=== PATIENT | female | born 1980 | race Caucasian/White ===

== ENCOUNTER 2018-12-10 11:33 | Day surgery (SDC) | payer OTHER, SELFPAY ==
--- NOTE | 2018-12-10 06:52 | HP.PCM_ITS ---
History and Physical Date of Admission: 12/10/18 HISTORY AND PHYSICAL ? Dorothy Joshua 1980 ? REFERRING PHYSICIAN: ??Waqar Rueda, JDE DEVELOPER ? CHIEF COMPLAINT: ??Consult (colonoscopy) ? HPI: The patient is a 38 year old female referred for endoscopy. ?Dorothy notes a family history of colon cancer-father was diagnosed and from colon cancer in his 50s. ?Patient had a prior colonoscopy by Dr. Angel in 2010 for evaluation of rectal bleeding. ?He had recommended a repeat colonoscopy in 5 years due to her family history. ?Patient denies any changes in bowel habits, blood in stools, dark stools or other concerns currently. ?The patient ?notes no history of upper GI complaints. ? Patient's past medical history is significant for hypercholesterolemia, coronary artery disease, myocardial infarction, s/p drug-eluting LAD stent placement, type I diabetes mellitus with insulin pump. ?Patient follows with ERIC Pitts in primary care and with Dr. Quintana in cardiology. ?Her most recent cardiology note from 05/20/[address] Quintana is reviewed, as well as her stress test from July 2018. ?She denies any chest pain, shortness of breath or recent hospitalizations. ? ? PAST MEDICAL HISTORY PAST MEDICAL HISTORY Diagnosis Date ? Hypercholesteremia ? ? PA (myocardial infarction) (HCC) 02/2016 ? Type I (juvenile type) diabetes mellitus without mention of complication, uncontrolled ? ? since age 11 ? ? PAST SURGICAL HISTORY PAST SURGICAL HISTORY Procedure Laterality Date ? DELIVERY ONLY ? 2004, 2006 ? , low cervical ? COLONOSCOP W/ OR W/O [facility] SPEC ? 06/04/08 ? COLONOSCOP W/ OR W/O [facility] SPEC ? 10/31/2011 ? Colonoscopy ? HEART CATHETERIZATION ? 03/16/2016 ? with stent placement ? MANIPULATION-SHOULDER DISLOCATION W/[facility] ? ? ? PAST SURGICAL HISTORY OF ? 1999 ? [place] ? PAST SURGICAL HISTORY OF ? ? ? Adnoids Removed ? RECONSTRUCT PROX HUMERAL IMPLANT Right 10/2016 ? Arthroplasty, shoulder ? ? CURRENT MEDICATIONS ? Current Outpatient Prescriptions: BRILINTA 90 mg tablet Take 1 tablet by mouth twice daily. aspirin 81 mg chewable tablet Take 1 tablet by mouth once daily. metoprolol succinate ER (TOPROL XL) 25 mg 24 hr tablet Take 1 tablet by mouth once daily. rosuvastatin (CRESTOR) 20 mg tablet Take 1 tablet by mouth daily at bedtime. nitroglycerin sublingual (NITROQUICK) 0.4 mg SL tablet Dissolve 1 tablet under the tongue as needed. FOR CHEST PAIN. IF NO RELIEF CALL 911 spironolactone (ALDACTONE) 25 mg tablet Take 0.5 tablets by mouth once daily. triamcinolone acetonide (KENALOG) 0.1 % cream Apply 1 application to affected area three times daily. Apply sparingly to area for rash/itching. coenzyme Q10 (COENZYME Q-10) 100 mg cap capsule Take 100 mg by mouth twice daily. ctfirsru-ndnaoejtsys-tlho cb25 116-100 mg cap Take by mouth once daily. Multivitamin capsule Take 1 capsule by mouth once daily. ferrous sulfate 325 mg (65 mg iron) tablet Take 325 mg by mouth daily with breakfast. enalapril (VASOTEC) 2.5 mg tablet Take half tablet daily (Patient taking differently: Take 1/4 of a tablet daily) insulin lispro (HUMALOG) 100 unit/mL injection as directed in insulin pump up to 100 units daily blood sugar diagnostic (Stylecrook ULTRA TEST) test strip check blood sugars 6 times daily glucagon, human recombinant, (GLUCAGON EMERGENCY KIT, HUMAN,) 1 mg injection INJECT ?SUBCUTANEOUSLY. USE DIRECTED insulin glargine (LANTUS) 100 unit/mL injection Use as directed if pump fails up to 50 units/day BIOTIN ORAL Take ?by mouth. ? Insulin Syringe-Needle U-100 (BD INSULIN SYRINGE UF II) 1/2 mL 31 x 5/16 Syrg use as directed when pump fails peg 3350-Electrolytes (GOLYTELY) 236-22.74-6.74 -5.86 gram suspension Take 4,000 mL by mouth one time only for 1 dose. ? No current facility-administered medications for this visit. ? ALLERGIES: Lipitor [Atorvastatin Calcium] ? PERSONAL HISTORY: SOCIAL HISTORY Social History ??Marital status: ?Spouse name: Santos ?Years of education: 18 ?Number of children: 2 ? 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 Social History Main Topics ??Smoking status: Never Smoker ?Smokeless tobacco: Never Used ?Alcohol use: No ?Sexual activity: Yes ?Partners with: Male ? control/protection: Tubal Ligation ? ? FAMILY HISTORY: FAMILY HISTORY FAMILY HISTORY Problem Relation Age of Onset ? Ischemic Heart Disease Mother ? ? Diabetes Mother ? ? Heart Maternal Grandfather ? ? Colon Cancer Father ? ? REVIEW OF SYMPTOMS: ??The review of systems data was entered by the nurse and reviewed by me ? Nursing Notes: Lalitha Holman RN ?10/30/2018 ?4:24 PM ?Signed REVIEW OF SYSTEMS: ?General:???The patient notes fatigue, denies weight loss, denies weight gain, denies feeling hot, and notes feelings of cold. ?Eyes: ?The patient denies glaucoma, denies eye injury/surgery, wears glasses or contacts. ?Ear/Nose/Throat: ?The patient denies allergies, denies hayfever, denies ear infections, and denies bloody noses. ?Cardiovascular: ?The patient denies chest pain, notes heart disease, denies high blood pressure,notes cardiac stent, notes prior heart attack, denies irregular heart beat, notes high cholesterol, ?denies poor circulation, denies heart failure, other cardiac issues, denies claudication, denies cold feet, denies peripheral arterial stent. ?Respiratory: ?The patient denies tuberculosis, denies pneumonia, denies frequent cough, denies pulmonary embolism, denies shortness of breath, and denies coughing up blood. ?Gastrointestinal: ?The patient denies difficulty swallowing, denies acid reflux, denies ulcers, denies vomiting, denies jaundice/hepatitis, denies gallbladder problems, denies black or tarry stools, denies hemorrhoids, denies bleeding from rectum, denies diverticulitis, denies constipation, denies diarrhea, denies loss of stool control, and denies hernias. ?Kidney/Bladder: ?The patient denies kidney stones, denies urine infections, and denies bloody urine. ?Skin: ?The patient denies a history of skin cancer, denies bleeding/changing moles, and denies a history of skin rash. ?Neurologic: ?The patient denies a history of epilepsy/convulsions, denies headaches, denies head/spinal injuries, and denies stroke/TIA. ?Psychiatric: ?The patient denies psychiatric medications, denies depression, and denies voices, denies substance abuse. ?Endocrine: ?The patient denies thyroid disorders, notes diabetes, and denies hormonal problems. ?Hematologic: ?The patient denies a history of bruising, denies bleeding, and denies anemia, denies blood clots. ?Infections: ?The patient denies a history of measles and mumps, denies rheumatic fever, and denies sexually transmitted diseases. ?Musculoskeletal: ?The patient denies back pain/injury, denies back problems, denies sciatica, denies knee/foot trouble, denies arthritis, or denies gout. ? ? When was patient's last Mammogram screening? 08/2018 ? ?Last Colonoscopy: ?10/2011 ? Lalitha Holman RN? I have confirmed and edited as necessary, the PFSH and ROS obtained by others. ? ? PHYSICAL EXAMINATION: ? General: ?The patient is 38 year old female, well nourished, well hydrated in no acute distress. ?The patient is oriented to time, place, and person. ? VITALS: Blood pressure 96/60, pulse 66, weight 59.4 kg (131 lb).?Body mass index is 22.14 kg/m?.? ? HEENT: ?Normal cephalic, ataumatic, pupils are equally round, sclera are anicteric, mucous membranes are moist, oropharynx is clear. ?Neck has no masses, asymmetry or lymphadenopathy. ? ? Respiratory: ?Clear to auscultation and percussion. ?Normal respiratory excursion and pattern. ? Cardiac: ?Examination is regular rate and rhythm. ?Normal S1/S2 ? Abdominal exam: ?Soft, nontender, ?with no palpable masses. ?No hepatosplenomegaly. ?No palpable hernias. ? Rectal exam: exam deferred ? Extremities: ?no clubbing, cyanosis or edema. ?No adenopathy. ? Other: ? LABORATORY VALUES: As Noted ? RADIOLOGIC STUDIES: ?As Noted ? ? Assessment ? IMPRESSION: encounter for high-risk screening colonoscopy due to family history of colon cancer in a first-degree relative ? PLAN: ?I have reviewed my findings with Dr. Mcgregor. ?Dr. Mcgregor has also reviewed patient's recent cardiac testing. We will plan for screening colonoscopy with Monitored Anesthetic Care. ?We discussed the risks and benefits of the planned endoscopy. ?I have informed the patient that complications can occur including failure to complete the endoscopy and perforation. ?The patient had the opportunity to ask questions concerning the planned endoscopy. ?My staff has also explained the procedure to the patient in understandable terms and has given the patient printed material concerning the procedure. ?The patient freely consents to surgery. ? I plan to use golytely bowel preparation for endoscopy ? Patient to remain on?her Brilinta and aspirin for the procedure ? Patient has insulin pump, states she is comfortable managing adjustments which will be required when she is on clear liquids prior to procedure ? I plan for monitored anesthetic care.??Patient will need PAT ? Diagnoses: (Z12.11) Encounter for screening for malignant neoplasm of colon ?(primary encounter diagnosis) (Z80.0) Family history of colon cancer ? My findings have been communicated to Dr. Rueda?via shared medical record. ?This note will be forwarded to ?ERIC Abel. ?? Return to Clinic: The patient is instructed to follow-up with me 1 week post operatively. ? ? Leslie Hendrickson PA-C
[2018-12-10 11:48] VITALS: BP 128/67; PULSE 84; RESP 16; TEMP 37.3; O2SAT 100; BMI 21.9
[2018-12-10 12:06] LABS: Bedside Glucose 113 mg/dL (70-110)
[2018-12-10 13:32] VITALS: BP 104/64; BP 128/67; PULSE 87; RESP 16; TEMP 36.5; O2SAT 95
[2018-12-10 13:37] VITALS: BP 109/70; BP 128/67; PULSE 85; RESP 16; O2SAT 100
[2018-12-10 13:42] VITALS: BP 107/71; BP 128/67; PULSE 78; RESP 16; O2SAT 100
[2018-12-10 13:47] VITALS: BP 116/77; BP 128/67; PULSE 80; RESP 16; TEMP 37.1; O2SAT 100
[2018-12-10 14:07] VITALS: BP 128/67
--- NOTE | 2018-12-15 11:10 | OP.ENDO_ITS ---
Patient Name: Dorothy Joshua Procedure Date: 12/10/2018 12:33 PM Date of : 1980 Age: 38 Procedure: Colonoscopy Indications: Screening in patient at increased risk: Family history of 1st-degree relative with colorectal cancer Providers: Waqar Mcgregor MD Referring MD: Waqar Rueda Medicines: Monitored Anesthesia Care Patient Profile: This is a 38 year old female. Refer to note in patient chart for documentation of history and physical. Last Colonoscopy: 5 years ago. Complications: No immediate complications. Procedure: Pre-Anesthesia Assessment: - Prior to the procedure, a History and Physical was performed, and patient medications and allergies were reviewed. The patient is competent. The risks and benefits of the procedure and the sedation options and risks were discussed with the patient. All questions were answered and informed consent was obtained. Patient identification and proposed procedure were verified by the physician, the nurse and the childbirth and infant care teacher in the procedure room. Mental Status Examination: alert and oriented. Airway Examination: normal oropharyngeal airway and neck mobility. Respiratory Examination: clear to auscultation. CV Examination: normal. Prophylactic Antibiotics: The patient does not require prophylactic antibiotics. Prior Anticoagulants: The patient has taken anticoagulant medication, last dose was 1 day prior to procedure. ASA Grade Assessment: III - A patient with severe systemic disease. After reviewing the risks and benefits, the patient was deemed in satisfactory condition to undergo the procedure. The anesthesia plan was to use moderate sedation / analgesia (conscious sedation). Immediately prior to administration of medications, the patient was re-assessed for adequacy to receive sedatives. The heart rate, respiratory rate, oxygen saturations, blood pressure, adequacy of pulmonary ventilation, and response to care were monitored throughout the procedure. The physical status of the patient was re-assessed after the procedure. After I obtained informed consent, the scope was passed under direct vision. Throughout the procedure, the patient's blood pressure, pulse, and oxygen saturations were monitored continuously. The pediatric colonoscope was introduced through the anus and advanced to the cecum, identified by the appendiceal orifice, ileocecal valve and palpation. The colonoscopy was performed without difficulty. The patient tolerated the procedure well. The quality of the bowel preparation was good. Scope In: 1:11:05 PM Scope Withdrawal Time 0 hours 3 minutes 52 seconds Scope Out: 1:26:21 PM Total Procedure Duration Time 0 hours 15 minutes 16 seconds Findings: The perianal and digital rectal examinations were normal. The entire examined colon appeared normal on direct and retroflexion views. Impression: - The entire examined colon is normal on direct and retroflexion views. - No specimens collected. Recommendation: - Discharge patient to home. - Resume previous diet. - Continue present medications. - Repeat colonoscopy in 5 years for screening purposes. Procedure Code(s): --- Professional --- 75345, Colonoscopy, flexible; diagnostic, including collection of specimen(s) by brushing or washing, when performed (separate procedure) CPT copyright 2017 [employer]. All rights reserved. The codes documented in this report are preliminary and upon pocket grinder operator review may be revised to meet current compliance requirements. Waqar Mcgregor MD 12/10/2018 1:36:23 PM This report has been signed electronically. Number of Addenda: 0 Note Initiated On: 12/10/2018 12:33 PM
--- OUTSIDE RECORDS SUMMARY | 2019-02-14 07:40 | XMS RPT_ITS | Clinical Summary ---
:1980 Author Organization [facility]ly [facility] Address [address] [place] [address] Phone Care Team Providers Name Role Phone Cheryl CONTENT CURATOR, Ivone Bach Unavailable Conditions or Problems Problem Name Problem Code Onset Status Entry Provider Comment Standard Annotate Date Date Description Insulin pump 615360178 Active Ivone Bach Equipment status (SNOMED CT) 05/01 05/02 Cheryl CONTENT CURATOR finding Hx of urinary 143316550781 Active Ivone Bach History of tract 7 (SNOMED 01/08 01/08 Shook CONTENT CURATOR urinary tract infection CT) infection Breast lump 98922074 Active Ivone Bach Breast lump (SNOMED CT) 01/08 01/08 Shook CONTENT CURATOR Cataract 900451150 Active Ivone Bach Cataract (SNOMED CT) 01/08 01/08 Shotim CONTENT CURATOR Hyperlipidemi 15215906 Active Ivone Bach Hyperlipidemia a (SNOMED CT) 01/08 01/08 Rhiannaok CONTENT CURATOR Hx of cardiac 452544611 Active Ivone Bach History of stents (SNOMED CT) 01/08 01/08 Cheryl CONTENT CURATOR placement of stent for coronary artery disease Diabetes 833181821920 Active Ivone Bach Diabetes mellitus, 02 (SNOMED 01/08 01/08 Shook CONTENT CURATOR mellitus type [address] without without retinopathy retinopathy Medications Medication Instructions Start Stop Generic Name NDC Provider Date Date HUMALOG 100 Up to 65 units INSULIN LISPRO 79722443117 Ivone Bach UNIT/ML SOCT daily in Cheryl HOYOS insulin pump ENALAPRIL MALEATE Take one daily ENALAPRIL 83205193074 Ivone Bach 2.5 MG TABS MALEATE Cheryl CONTENT CURATOR ONE TOUCH ULTRA Check BG 6 TOUCH ULTRA Ivone J TEST STRIPS times daily 29 TEST STRIPS Shook CONTENT CURATOR GLUCAGON Use as directed GLUCAGON (RDNA) 32691230833 Ivone Mikala EMERGENCY 1 MG Shotim CONTENT CURATOR KIT HUMALOG 100 Up to 65 units INSULIN LISPRO 45306855699 Ivone Bach UNIT/ML SOCT daily in pump. Shook CONTENT CURATOR HUMALOG 100 Inject up to 65 INSULIN LISPRO 34193120255 Ivone Bach UNIT/ML SOLN units daily in Shook CONTENT CURATOR insulin pump PRAVACHOL 40 MG One tablet by / PRAVASTATIN 00591538824 Ivone J TABS mouth daily 07 SODIUM Shotim CONTENT CURATOR HUMALOG SOLN INSULIN LISPRO 80228106361 Dionte Deepa SOLN Kelvin LIPITOR 40 MG One tablet by ATORVASTATIN 45940078226 Dionte L TABS mouth daily CALCIUM Kelvin LIPITOR 40 MG One tablet by ATORVASTATIN 63232805360 Ivone J TABS mouth daily /07 CALCIUM Shook CONTENT CURATOR ENALAPRIL MALEATE ENALAPRIL 87228492293 Dionte Deepa TABS MALEATE TABS Kelvin SPIRONOLACTONE 25 One tablet by SPIRONOLACTONE 04444278396 Dionte L MG TABS mouth daily Kelvin BRILINTA 90 MG One tablet by TICAGRELOR 97568813360 Dionte L TABS mouth twice Kelvin daily ASPIR-LOW 81 MG One tablet by ASPIRIN 70751060848 Dionte Deepa TBEC mouth daily Kelvin BIOTIN 1000 MCG One tablet by BIOTIN 39978053166 Dionte L TABS mouth daily Kelvin Medications Administered No information available. Allergies, Adverse Reactions, Alerts Observed no known allergies at Results Date Name Value Unit Range Flag Description Office Visit: Transition of care PHQ-9 SCORE 2 Adult depression screening assessment PHQ2 SCORE 0 Adolescent depression screening assessment Office Visit: Follow up: Diabetes MEDS REVIEW Done Documentation of current medications (procedure) SMOK STATUS Never smoker Tobacco use [facility] Plan of Care Type Date Detail Pending order *HgA1C Pending order *CMP Complete Metabolic Panel Pending order *Lipid Profile Pending order *Microalbumin, Creatine Ratio, rand urine Procedures No information available. Vital Signs Date Name Value Unit Description BMI (Body Mass Index) 22.96 kg/m2 Body Mass Index [Ratio] Body Temperature 97.9 [degF] temperature E&M BP Diastolic 68 mm[Hg] blood pressure, diastolic - 8462-4 BP Systolic 106 mm[Hg] blood pressure, systolic - 8480-6 Heart Rate 71 /min pulse rate E&M - 8867-4 Height 64 [in_us] height E&M - 8302-2 O2 % BldC Oximetry 97 % oxygen saturation, oximetry Respiratory Rate 18 /min respiratory rate E&M - 9279-1 Weight Measured 133.8 [lb_av] weight E&M - 3141-9 BSA (Body Surface Area) 1.66 body surface area Height 162.56 cm height in centimeters E&M Weight Measured 61.64 kg weight in kilograms E&M
--- OUTSIDE RECORDS SUMMARY | 2019-02-14 07:40 | XMS RPT_ITS | Clinical Summary ---
:1980 Author Organization [facility], [facility] Address [address] [place] [address] Phone Care Team Providers Name Role Phone Freda Marshall LPN Unavailable Unavailable Conditions or Problems Problem Name Problem Code Onset Status Entry Provider Comment Standard Annotate Date Date Description Parathyroid 52994804 Active Ivone Bach Disorder of disorder (SNOMED CT) 12/03 12/03 Shook SCALE CLERK parathyroid gland Insulin pump 876905673 Active Ivone Bach Equipment status (SNOMED CT) 05/01 05/02 Shook SCALE CLERK finding Hx of urinary 684468596126 Active Ivone Bach History of tract 7 (SNOMED 01/08 01/08 Shook SCALE CLERK urinary tract infection CT) infection Breast lump 41878800 Active Ivone Bach Breast lump (SNOMED CT) 01/08 01/08 Shook SCALE CLERK Cataract 743924827 Active Ivone Bach Cataract (SNOMED CT) 01/08 01/08 Shook SCALE CLERK Hyperlipidemi 30601055 Active Ivone Bach Hyperlipidemia a (SNOMED CT) 01/08 01/08 Shook SCALE CLERK Hx of cardiac 067657695 Active Ivone Bach History of stents (SNOMED CT) 01/08 01/08 Shook SCALE CLERK placement of stent for coronary artery disease Diabetes 473167542550 Active Ivone Bach Diabetes mellitus, 02 (SNOMED 01/08 01/08 Shook SCALE CLERK mellitus type [address]) without without retinopathy retinopathy Medications Medication Instructions Start Stop Generic Name NDC Provider Date Date REBECCA CONTOUR test BG level / GLUCOSE BLOOD 36973631396 Ivone Bach NEXT TEST STRP up to 5 times 29 Shook SCALE CLERK daily TEGADERM FILM apply over / TRANSPARENT 62203095035 Ivone Bach 2-38X2-3/4 insulin pump 28 DRESSINGS [facility] SCALE CLERK transmitter q 3 days HUMALOG 100 Up to 65 units INSULIN LISPRO 29772152068 Ivone Bach UNIT/ML SOCT daily in Shook SCALE CLERK insulin pump ENALAPRIL MALEATE Take one daily ENALAPRIL 51087080527 Ivone J 2.5 MG TABS MALEATE [facility] SCALE CLERK GLUCAGON Use as directed GLUCAGON (RDNA) 04757938113 Ivone Bach EMERGENCY 1 MG [facility] SCALE CLERK KIT ONE TOUCH ULTRA Check BG 6 TOUCH ULTRA Ivone Bach TEST STRIPS times daily 29 TEST STRIPS Shoms SCALE CLERK HUMALOG 100 Up to 65 units INSULIN LISPRO 31186877179 Ivone Bach UNIT/ML SOCT daily in pump. [facility] SCALE CLERK HUMALOG SOLN INSULIN LISPRO 46975054221 Dionte Arenas SOLN Kelvin LIPITOR 40 MG One tablet by ATORVASTATIN 25588658684 Dionte L TABS mouth daily CALCIUM Kelvin LIPITOR 40 MG One tablet by ATORVASTATIN 70335027908 Ivone Bach TABS mouth daily / CALCIUM [facility] SCALE CLERK ENALAPRIL MALEATE ENALAPRIL 04917056530 Dionte Deepa TABS MALEATE TABS Kelvin SPIRONOLACTONE 25 One tablet by SPIRONOLACTONE 26302901122 Dionte L MG TABS mouth daily Kelvin BRILINTA 90 MG One tablet by TICAGRELOR 34823260893 Dionte L TABS mouth twice Kelvin daily ASPIR-LOW 81 MG One tablet by ASPIRIN 81990877331 Dionte L TBEC mouth daily Kelvin BIOTIN 1000 MCG One tablet by BIOTIN 40307792481 Dionte Deepa TABS mouth daily Kelvin HUMALOG 100 Inject up to 65 INSULIN LISPRO 68020696515 Ivone Bach UNIT/ML SOLN units daily in Shook SCALE CLERK insulin pump PRAVACHOL 40 MG One tablet by / PRAVASTATIN 74457588556 Ivone Bach TABS mouth daily 07 SODIUM Shook SCALE CLERK COQ10 CAPS COENZYME Q10 96070678864 Ivone Bach CAPS Shook SCALE CLERK GLUCOSAMINE CAPS GLUCOSAMINE 34254360392 Ivone Bach SULFATE CAPS Shook SCALE CLERK Medications Administered No information available. Allergies, Adverse Reactions, Alerts Observed no known allergies at Results Date Name Value Unit Range Flag Description Office Visit: Transition of care PHQ-9 SCORE 2 Adult depression screening assessment PHQ2 SCORE 0 Adult depression screening assessment Office Visit: Follow up: Diabetes SMOK STATUS Never smoker Tobacco use [facility] Lab Report: Comprehensive Metabolic Profil ANION GAP 7 5-15 anion gap, serum CO2 26.0 mmol/L 21.0-32.0 carbon dioxide, venous blood CHLORIDE 105 mmol/L 98-107 chloride, serum POTASSIUM 4.4 mmol/L 3.5-5.1 potassium, serum SODIUM 138 mmol/L 136-145 sodium, serum BILI TOTAL 0.30 mg/dL 0.20-1.00 bilirubin, serum, total SGPT (ALT) 31 U/L 12-78 alanine aminotransferase (SGPT), serum ALK PHOS 62 U/L 45-117 alkaline phosphatase, serum SGOT (AST) 45 U/L 15-37 H aspartate aminotransferase (SGOT), serum CALCIUM 8.3 mg/dL 8.5-10.1 L calcium, serum A/G RATIO 0.9 RATIO 0.9-2.4 albumin/globulin ratio, serum GLOBULIN TOT 3.7 g/dL 2.2-4.2 globulins, serum, total ALBUMIN 3.4 g/dL 3.4-5.0 albumin, serum PROTEIN, TOT 7.1 g/dL 6.4-8.2 protein, total, serum BUN/CREAT 20.8 RATIO 10-20 H urea nitrogen/creatinine ratio, serum GFRAA 107 mL/min >60 Glomerular Filtration rate GFR EST 89 mL/min >60 estimated glomerular filtration rate CREATININE 0.77 mg/dL 0.55-1.02 creatinine, serum BUN 16 mg/dL 7-18 urea nitrogen, blood GLUCOSE SER 223 mg/dL 70-110 H blood glucose Lab Report: Hemoglobin A1c HGBA1C 7.6 % 4.2-6.3 H Hemoglobin A1c/Hemoglobin.total in Blood Office Visit: Diabetes and parathyroid disorder. MEDS REVIEW Done Documentation of current medications (procedure) Plan of Care Type Date Detail Pending order *PTH (Parathyroid Hormone) Pending order *[id number] Vitamin D, 1, 25- DiHydroxy Pending order Calcium Pending order *HgA1C Pending order *CMP Complete Metabolic Panel Pending order *HgA1C Pending order *CMP Complete Metabolic Panel Pending order *Lipid Profile Pending order *Microalbumin, Creatine Ratio, rand urine Procedures Code Procedure Name Date Entry Date 785-11 *CMP Complete Metabolic Panel 4548-4 *HgA1C Vital Signs Date Name Value Unit Description BMI (Body Mass Index) 23.24 kg/m2 Body Mass Index [Ratio] Body Temperature 97.7 [degF] temperature E&M BP Diastolic 75 mm[Hg] blood pressure, diastolic - 8462-4 BP Systolic 111 mm[Hg] blood pressure, systolic - 8480-6 Heart Rate 64 /min pulse rate E&M - 8867-4 Height 64 [in_us] height E&M - 8302-2 Respiratory Rate 18 /min respiratory rate E&M - 9279-1 Weight Measured 135.4 [lb_av] weight E&M - 3141-9 BSA (Body Surface Area) 1.66 body surface area Height 162.56 cm height in centimeters E&M Weight Measured 61.64 kg weight in kilograms E&M
--- OUTSIDE RECORDS SUMMARY | 2019-02-14 07:40 | XMS RPT_ITS | Clinical Summary ---
:1980 Author Organization [facility], [facility] Address [address] [place] [address] Phone Care Team Providers Name Role Phone Cheryl HOYOS, Ivone Bach Unavailable Conditions or Problems Problem Name Problem Code Onset Status Entry Provider Comment Standard Annotate Date Date Description Insulin pump 619206408 Active Ivone Bach Equipment status (SNOMED CT) 05/01 05/02 Cheryl COSMETOLOGY INSTRUCTOR finding Hx of urinary 664912533042 Active Ivone Bach History of tract 7 (SNOMED 01/08 01/08 Shook COSMETOLOGY INSTRUCTOR urinary tract infection CT) infection Breast lump 85889268 Active Ivone Bach Breast lump (SNOMED CT) 01/08 01/08 Shook COSMETOLOGY INSTRUCTOR Cataract 420523408 Active Ivone Bach Cataract (SNOMED CT) 01/08 01/08 Shook COSMETOLOGY INSTRUCTOR Hyperlipidemi 92562501 Active Ivone Bach Hyperlipidemia a (SNOMED CT) 01/08 01/08 Rhiannaok COSMETOLOGY INSTRUCTOR Hx of cardiac 180172642 Active Ivone Bach History of stents (SNOMED CT) 01/08 01/08 Cheryl COSMETOLOGY INSTRUCTOR placement of stent for coronary artery disease Diabetes 730078404529 Active Ivone Bach Diabetes mellitus, 02 (SNOMED 01/08 01/08 Shook COSMETOLOGY INSTRUCTOR mellitus type [address]) without without retinopathy retinopathy Medications Medication Instructions Start Stop Generic Name NDC Provider Date Date REBECCA CONTOUR test BG level / GLUCOSE BLOOD 97343539445 Ivone Bach NEXT TEST STRP up to 5 times 29 Shotim COSMETOLOGY INSTRUCTOR daily TEGADERM FILM apply over / [id number] Ivone Bach 2-3/8X2-3/4 insulin pump 28 DRESSINGS Cheryl HOYOS MISC transmitter q 3 days HUMALOG 100 Up to 65 units INSULIN LISPRO 02023054547 Ivone Bach UNIT/ML SOCT daily in [facility] COSMETOLOGY INSTRUCTOR insulin pump ENALAPRIL MALEATE Take one daily ENALAPRIL 41709733744 Ivone J 2.5 MG TABS MALEATE [facility] COSMETOLOGY INSTRUCTOR GLUCAGON Use as directed GLUCAGON (RDNA) 78044509995 Ivone Bach EMERGENCY 1 MG [facility] COSMETOLOGY INSTRUCTOR KIT ONE TOUCH ULTRA Check BG 6 TOUCH ULTRA Ivone J TEST STRIPS times daily 29 TEST STRIPS [facility] COSMETOLOGY INSTRUCTOR HUMALOG 100 Up to 65 units INSULIN LISPRO 34773842997 Ivone Bach UNIT/ML SOCT daily in pump. [facility] COSMETOLOGY INSTRUCTOR HUMALOG SOLN INSULIN LISPRO 60000291836 Dionte Deepa SOLN Kelvin LIPITOR 40 MG One tablet by ATORVASTATIN 08009704888 Dionte L TABS mouth daily CALCIUM Kelvin LIPITOR 40 MG One tablet by ATORVASTATIN 14326982395 Ivone J TABS mouth daily / CALCIUM [facility] COSMETOLOGY INSTRUCTOR ENALAPRIL MALEATE ENALAPRIL 95833869606 Dionte L TABS MALEATE TABS Kelvin SPIRONOLACTONE 25 One tablet by SPIRONOLACTONE 38321758413 Dionte L MG TABS mouth daily Kelvin BRILINTA 90 MG One tablet by TICAGRELOR 09818835052 Dionte L TABS mouth twice Kelvin daily ASPIR-LOW 81 MG One tablet by ASPIRIN 03560023553 Dionte L TBEC mouth daily Kelvin BIOTIN 1000 MCG One tablet by BIOTIN 82752945606 Dionte L TABS mouth daily Kelvin HUMALOG 100 Inject up to 65 INSULIN LISPRO 47902905773 Ivone Bach UNIT/ML SOLN units daily in [facility] COSMETOLOGY INSTRUCTOR insulin pump PRAVACHOL 40 MG One tablet by / PRAVASTATIN 84740679024 Ivone J TABS mouth daily SODIUM [facility] COSMETOLOGY INSTRUCTOR Medications Administered No information available. Allergies, Adverse Reactions, Alerts Observed no known allergies at Results Date Name Value Unit Range Flag Description Office Visit: Transition of care PHQ-9 SCORE 2 Adult depression screening assessment PHQ2 SCORE 0 Adult depression screening assessment Office Visit: Follow up: Diabetes MEDS REVIEW Done Documentation of current medications (procedure) SMOK STATUS Never smoker Tobacco use [facility] Plan of Care Type Date Detail Pending [...]
--- OUTSIDE RECORDS SUMMARY | 2019-02-14 07:40 | XMS RPT_ITS | Clinical Summary ---
:1980 Author Organization [facility], [facility] Address [address] [place] [address] Phone Care Team Providers Name Role Phone Cheryl HOYOS, Ivone Bach Unavailable Conditions or Problems Problem Name Problem Code Onset Status Entry Provider Comment Standard Annotate Date Date Description Insulin pump 796670209 Active Ivone Bach Equipment status (SNOMED CT) 05/01 05/02 Shotim DASHBOARD DEVELOPER finding Hx of urinary 729582731396 Active Ivone Bach History of tract 7 (SNOMED 01/08 01/08 Shook DASHBOARD DEVELOPER urinary tract infection CT) infection Breast lump 07921971 Active Ivone Bach Breast lump (SNOMED CT) 01/08 01/08 Shook DASHBOARD DEVELOPER Cataract 490081822 Active Ivone Bach Cataract (SNOMED CT) 01/08 01/08 Shook DASHBOARD DEVELOPER Hyperlipidemi 26738525 Active Ivone Bach Hyperlipidemia a (SNOMED CT) 01/08 01/08 Shook DASHBOARD DEVELOPER Hx of cardiac 243906877 Active Ivone Bach History of stents (SNOMED CT) 01/08 01/08 Cheryl DASHBOARD DEVELOPER placement of stent for coronary artery disease Diabetes 569493576589 Active Ivone Bach Diabetes mellitus, 02 (SNOMED 01/08 01/08 Shook DASHBOARD DEVELOPER mellitus type [address]) without without retinopathy retinopathy Medications Medication Instructions Start Stop Generic Name NDC Provider Date Date REBECCA CONTOUR test BG level / GLUCOSE BLOOD 60061329045 Ivone Bach NEXT TEST STRP up to 5 times 29 Shotim DASHBOARD DEVELOPER daily TEGADERM FILM apply over 04734780981 Ivone Bach 2-3/8X2-3/4 insulin pump 28 DRESSINGS Cheryl DASHBOARD DEVELOPER transmitter q 3 days HUMALOG 100 Up to 65 units INSULIN LISPRO 40170798406 Ivone Bach UNIT/ML SOCT daily in [facility] DASHBOARD DEVELOPER insulin pump ENALAPRIL MALEATE Take one daily ENALAPRIL 98374598333 Ivone J 2.5 MG TABS MALEATE [facility] DASHBOARD DEVELOPER GLUCAGON Use as directed GLUCAGON (RDNA) 93052499391 Ivone Bach EMERGENCY 1 MG [facility] DASHBOARD DEVELOPER KIT ONE TOUCH ULTRA Check BG 6 TOUCH ULTRA Ivone J TEST STRIPS times daily 29 TEST STRIPS [facility] DASHBOARD DEVELOPER HUMALOG 100 Up to 65 units INSULIN LISPRO 51886277945 Ivone Bach UNIT/ML SOCT daily in pump. [facility] DASHBOARD DEVELOPER HUMALOG SOLN INSULIN LISPRO 39896443454 Dionte L SOLN Kelvin LIPITOR 40 MG One tablet by ATORVASTATIN 93715089863 Dionte L TABS mouth daily CALCIUM Kelvin LIPITOR 40 MG One tablet by ATORVASTATIN 79740816346 Ivone J TABS mouth daily / CALCIUM [facility] DASHBOARD DEVELOPER ENALAPRIL MALEATE ENALAPRIL 15053872709 Dionte Deepa TABS MALEATE TABS Kelvin SPIRONOLACTONE 25 One tablet by SPIRONOLACTONE 68608320962 Dionte L MG TABS mouth daily Kelvin BRILINTA 90 MG One tablet by TICAGRELOR 27129744968 Dionte L TABS mouth twice Kelvin daily ASPIR-LOW 81 MG One tablet by ASPIRIN 10300320954 Dionte L TBEC mouth daily Kelvin BIOTIN 1000 MCG One tablet by BIOTIN 46488584526 Dionte Deepa TABS mouth daily Kelvin HUMALOG 100 Inject up to 65 INSULIN LISPRO 16871645982 Ivone Bach UNIT/ML SOLN units daily in [facility] DASHBOARD DEVELOPER insulin pump PRAVACHOL 40 MG One tablet by / PRAVASTATIN 35852013665 Ivone J TABS mouth daily SODIUM [facility] DASHBOARD DEVELOPER Medications Administered No information available. Allergies, Adverse Reactions, Alerts Observed no known allergies at Results Date Name Value Unit Range Flag Description Office Visit: Transition of care PHQ-9 SCORE 2 Adult depression screening assessment PHQ2 SCORE 0 Adult depression screening assessment Office Visit: Follow up: Diabetes MEDS REVIEW Done Documentation of current medications (procedure) SMOK STATUS Never smoker Tobacco use [facility] Lab Report: Comprehensive Metabolic Profil ANION [...] SER 223 mg/dL 70-110 H blood glucose Plan of Care Type Date Detail Appointment 04:30 PM Ivone Luna NP, [address] [facility], [address], [place], [address], Pending order *HgA1C Pending order *CMP Complete Metabolic Panel Pending order *HgA1C Pending order *CMP Complete Metabolic Panel Pending order *Lipid Profile Pending order *Microalbumin, Creatine Ratio, rand urine Procedures Code Procedure Name Date Entry Date 785-11 *CMP Complete Metabolic Panel Vital Signs Date Name Value Unit Description [...]
--- OUTSIDE RECORDS SUMMARY | 2019-02-14 07:40 | XMS RPT_ITS | Clinical Summary ---
:1980 Author Organization [facility] Address [address] [place] [address] Phone Care Team Providers Name Role Phone Cheryl VARYING EXCEPTIONALITIES TEACHER, Ivone Bach Unavailable Conditions or Problems Problem Name Problem Code Onset Status Entry Provider Comment Standard Annotate Date Date Description Insulin pump 593136953 Active Ivone Bach Equipment status (SNOMED CT) 05/01 05/02 Cheryl VARYING EXCEPTIONALITIES TEACHER finding Hx of urinary 981468342730 Active Ivone Bach History of tract 7 (SNOMED 01/08 01/08 Shook VARYING EXCEPTIONALITIES TEACHER urinary tract infection CT) infection Breast lump 97370588 Active Ivone Bach Breast lump (SNOMED CT) 01/08 01/08 Shook VARYING EXCEPTIONALITIES TEACHER Cataract 296553919 Active Ivone Bach Cataract (SNOMED CT) 01/08 01/08 Shotim VARYING EXCEPTIONALITIES TEACHER Hyperlipidemi 35122543 Active Ivone Bach Hyperlipidemia a (SNOMED CT) 01/08 01/08 Rhiannaok VARYING EXCEPTIONALITIES TEACHER Hx of cardiac 719479848 Active Ivone Bach History of stents (SNOMED CT) 01/08 01/08 Cheryl VARYING EXCEPTIONALITIES TEACHER placement of stent for coronary artery disease Diabetes 605686750534 Active Ivone Bach Diabetes mellitus, 02 (SNOMED 01/08 01/08 Shook VARYING EXCEPTIONALITIES TEACHER mellitus type [address]) without without retinopathy retinopathy Medications Medication Instructions Start Stop Generic Name NDC Provider Date Date HUMALOG 100 Up to 65 units INSULIN LISPRO 94625447378 Ivone Bach UNIT/ML SOCT daily in Cheryl HOYOS insulin pump ENALAPRIL MALEATE Take one daily ENALAPRIL 27874325649 Ivone Bach 2.5 MG TABS MALEATE Cheryl VARYING EXCEPTIONALITIES TEACHER ONE TOUCH ULTRA Check BG 6 TOUCH ULTRA Ivone J TEST STRIPS times daily 29 TEST STRIPS Shook VARYING EXCEPTIONALITIES TEACHER GLUCAGON Use as directed GLUCAGON (RDNA) 44509266814 Ivone Mikala EMERGENCY 1 MG Shotim VARYING EXCEPTIONALITIES TEACHER KIT HUMALOG 100 Up to 65 units INSULIN LISPRO 94991061188 Ivone Bach UNIT/ML SOCT daily in pump. Shook VARYING EXCEPTIONALITIES TEACHER HUMALOG 100 Inject up to 65 INSULIN LISPRO 98220007619 Ivone Bach UNIT/ML SOLN units daily in Shook VARYING EXCEPTIONALITIES TEACHER insulin pump PRAVACHOL 40 MG One tablet by / PRAVASTATIN 84929076401 Ivone J TABS mouth daily 07 SODIUM Shotim VARYING EXCEPTIONALITIES TEACHER HUMALOG SOLN INSULIN LISPRO 83758817317 Dionte Deepa SOLN Kelvin LIPITOR 40 MG One tablet by ATORVASTATIN 96272568470 Dionte L TABS mouth daily CALCIUM Kelvin LIPITOR 40 MG One tablet by ATORVASTATIN 55978358890 Ivone J TABS mouth daily /07 CALCIUM Shook VARYING EXCEPTIONALITIES TEACHER ENALAPRIL MALEATE ENALAPRIL 81876909859 Dionte Deepa TABS MALEATE TABS Kelvin SPIRONOLACTONE 25 One tablet by SPIRONOLACTONE 09115034158 Dionte L MG TABS mouth daily Kelvin BRILINTA 90 MG One tablet by TICAGRELOR 94649013296 Dionte L TABS mouth twice Kelvin daily ASPIR-LOW 81 MG One tablet by ASPIRIN 45541191176 Dionte Deepa TBEC mouth daily Kelvin BIOTIN 1000 MCG One tablet by BIOTIN 05233472178 Dionte L TABS mouth daily Kelvin Medications [...]
--- OUTSIDE RECORDS SUMMARY | 2019-02-14 07:40 | XMS RPT_ITS | Clinical Summary ---
:1980 Author Organization [facility], [facility] Address [address] [place] [address] Phone Care Team Providers Name Role Phone Freda Marshall LPN Unavailable Unavailable Conditions or Problems Problem Name Problem Code Onset Status Entry Provider Comment Standard Annotate Date Date Description Parathyroid 74369881 Active Ivone Bach Disorder of disorder (SNOMED CT) 12/03 12/03 Shook DRAMATIC ARTS HISTORIAN parathyroid gland Insulin pump 992323819 Active Ivone Bach Equipment status (SNOMED CT) 05/01 05/02 Shook DRAMATIC ARTS HISTORIAN finding Hx of urinary 796664630836 Active Ivone Bach History of tract 7 (SNOMED 01/08 01/08 Shook DRAMATIC ARTS HISTORIAN urinary tract infection CT) infection Breast lump 42877202 Active Ivone Bach Breast lump (SNOMED CT) 01/08 01/08 Shook DRAMATIC ARTS HISTORIAN Cataract 469353352 Active Ivone Bach Cataract (SNOMED CT) 01/08 01/08 Shook DRAMATIC ARTS HISTORIAN Hyperlipidemi 12866536 Active Ivone Bach Hyperlipidemia a (SNOMED CT) 01/08 01/08 Shook DRAMATIC ARTS HISTORIAN Hx of cardiac 889875249 Active Ivone Bach History of stents (SNOMED CT) 01/08 01/08 Shook DRAMATIC ARTS HISTORIAN placement of stent for coronary artery disease Diabetes 656244717045 Active Ivone Bach Diabetes mellitus, 02 (SNOMED 01/08 01/08 Shook DRAMATIC ARTS HISTORIAN mellitus type [address]) without without retinopathy retinopathy Medications Medication Instructions Start Stop Generic Name NDC Provider Date Date REBECCA CONTOUR test BG level / GLUCOSE BLOOD 25990288438 Ivone Bach NEXT TEST STRP up to 5 times 29 Shook DRAMATIC ARTS HISTORIAN daily TEGADERM FILM apply over / TRANSPARENT 60301533573 Ivone Bach 2-38X2-3/4 insulin pump 28 DRESSINGS Shomn DRAMATIC ARTS HISTORIAN transmitter q 3 days ENALAPRIL MALEATE Take one daily ENALAPRIL 37361567252 Ivone J 2.5 MG TABS MALEATE Shomn DRAMATIC ARTS HISTORIAN HUMALOG 100 Up to 65 units INSULIN LISPRO 21730200387 Ivone J UNIT/ML SOCT daily in [facility] DRAMATIC ARTS HISTORIAN insulin pump HUMALOG 100 Up to 65 units INSULIN LISPRO 80659186021 Ivone J UNIT/ML SOCT daily in pump. Shomn DRAMATIC ARTS HISTORIAN ONE TOUCH ULTRA Check BG 6 TOUCH ULTRA Ivone J TEST STRIPS times daily 29 TEST STRIPS [facility] DRAMATIC ARTS HISTORIAN GLUCAGON Use as directed GLUCAGON (RDNA) 26397892955 Ivone Bach EMERGENCY 1 MG [facility] DRAMATIC ARTS HISTORIAN KIT BIOTIN 1000 MCG One tablet by BIOTIN 68776058727 Dionte Arenas TABS mouth daily Kelvin HUMALOG 100 Inject up to 65 INSULIN LISPRO 63483433468 Ivone Bach UNIT/ML SOLN units daily in Shomn DRAMATIC ARTS HISTORIAN insulin pump PRAVACHOL 40 MG One tablet by / PRAVASTATIN 59405739521 Ivone Bach TABS mouth daily 07 SODIUM [facility] DRAMATIC ARTS HISTORIAN SPIRONOLACTONE 25 One tablet by SPIRONOLACTONE 29350608040 Dionte L MG TABS mouth daily Kelvin BRILINTA 90 MG One tablet by TICAGRELOR 42866920434 Dionte L TABS mouth twice Kelvin daily ASPIR-LOW 81 MG One tablet by ASPIRIN 60622832181 Dionte L TBEC mouth daily Kelvin ENALAPRIL MALEATE ENALAPRIL 25826978831 Dionte L TABS MALEATE TABS Kelvin LIPITOR 40 MG One tablet by ATORVASTATIN 99565335710 Ivone Bach TABS mouth daily CALCIUM Shomn DRAMATIC ARTS HISTORIAN LIPITOR 40 MG One tablet by ATORVASTATIN 53343193050 Dionte L TABS mouth daily CALCIUM Kelvin COQ10 CAPS COENZYME Q10 90166539290 Ivone Bach CAPS Shomn DRAMATIC ARTS HISTORIAN HUMALOG SOLN INSULIN LISPRO 58866804707 Dionte L SOLN Kelvin GLUCOSAMINE CAPS GLUCOSAMINE 69728430541 Ivone Bach SULFATE CAPS Shook DRAMATIC ARTS HISTORIAN Medications Administered No information available. Allergies, Adverse Reactions, Alerts Observed no known allergies at Results Date Name Value Unit Range Flag Description Office Visit: Transition of care PHQ-9 SCORE 2 Adult depression screening assessment PHQ2 SCORE 0 Adult depression screening assessment Office Visit: Follow up: Diabetes SMOK STATUS Never smoker Tobacco use [facility] Lab Report: Comprehensive Metabolic Profil ANION GAP [...] Pending order *PTH (Parathyroid Hormone) Pending order *[id number] Vitamin D, 1, 25- DiHydroxy Pending order [...]
--- OUTSIDE RECORDS SUMMARY | 2019-02-14 07:40 | XMS RPT_ITS | Clinical Summary ---
:1980 Author Organization [facility], [facility] Address [address] [place] [address] Phone Care Team Providers Name Role Phone Cheryl HOYOS, Ivone Bach Unavailable Conditions or Problems Problem Name Problem Code Onset Status Entry Provider Comment Standard Annotate Date Date Description Insulin pump 875503098 Active Ivone Bach Equipment status (SNOMED CT) 05/01 05/02 Shotim INSPECTOR ASSEMBLY finding Hx of urinary 684785615186 Active Ivone Bach History of tract 7 (SNOMED 01/08 01/08 Shook INSPECTOR ASSEMBLY urinary tract infection CT) infection Breast lump 07166083 Active Ivone Bach Breast lump (SNOMED CT) 01/08 01/08 Shook INSPECTOR ASSEMBLY Cataract 822844807 Active Ivone Bach Cataract (SNOMED CT) 01/08 01/08 Shook INSPECTOR ASSEMBLY Hyperlipidemi 53320946 Active Ivone Bach Hyperlipidemia a (SNOMED CT) 01/08 01/08 Shook INSPECTOR ASSEMBLY Hx of cardiac 629223957 Active Ivone Bach History of stents (SNOMED CT) 01/08 01/08 Cheryl INSPECTOR ASSEMBLY placement of stent for coronary artery disease Diabetes 808961344084 Active Ivone Bach Diabetes mellitus, 02 (SNOMED 01/08 01/08 Shook INSPECTOR ASSEMBLY mellitus type [address] without without retinopathy retinopathy Medications Medication Instructions Start Stop Generic Name NDC Provider Date Date REBECCA CONTOUR test BG level / GLUCOSE BLOOD 22091460219 Ivone Bach NEXT TEST STRP up to 5 times 29 Shotim INSPECTOR ASSEMBLY daily TEGADERM FILM apply over 68348620913 Ivone Bach 2-3/8X2-3/4 insulin pump 28 DRESSINGS Cheryl INSPECTOR ASSEMBLY transmitter q 3 days HUMALOG 100 Up to 65 units INSULIN LISPRO 00620353865 Ivone Bach UNIT/ML SOCT daily in [facility] INSPECTOR ASSEMBLY insulin pump ENALAPRIL MALEATE Take one daily ENALAPRIL 03231647214 Ivone J 2.5 MG TABS MALEATE [facility] INSPECTOR ASSEMBLY GLUCAGON Use as directed GLUCAGON (RDNA) 42257307163 Ivone Bach EMERGENCY 1 MG [facility] INSPECTOR ASSEMBLY KIT ONE TOUCH ULTRA Check BG 6 TOUCH ULTRA Ivone J TEST STRIPS times daily 29 TEST STRIPS [facility] INSPECTOR ASSEMBLY HUMALOG 100 Up to 65 units INSULIN LISPRO 73055134568 Ivone Bach UNIT/ML SOCT daily in pump. [facility] INSPECTOR ASSEMBLY HUMALOG SOLN INSULIN LISPRO 84745529959 Dionte L SOLN Kelvin LIPITOR 40 MG One tablet by ATORVASTATIN 02867849051 Dionte L TABS mouth daily CALCIUM Kelvin LIPITOR 40 MG One tablet by ATORVASTATIN 42045537523 Ivone J TABS mouth daily / CALCIUM [facility] INSPECTOR ASSEMBLY ENALAPRIL MALEATE ENALAPRIL 56425821349 Dionte Deepa TABS MALEATE TABS Kelvin SPIRONOLACTONE 25 One tablet by SPIRONOLACTONE 36213841657 Dionte L MG TABS mouth daily Kelvin BRILINTA 90 MG One tablet by TICAGRELOR 22487285440 Dionte L TABS mouth twice Kelvin daily ASPIR-LOW 81 MG One tablet by ASPIRIN 30101312453 Dionte L TBEC mouth daily Kelvin BIOTIN 1000 MCG One tablet by BIOTIN 54479279509 Dionte Deepa TABS mouth daily Kelvin HUMALOG 100 Inject up to 65 INSULIN LISPRO 95427340126 Ivone Bach UNIT/ML SOLN units daily in [facility] INSPECTOR ASSEMBLY insulin pump PRAVACHOL 40 MG One tablet by / PRAVASTATIN 87629500877 Ivone J TABS mouth daily SODIUM [facility] INSPECTOR ASSEMBLY Medications Administered No information available. Allergies, Adverse Reactions, Alerts Observed no known allergies at Results Date Name Value Unit Range Flag Description Office Visit: Transition of care PHQ-9 SCORE 2 Adult depression screening assessment PHQ2 SCORE 0 Adult depression screening assessment Office Visit: Follow up: Diabetes MEDS REVIEW Done Documentation of current medications (procedure) SMOK STATUS Never smoker Tobacco use [facility] Lab Report: Comprehensive Metabolic Profil ANION [...] % 4.2-6.3 H Hemoglobin A1c/Hemoglobin.total in Blood Plan of Care Type Date Detail Appointment 04:30 PM Ivone Luna INSPECTOR ASSEMBLY, [address], [address], [place], [address], Pending order *HgA1C Pending order *CMP Complete [...]
--- OUTSIDE RECORDS SUMMARY | 2019-02-14 07:40 | XMS RPT_ITS | Clinical Summary ---
:1980 Author Organization [facility] Address [address] [place] [address] Phone Care Team Providers Name Role Phone Freda Marshall LPN Unavailable Unavailable Conditions or Problems Problem Name Problem Code Onset Status Entry Provider Comment Standard Annotate Date Date Description Insulin pump 901258914 Active Ivone Bach Equipment status (SNOMED CT) 05/01 05/02 Shook STAFFING ANALYST finding Hx of urinary 299419528002 Active Ivone Bach History of tract 7 (SNOMED 01/08 01/08 Shook STAFFING ANALYST urinary tract infection CT) infection Breast lump 17179990 Active Ivone Bach Breast lump (SNOMED CT) 01/08 01/08 Shook STAFFING ANALYST Cataract 886437836 Active Ivone Bach Cataract (SNOMED CT) 01/08 01/08 Shook STAFFING ANALYST Hyperlipidemi 77631401 Active Ivone Bach Hyperlipidemia a (SNOMED CT) 01/08 01/08 Shook STAFFING ANALYST Hx of cardiac 007942357 Active Ivone Bach History of stents (SNOMED CT) 01/08 01/08 Shook STAFFING ANALYST placement of stent for coronary artery disease Diabetes 167989566785 Active Ivone Bach Diabetes mellitus, 02 (SNOMED 01/08 01/08 Shook STAFFING ANALYST mellitus type [address] without without retinopathy retinopathy Medications Medication Instructions Start Stop Generic Name NDC Provider Date Date TEGADERM FILM apply over [id number] Ivone Bach 2-38X2-3/ insulin pump 28 DRESSINGS Shook STAFFING ANALYST MISC transmitter q 3 days ENALAPRIL MALEATE Take one daily ENALAPRIL 76086924813 Ivone Bach 2.5 MG TABS MALEATE Shook STAFFING ANALYST HUMALOG 100 Up to 65 units INSULIN LISPRO 65890342889 Ivone J UNIT/ML SOCT daily in [employer] STAFFING ANALYST insulin pump ONE TOUCH ULTRA Check BG 6 TOUCH ULTRA Ivone J TEST STRIPS times daily 29 TEST STRIPS Shook STAFFING ANALYST GLUCAGON Use as directed GLUCAGON (RDNA) 39264808454 Ivone Bach EMERGENCY 1 MG Shook STAFFING ANALYST KIT HUMALOG 100 Up to 65 units INSULIN LISPRO 36244744456 Ivone J UNIT/ML SOCT daily in pump. Shook STAFFING ANALYST HUMALOG 100 Inject up to 65 INSULIN LISPRO 38240594771 Ivone J UNIT/ML SOLN units daily in Shoil STAFFING ANALYST insulin pump PRAVACHOL 40 MG One tablet by / PRAVASTATIN 25257008301 Ivone J TABS mouth daily 07 SODIUM Shook STAFFING ANALYST HUMALOG SOLN INSULIN LISPRO 81829276226 Dionte [place] SOLN Kelvin LIPITOR 40 MG One tablet by ATORVASTATIN 72079499140 Dionte L TABS mouth daily CALCIUM Kelvin LIPITOR 40 MG One tablet by ATORVASTATIN 61945711656 Ivone J TABS mouth daily /07 CALCIUM Shoil STAFFING ANALYST ENALAPRIL MALEATE ENALAPRIL 84172668581 Dionte Deepa TABS MALEATE TABS Kelvin SPIRONOLACTONE 25 One tablet by SPIRONOLACTONE 51584751460 Dionte L MG TABS mouth daily Kelvin BRILINTA 90 MG One tablet by TICAGRELOR 91848281759 Dionte Deepa TABS mouth twice Kelvin daily ASPIR-LOW 81 MG One tablet by ASPIRIN 65510969168 Dionte L TBEC mouth daily Kelvin BIOTIN 1000 MCG One tablet by BIOTIN 09373103883 Dionte L TABS mouth daily Kelvin Medications [...] (procedure) SMOK STATUS Never smoker Tobacco use [facility] Plan of Care Type Date Detail [...]
--- OUTSIDE RECORDS SUMMARY | 2019-02-14 07:41 | XMS RPT_ITS ---
:1980 Author Organization OH[facility] Care Team Providers Name Role Phone JAY HENDRICKSON (BALDEMAR) Attending Unavailable WAQAR RUEDA Referring Unavailable MIKEY SZYMANSKI Referring Unavailable CAROLINA, ANITRA (DRYWALL INSTALLER) Referring Unavailable CAROLINA, ANITRA (DRYWALL INSTALLER) Attending Unavailable [place], ANITRA (DRYWALL INSTALLER) Attending Unavailable [place], ANITRA (DRYWALL INSTALLER) Referring Unavailable CAROLINA, ANITRA (DRYWALL INSTALLER) Referring Unavailable MIKEY SZYMANSKI Referring Unavailable MIKEY SZYMANSKI Attending Unavailable MIKEY SZYMANSKI Referring Unavailable Waqar Jaimes Attending Unavailable Waqar Jaimes Referring Unavailable Waqar Rueda RECORD RETRIEVAL SPECIALIST-C Primary Care Unavailable DOCTOR, OUT OF TOWN Attending Unavailable WAQAR RUEDA Primary Care Unavailable WAQAR RUEDA CNP Attending Unavailable WAQAR RUEDA CNP Primary Care Unavailable MIKEY SZYMANSKI Attending Unavailable MIKEY SZYMANSKI Referring Unavailable PROBLEMS PROBLEMS DATE TYPE CONDITION / CODE ATTENDING STATUS SOURCE 08/09/2018 Active Nonscarring hair NA Active [place] loss, unspecified / Clinic Main L65.9(ICD-10) [place] Repository 08/02/2018 Active Other hair color and NA Active [place] hair shaft Clinic Main abnormalities / [place] L67.8(ICD-10) Repository 05/20/2018 Active Atherosclerotic heart NA Active [place] disease [place] [facility] Main coronary artery [place] without angina Repository pectoris / I25.10(ICD-10) PROCEDURES PROCEDURES No Procedure Records FoundRESULTS RESULTS OPERATIVE REPORT - Observed: 12/15/2018 Status: F Source: [facility] 4:08 PM [facility] REPOSITORY [facility] Medical Records Department [address] [place] [address] Operative Report - Endoscopy MR#: [id number] Acct: [id number] Name: MINDY JOSHUA Rep #: [id number] : 1980 38 From: Waqar Jaimes MD PCP: Waqar Rueda NP-C Status: [facility] Patient Name: Mindy Joshua Procedure Date: 12/10/2018 12:33 PM Date of : 1980 Age: 38 Procedure: Colonoscopy Indications: Screening in patient at increased risk: Family history of 1st-degree relative with colorectal cancer Providers: Waqar Jaimes MD Referring MD: Waqar Rueda Medicines: Monitored Anesthesia Care Patient Profile: This is a 38 year old female. Refer to note in patient chart for documentation of history and physical. Last Colonoscopy: 5 years ago. Complications: No immediate complications. Procedure: Pre-Anesthesia Assessment: - Prior to the procedure, a History and Physical was performed, and patient medications and allergies were reviewed. The patient is competent. The risks and benefits of the procedure and the sedation options and risks were discussed with the patient. All questions were answered and informed consent was obtained. Patient identification and proposed procedure were verified by the physician, the nurse and the welding machine operator/tender in the procedure room. Mental Status Examination: alert and oriented. Airway Examination: normal oropharyngeal airway and neck mobility. Respiratory Examination: clear to auscultation. CV Examination: normal. Prophylactic Antibiotics: The patient does not require prophylactic antibiotics. Prior Anticoagulants: The patient has taken anticoagulant medication, last dose was 1 day prior to procedure. ASA Grade Assessment: III - A patient with severe systemic disease. After reviewing the risks and benefits, the patient was deemed in satisfactory condition to undergo the procedure. The anesthesia plan was to use moderate sedation / analgesia (conscious sedation). Immediately prior to administration of medications, the patient was re-assessed for adequacy to receive sedatives. The heart rate, respiratory rate, oxygen saturations, blood pressure, adequacy of pulmonary ventilation, and response to care were monitored throughout the procedure. The physical status of the patient was re-assessed after the procedure. After I obtained informed consent, the scope was passed under direct vision. Throughout the procedure, the patient's blood pressure, pulse, and oxygen saturations were monitored continuously. The pediatric colonoscope was introduced through the anus and advanced to the cecum, identified by the appendiceal orifice, ileocecal valve and palpation. The colonoscopy was performed without difficulty. The patient tolerated the procedure well. The quality of the bowel preparation was good. Scope In: 1:11:05 PM Scope Withdrawal Time 0 hours 3 minutes 52 seconds Scope Out: 1:26:21 PM Total Procedure Duration Time 0 hours 15 minutes 16 seconds Findings: The perianal and digital rectal examinations were normal. The entire examined colon appeared normal on direct and retroflexion views. Impression: - The entire examined colon is normal on direct and retroflexion views. - No specimens collected. Recommendation: - Discharge patient to home. - Resume previous diet. - Continue present medications. - Repeat colonoscopy in 5 years for screening purposes. Procedure Code(s): --- Professional --- 08636, Colonoscopy, flexible; diagnostic, including collection of specimen(s) by brushing or washing, when performed (separate procedure) CPT copyright 2017 [employer]. All rights reserved. The codes documented in this report are preliminary and upon data coder operator review may be revised to meet current compliance requirements. Waqar Jaimes MD 12/10/2018 1:36:23 PM This report has been signed electronically. Number of Addenda: 0 Note Initiated On: 12/10/2018 12:33 PM 12/10/18 1452 Date Waqar Jaimes MD Cosigner Signature: Date (if indicated) CC: RECORD RETRIEVAL SPECIALIST-C Waqar Rueda; Waqar Jaimes MD Date Dictated: 12/10/18 1233 Date Transcribed: Telemetry Tech: RG Signed PROGRESS Observed: 12/10/2018 Status: COMPLETED Source: [place] 7:20 PM [facility] RE[facility]ITORY [facility] ID: [id number] Author: Waqar Jaimes Service: (none) Author Type: Physician Type: Progress Notes Filed: 12/10/2018 7:24 PM Note Text: OPERATIVE NOTATION FOR [facility] SURGICAL PROCEDURE. December 10, 2018 Mindy Courtneyr 1980 [id number] female PROCEDURE: COLONOSCOPY - [id number] SURGEON: Jaspreet Jaimes M.D. FACS MOLD MECHANIC: None DEPT: [facility] PROVIDER: [id number] Jaimes MD POS: [id number] DIAGNOSIS: (Z80.0) Family history of colon cancer (primary encounter diagnosis) (Z12.11) Encounter for screening for malignant neoplasm of colon ASA CLASS: 2 - mild FINDINGS: normal 5 year follow up COMPLICATIONS: None PMHx - PAST MEDICAL HISTORY Diagnosis Date - Hypercholesteremia - AK (myocardial infarction) (HCC) 02/2016 - Type I (juvenile type) diabetes mellitus without mention of complication, uncontrolled since age 11 COMORBIDITIES - AK Post Op Occurrences - None Wound Classification - Clean Contaminated Operative note dictated in the [facility] dictation system. Waqar Jaimes MD BEDSIDE GLUCOSE Collected: 12/10/2018 Status: F Source: [place] 11:55 AM [facility] REPOSITORY TYPE CODE TESTS RESULT OUT OF REFERENCE UNITS RANGE LAB L501.080 70-110 mg/dL High BEDSIDE GLU 113 Result Comment: MANAGEMENT OF PATIENT CARE PER NURSING PROTOCOL Performed By: #### L501.080 #### [facility] Laboratory Point of Care [address] [place] [address] HISTORY AND PHYSICAL Observed: 12/10/2018 Status: F Source: [place] EXAM 6:52 AM [facility] REPOSITORY [facility] Medical Records Department [address] [place] [address] History and Physical 12/10/18 0651 MR#: [id number] Acct: [id number] Name: MINDY JOSHUA Rep #: [id number] : 1980 38 From: Waqar Jaimes MD PCP: Waqar Rueda RECORD RETRIEVAL SPECIALIST-C Status: [facility] [place] Location: EN History and Physical Date of Admission: 12/10/18 HISTORY AND PHYSICAL Mindy Joshua 1980 REFERRING PHYSICIAN: Waqar Rueda, DRYWALL INSTALLER CHIEF COMPLAINT: Consult (colonoscopy) HPI: The patient is a 38 year old female referred for endoscopy. Mindy notes a family history of colon cancer-father was diagnosed and from colon cancer in his 50s. Patient had a prior colonoscopy by Dr. Angel in 2010 for evaluation of rectal bleeding. He had recommended a repeat colonoscopy in 5 years due to her family history. Patient denies any changes in bowel habits, blood in stools, dark stools or other concerns currently. The patient notes no history of upper GI complaints. Patient's past medical history is significant for hypercholesterolemia, coronary artery disease, myocardial infarction, s/p drug-eluting LAD stent placement, type I diabetes mellitus with insulin pump. Patient follows with ERIC Farooq in primary care and with Dr. Szymanski in cardiology. Her most recent cardiology note from 05/20/[address] Szymanski is reviewed, as well as her stress test from July 2018. She denies any chest pain, shortness of breath or recent hospitalizations. c PAST MEDICAL HISTORY c PAST MEDICAL HISTORY Diagnosis Date Hypercholesteremia AK (myocardial infarction) (H CC) 02/2016 Type I (juvenile type) diabetes mellitus without mention of complication, uncont rolledsince age 11 c PAST SURGICAL HISTORY c PAST SURGICAL HISTORY Procedure Laterality Date DELIVERY ONLY 2004, 2006 C- section, low cervical COLONOSCOP W/ OR W/O RUST SPEC 06/04/08 COLONOSCOP W/ OR W/O RUST SPEC 10/31/2011 Colonoscopy HEART CATHETERIZATION 03/16/2016 with stent placement MANIPULATION-SHOULDER DISLOCATION W/ANESTH PAST SURGICAL HISTORY OF [place] PAST SURGICAL HISTORY OF Adnoids Removed RECONSTRUCT PROX HUMERAL IMPLANT Rig ht 10/2016 Arthroplasty, shoulder c CURRENT MEDICATIONS c Current Outpatient Prescriptions: BRILINTA 90 mg tablet Take 1 tablet by mouth twice daily. aspirin 81 mg chewable tablet Take 1 tablet by mouth once daily. metoprolol succinate ER (TO PROL XL)25 mg 24 hr tablet Take 1 tablet by mouth once daily. rosuvastatin (CRESTOR) 20 mg tab let Take 1 tablet by mouth daily at bedtime. nitroglycerin sublingual (NITROQUICK) 0.4 mg SL t ablet Dissolve 1 tablet under the tongue as needed. FOR CHEST PAIN. IF NO RELIEF CALL 911 spir onolactone (ALDACTONE) 25 mg tablet Take 0.5 tablets by mouth once daily. triamcinolone aceton ella (KENALOG) 0.1 % cream Apply 1 application to affected area three times daily. Apply sparing ly to area for rash/itching. coenzyme Q10 (COENZYME Q-10) 100 mg cap capsule Take 100 mg by mo uth twice daily. juqwytbd-sunyvwqtisg-sjnl cb25 116-100 mg cap Take by mouth once daily. Mult ivitamin capsule Take 1 capsule by mouth once daily. ferrous sulfate 325 mg (65 mg iron) table t Take 325 mg by mouth daily with breakfast. enalapril (VASOTEC) 2.5 mg tablet Take half table t daily (Patient taking differently: Take 1/4 of a tablet daily) insulin lispro (HUMALOG) 100 unit/mL injection as directed in insulin pump up to 100 units daily blood sugar diagnostic (ON ETOUCH ULTRA TEST) test strip check blood sugars 6 times daily glucagon, human recombinant, (G LUCAGON EMERGENCY KIT, HUMAN,) 1 mg injection INJECT SUBCUTANEOUSLY. USE DIRECTED insulin glargine (LANTUS) 100 unit/mL injection Use as directed if pump fails up to 50 units/day BIOTI N ORAL Take by mouth. Insulin Syringe-Needle U-100 (BD INSULIN SYRINGE UFII) 1/2 mL 31 x 5/ 16 Syrg use as directed when pump fails peg 3350-Electrolytes (GOLYTELY) 236-22.74-6.74 -5.86 gram suspension Take 4,000 mL by mouth one time only for 1 dose. No current facility-admini stered medications for this visit. ALLERGIES: Lipitor [Atorvastatin Calcium] PERSONAL HISTORY: c SOCIAL HISTORY FAMILY HISTORY: c FAMILY HISTORY c FAMILY HISTORY Problem Relation Age of Onset Ischemic Heart Disease Mother Diabetes Mother Heart Maternal Grandfather Colon Cancer Father REVIEW OF SYMPTOMS: The review of systems data was entered by the nurse and reviewed by mn Nursing Notes: Lalitha Holman RN 10/30/2018 4:24 PM Signed REVIEW OF SYSTEMS: General: The patient notes fatigue, denies weight loss, denies weight gain, denies feeling hot, and notes feelings of cold. Eyes: The patient denies glaucoma, denies eye injury/surgery, wears glasses or contacts. Ear/Nose/Throat: The patient denies allergies, denies hayfever, denies ear infections, and denies bloody noses. Cardiovascular: The patient denies chest pain, notes heart disease, denies high blood pressure,notes cardiac stent, notes prior heart attack, denies irregular heart beat, notes high cholesterol, denies poor circulation, denies heart failure, other cardiac issues, denies claudication, denies cold feet, denies peripheral arterial stent. Respiratory: The patient denies tuberculosis, denies pneumonia, denies frequent cough, denies pulmonary embolism, denies shortness of breath, and denies coughing up blood. Gastrointestinal: The patient denies difficulty swallowing, denies acid reflux, denies ulcers, denies vomiting, denies jaundice/hepatitis, denies gallbladder problems, denies black or tarry stools, denies hemorrhoids, denies bleeding from rectum, denies diverticulitis, denies constipation, denies diarrhea, denies loss of stool control, and denies hernias. Kidney/Bladder: The patient denies kidney stones, denies urine infections, and denies bloody urine. Skin: The patient denies a history of skin cancer, denies bleeding/changing moles, and denies a history of skin rash. Neurologic: The patient denies a history of epilepsy/convulsions, denies headaches, denies head/spinal injuries, and denies stroke/TIA. Psychiatric: The patient denies psychiatric medications, denies depression, and denies voices, denies substance abuse. Endocrine: The patient denies thyroid disorders, notes diabetes, and denies hormonal problems. Hematologic: The patient denies a history of bruising, denies bleeding, and denies anemia, denies blood clots. Infections: The patient denies a history of measles and mumps, denies rheumatic fever, and denies sexually transmitted diseases. Musculoskeletal: The patient denies back pain/injury, denies back problems, denies sciatica, denies knee/foot trouble, denies arthritis, or denies gout. When was patient's last Mammogram screening? 08/2018 Last Colonoscopy: 10/2011 Lalitha Holman RN I have confirmed and edited as necessary, the PFSH and ROS obtained by others. PHYSICAL EXAMINATION: General: The patient is 38 year old female, well nourished, well hydrated in no acute distress. The patient is oriented to time, place, and person. VITALS: Blood pressure 96/60, pulse 66, weight 59.4 kg (131 lb). Body mass index is 22.14 kg/m . HEENT: Normal cephalic, ataumatic, pupils are equally round, sclera are anicteric, mucous membranes are moist, oropharynx is clear. Neck has no masses, asymmetry or lymphadenopathy. Respiratory: Clear to auscultation and percussion. Normal respiratory excursion and pattern. Cardiac: Examination is regular rate and rhythm. Normal S1/S2 Abdominal exam: Soft, nontender, with no palpable masses. No hepatosplenomegaly. No palpable hernias. Rectal exam: exam deferred Extremities: no clubbing, cyanosis or edema. No adenopathy. Other: LABORATORY VALUES: As Noted RADIOLOGIC STUDIES: As Noted Assessment IMPRESSION: encounter for high-risk screening colonoscopy due to family history of colon cancer in a first-degree relative PLAN: I have reviewed my findings with Dr. Jaimes. Dr. Jaimes has also reviewed patient's recent cardiac testing. We will plan for screening colonoscopy with Monitored Anesthetic Care. We discussed the risks and benefits of the planned endoscopy. I have informed the patient that complications can occur including failure to complete the endoscopy and perforation. The patient had the opportunity to ask questions concerning the planned endoscopy. My staff has also explained the procedure to the patient in understandable terms and has given the patient printed material concerning the procedure. The patient freely consents to surgery. I plan to use golytely bowel preparation for endoscopy Patient to remain on her Brilinta and aspirin for the procedure Patient has insulin pump, states she is comfortable managing adjustments which will be required when she is on clear liquids prior to procedure I plan for monitored anesthetic care. Patient will need PAT Diagnoses: (Z12.11) Encounter for screening for malignant neoplasm of colon (primary encounter diagnosis) (Z80.0) Family history of colon cancer My findings have been communicated to Dr. Rueda via shared medical record. This note will be forwarded to ERIC Abel. Return to Clinic: The patient is instructed to follow-up with me 1 week post operatively. Jay Hendrickson PA-C 12/10/18 0652 <Electronically signed by Waqar Jaimes MD> Date Waqar Jaimes MD Cosigner Signature: Date (if applicable) CC: RECORD RETRIEVAL SPECIALIST-C Waqar Rueda; Waqar Jaimes MD Signed CNOP Observed: 12/10/2018 Status: COMPLETED Source: [place] 12:[address] [facility] REPOSITORY Operative Note (Enc) (GENSWS) Progress Notes: Waqar Jaimes MD 12/10/2018 7:24 PM Signed OPERATIVE NOTATION FOR [facility] SURGICAL PROCEDURE. December 10, 2018 Mindy Bach Josiane 1980 [id number] female PROCEDURE: COLONOSCOPY - [id number] SURGEON: Jaspreet Jaimes M.D. FACS MOLD MECHANIC: None DEPT: [facility] PROVIDER: [id number] Jaimes MD POS: [id number] DIAGNOSIS: (Z80.0) Family history of colon cancer (primary encounter diagnosis) (Z12.11) Encounter for screening for malignant neoplasm of colon ASA CLASS: 2 - mild FINDINGS: normal 5 year follow up COMPLICATIONS: None PMHx - PAST MEDICAL HISTORY Diagnosis Date - Hypercholesteremia - AK (myocardial infarction) (HCC) 02/2016 - Type I (juvenile type) diabetes mellitus without mention of complication, uncontrolled since age 11 COMORBIDITIES - AK Post Op Occurrences - None Wound Classification - Clean Contaminated Operative note dictated in the [facility] dictation system. Waqar Jaimes MD Encounter Status:Closed by WAQAR JAIMES MD on 12/10/18 PROGRESS Observed: 10/30/2018 Status: COMPLETED Source: [place] 5:23 PM [facility] [place] REPOSITORY [facility] ID: [id number] Author: Jay Hendrickson (Pa) Service: (none) Author Type: Physician Costume Seamstress Type: Progress Notes Filed: 10/30/2018 6:19 PM Note Text: HISTORY AND PHYSICAL Mindy Courtneyr 1980 REFERRING PHYSICIAN: Waqar Rueda CNP CHIEF COMPLAINT: Consult (colonoscopy) HPI: The patient is a 38 year old female referred for endoscopy. Mindy notes a family history of colon cancer-father was diagnosed and from colon cancer in his 50s. Patient had a prior colonoscopy by Dr. Angel in 2010 for evaluation of rectal bleeding. He had recommended a repeat colonoscopy in 5 years due to her family history. Patient denies any changes in bowel habits, blood in stools, dark stools or other concerns currently. The patient notes no history of upper GI complaints. Patient's past medical history is significant for hypercholesterolemia, coronary artery disease, myocardial infarction, s/p drug-eluting LAD stent placement, type I diabetes mellitus with insulin pump. Patient follows with ERIC Farooq in primary care and with Dr. Szymanski in cardiology. Her most recent cardiology note from 05/20/[address] Szymanski is reviewed, as well as her stress test from July 2018. She denies any chest pain, shortness of breath or recent hospitalizations. PAST MEDICAL HISTORY Diagnosis Date - Hypercholesteremia - AK (myocardial infarction) (HCC) 02/2016 - Type I (juvenile type) diabetes mellitus without mention of complication, uncontrolled since age 11 PAST SURGICAL HISTORY Procedure Laterality Date - DELIVERY ONLY 2004, 2006 , low cervical - COLONOSCOP W/ OR W/O BRSH SPEC 06/04/08 - COLONOSCOP W/ OR W/O BRS SPEC 10/31/2011 Colonoscopy - HEART CATHETERIZATION 03/16/2016 with stent placement - MANIPULATION-SHOULDER DISLOCATION W/ANESTH - PAST SURGICAL HISTORY OF [place] - PAST SURGICAL HISTORY OF Adnoids Removed - RECONSTRUCT PROX HUMERAL IMPLANT Right 10/2016 Arthroplasty, shoulder Current Outpatient Prescriptions: BRILINTA 90 mg tablet Take 1 tablet by mouth twice daily. aspirin 81 mg chewable tablet Take 1 tablet by mouth once daily. metoprolol succinate ER (TOPROL XL) 25 mg 24 hr tablet Take 1 tablet by mouth once daily. rosuvastatin (CRESTOR) 20 mg tablet Take 1 tablet by mouth daily at bedtime. nitroglycerin sublingual (NITROQUICK) 0.4 mg SL tablet Dissolve 1 tablet under the tongue as needed. FOR CHEST PAIN. IF NO RELIEF CALL 911 spironolactone (ALDACTONE) 25 mg tablet Take 0.5 tablets by mouth once daily. triamcinolone acetonide (KENALOG) 0.1 % cream Apply 1 application to affected area three times daily. Apply sparingly to area for rash/itching. coenzyme Q10 (COENZYME Q-10) 100 mg cap capsule Take 100 mg by mouth twice daily. qjjlnlea-ukvjcuvltcm-ymyr cb25 116-100 mg cap Take by mouth once daily. Multivitamin capsule Take 1 capsule by mouth once daily. ferrous sulfate 325 mg (65 mg iron) tablet Take 325 mg by mouth daily with breakfast. enalapril (VASOTEC) 2.5 mg tablet Take half tablet daily (Patient taking differently: Take 1/4 of a tablet daily) insulin lispro (HUMALOG) 100 unit/mL injection as directed in insulin pump up to 100 units daily blood sugar diagnostic (GigsTimeTOUCH ULTRA TEST) test strip check blood sugars 6 times daily glucagon, human recombinant, (GLUCAGON EMERGENCY KIT, HUMAN,) 1 mg injection INJECT SUBCUTANEOUSLY. USE DIRECTED insulin glargine (LANTUS) 100 unit/mL injection Use as directed if pump fails up to 50 units/day BIOTIN ORAL Take by mouth. Insulin Syringe-Needle U-100 (BD INSULIN SYRINGE UF II) 1/2 mL 31 x 5/16 Syrg use as directed when pump fails peg 3350-Electrolytes (GOLYTELY) 236-22.74-6.74 -5.86 gram suspension Take 4,000 mL by mouth one time only for 1 dose. No current facility-administered medications for this visit. ALLERGIES: Lipitor [Atorvastatin Calcium] PERSONAL HISTORY: Social History Marital status: Spouse name: Kirstie Years of education: 18 Number of children: 2 Occupational History Occupation Employer Comment [employer]* Social History Main Topics Smoking status: Never Smoker Smokeless tobacco: Never Used Alcohol use: No Sexual activity: Yes Partners with: Male control/protection: Tubal Ligation FAMILY HISTORY: FAMILY HISTORY Problem Relation Age of Onset - Ischemic Heart Disease Mother - Diabetes Mother - Heart Maternal Grandfather - Colon Cancer Father REVIEW OF SYMPTOMS: The review of systems data was entered by the nurse and reviewed by me Nursing Notes: Lalitha Holman RN 10/30/2018 4:24 PM Signed REVIEW OF SYSTEMS: General: The patient notes fatigue, denies weight loss, denies weight gain, denies feeling hot, and notes feelings of cold. Eyes: The patient denies glaucoma, denies eye injury/surgery, wears glasses or contacts. Ear/Nose/Throat: The patient denies allergies, denies hayfever, denies ear infections, and denies bloody noses. Cardiovascular: The patient denies chest pain, notes heart disease, denies high blood pressure,notes cardiac stent, notes prior heart attack, denies irregular heart beat, notes high cholesterol, denies poor circulation, denies heart failure, other cardiac issues, denies claudication, denies cold feet, denies peripheral arterial stent. Respiratory: The patient denies tuberculosis, denies pneumonia, denies frequent cough, denies pulmonary embolism, denies shortness of breath, and denies coughing up blood. Gastrointestinal: The patient denies difficulty swallowing, denies acid reflux, denies ulcers, denies vomiting, denies jaundice/hepatitis, denies gallbladder problems, denies black or tarry stools, denies hemorrhoids, denies bleeding from rectum, denies diverticulitis, denies constipation, denies diarrhea, denies loss of stool control, and denies hernias. Kidney/Bladder: The patient denies kidney stones, denies urine infections, and denies bloody urine. Skin: The patient denies a history of skin cancer, denies bleeding/changing moles, and denies a history of skin rash. Neurologic: The patient denies a history of epilepsy/convulsions, denies headaches, denies head/spinal injuries, and denies stroke/TIA. Psychiatric: The patient denies psychiatric medications, denies depression, and denies voices, denies substance abuse. Endocrine: The patient denies thyroid disorders, notes diabetes, and denies hormonal problems. Hematologic: The patient denies a history of bruising, denies bleeding, and denies anemia, denies blood clots. Infections: The patient denies a history of measles and mumps, denies rheumatic fever, and denies sexually transmitted diseases. Musculoskeletal: The patient denies back pain/injury, denies back problems, denies sciatica, denies knee/foot trouble, denies arthritis, or denies gout. When was patient's last Mammogram screening? 08/2018 Last Colonoscopy: 10/2011 Lalitha Holman RN I have confirmed and edited as necessary, the PFSH and ROS obtained by others. PHYSICAL EXAMINATION: General: The patient is 38 year old female, well nourished, well hydrated in no acute distress. The patient is oriented to time, place, and person. VITALS: Blood pressure 96/60, pulse 66, weight 59.4 kg (131 lb). Body mass index is 22.14 kg/m?. HEENT: Normal cephalic, ataumatic, pupils are equally round, sclera are anicteric, mucous membranes are moist, oropharynx is clear. Neck has no masses, asymmetry or lymphadenopathy. Respiratory: Clear to auscultation and percussion. Normal respiratory excursion and pattern. Cardiac: Examination is regular rate and rhythm. Normal S1/S2 Abdominal exam: Soft, nontender, with no palpable masses. No hepatosplenomegaly. No palpable hernias. Rectal exam: exam deferred Extremities: no clubbing, cyanosis or edema. No adenopathy. Other: LABORATORY VALUES: As Noted RADIOLOGIC STUDIES: As Noted Assessment IMPRESSION: encounter for high-risk screening colonoscopy due to family history of colon cancer in a first-degree relative PLAN: I have reviewed my findings with Dr. Jaimes. Dr. Jaimes has also reviewed patient's recent cardiac testing. We will plan for screening colonoscopy with Monitored Anesthetic Care. We discussed the risks and benefits of the planned endoscopy. I have informed the patient that complications can occur including failure to complete the endoscopy and perforation. The patient had the opportunity to ask questions concerning the planned endoscopy. My staff has also explained the procedure to the patient in understandable terms and has given the patient printed material concerning the procedure. The patient freely consents to surgery. I plan to use golytely bowel preparation for endoscopy Patient to remain on her Brilinta and aspirin for the procedure Patient has insulin pump, states she is comfortable managing adjustments which will be required when she is on clear liquids prior to procedure I plan for monitored anesthetic care. Patient will need PAT Diagnoses: (Z12.11) Encounter for screening for malignant neoplasm of colon (primary encounter diagnosis) (Z80.0) Family history of colon cancer My findings have been communicated to Dr. Rueda via shared medical record. This note will be forwarded to ERIC Abel. Return to Clinic: The patient is instructed to follow-up with me 1 week post operatively. BENY Jimenez Observed: 10/30/2018 Status: COMPLETED Source: [place] 4:[address] [facility] REPOSITORY Office Visit (GENSWS) MINDY JOSHUA ([id number]) 1980 F Date Time Provider Department 10/30/18 4:00 PM JAY HENDRICKSON) GENAMYS During your visit today, we recorded the following information about you: Pulse Blood pressure Weight 66/minute 96/60 59.4 kg Lalitha Holman RN 10/30/2018 4:24 PM Signed REVIEW OF SYSTEMS: General: The patient notes fatigue, denies weight loss, denies weight gain, denies feeling hot, and notes feelings of cold. Eyes: The patient denies glaucoma, denies eye injury/surgery, wears glasses or contacts. Ear/Nose/Throat: The patient denies allergies, denies hayfever, denies ear infections, and denies bloody noses. Cardiovascular: The patient denies chest pain, notes heart disease, denies high blood pressure,notes cardiac stent, notes prior heart attack, denies irregular heart beat, notes high cholesterol, denies poor circulation, denies heart failure, other cardiac issues, denies claudication, denies cold feet, denies peripheral arterial stent. Respiratory: The patient denies tuberculosis, denies pneumonia, denies frequent cough, denies pulmonary embolism, denies shortness of breath, and denies coughing up blood. Gastrointestinal: The patient denies difficulty swallowing, denies acid reflux, denies ulcers, denies vomiting, denies jaundice/hepatitis, denies gallbladder problems, denies black or tarry stools, denies hemorrhoids, denies bleeding from rectum, denies diverticulitis, denies constipation, denies diarrhea, denies loss of stool control, and denies hernias. Kidney/Bladder: The patient denies kidney stones, denies urine infections, and denies bloody urine. Skin: The patient denies a history of skin cancer, denies bleeding/changing moles, and denies a history of skin rash. Neurologic: The patient denies a history of epilepsy/convulsions, denies headaches, denies head/spinal injuries, and denies stroke/TIA. Psychiatric: The patient denies psychiatric medications, denies depression, and denies voices, denies substance abuse. Endocrine: The patient denies thyroid disorders, notes diabetes, and denies hormonal problems. Hematologic: The patient denies a history of bruising, denies bleeding, and denies anemia, denies blood clots. Infections: The patient denies a history of measles and mumps, denies rheumatic fever, and denies sexually transmitted diseases. Musculoskeletal: The patient denies back pain/injury, denies back problems, denies sciatica, denies knee/foot trouble, denies arthritis, or denies gout. When was patient's last Mammogram screening? 08/2018 Last Colonoscopy: 10/2011 Lalitha Hendrickson PA-C 10/30/2018 6:19 PM Addendum HISTORY AND PHYSICAL Mindy Bach Josiane 1980 REFERRING PHYSICIAN: Waqar Rueda, [employer] INST[employer]ER CHIEF COMPLAINT: Consult (colonoscopy) HPI: The patient is a 38 year old female referred for endoscopy. Mindy notes a family history of colon cancer-father was diagnosed and from colon cancer in his 50s. Patient had a prior colonoscopy by Dr. Angel in 2010 for evaluation of rectal bleeding. He had recommended a repeat colonoscopy in 5 years due to her family history. Patient denies any changes in bowel habits, blood in stools, dark stools or other concerns currently. The patient notes no history of upper GI complaints. Patient's past medical history is significant for hypercholesterolemia, coronary artery disease, myocardial infarction, s/p drug-eluting LAD stent placement, type I diabetes mellitus with insulin pump. Patient follows with ERIC Farooq in primary care and with Dr. Szymanski in cardiology. Her most recent cardiology note from 05/20/[address] Szymanski is reviewed, as well as her stress test from July 2018. She denies any chest pain, shortness of breath or recent hospitalizations. PAST MEDICAL HISTORY Diagnosis Date - Hypercholesteremia - AK (myocardial infarction) (HCC) 02/2016 - Type I (juvenile type) diabetes mellitus without mention of complication, uncontrolled since age 11 PAST SURGICAL HISTORY Procedure Laterality Date - DELIVERY ONLY 2004, 2006 , low cervical - COLONOSCOP W/ OR W/O RUST SPEC 06/04/08 - COLONOSCOP W/ OR W/O RUST SPEC 10/31/2011 Colonoscopy - HEART CATHETERIZATION 03/16/2016 with stent placement - MANIPULATION-SHOULDER DISLOCATION W/ANESTH - PAST SURGICAL HISTORY OF 1999 [place] - PAST SURGICAL HISTORY OF Adnoids Removed - RECONSTRUCT PROX HUMERAL IMPLANT Right 10/2016 Arthroplasty, shoulder Current Outpatient Prescriptions: BRILINTA 90 mg tablet Take 1 tablet by mouth twice daily. aspirin 81 mg chewable tablet Take 1 tablet by mouth once daily. metoprolol succinate ER (TOPROL XL) 25 mg 24 hr tablet Take 1 tablet by mouth once daily. rosuvastatin (CRESTOR) 20 mg tablet Take 1 tablet by mouth daily at bedtime. nitroglycerin sublingual (NITROQUICK) 0.4 mg SL tablet Dissolve 1 tablet under the tongue as needed. FOR CHEST PAIN. IF NO RELIEF CALL 911 spironolactone (ALDACTONE) 25 mg tablet Take 0.5 tablets by mouth once daily. triamcinolone acetonide (KENALOG) 0.1 % cream Apply 1 application to affected area three times daily. Apply sparingly to area for rash/itching. coenzyme Q10 (COENZYME Q-10) 100 mg cap capsule Take 100 mg by mouth twice daily. kzqagrog-npdjonxydll-lrlp cb25 116-100 mg cap Take by mouth once daily. Multivitamin capsule Take 1 capsule by mouth once daily. ferrous sulfate 325 mg (65 mg iron) tablet Take 325 mg by mouth daily with breakfast. enalapril (VASOTEC) 2.5 mg tablet Take half tablet daily (Patient taking differently: Take 1/4 of a tablet daily) insulin lispro (HUMALOG) 100 unit/mL injection as directed in insulin pump up to 100 units daily blood sugar diagnostic (GigsTimeTOUCH ULTRA TEST) test strip check blood sugars 6 times daily glucagon, human recombinant, (GLUCAGON EMERGENCY KIT, HUMAN,) 1 mg injection INJECT SUBCUTANEOUSLY. USE DIRECTED insulin glargine (LANTUS) 100 unit/mL injection Use as directed if pump fails up to 50 units/day BIOTIN ORAL Take by mouth. Insulin Syringe-Needle U-100 (BD INSULIN SYRINGE UF II) 1/2 mL 31 x 5/16 Syrg use as directed when pump fails peg 3350-Electrolytes (GOLYTELY) 236-22.74-6.74 -5.86 gram suspension Take 4,000 mL by mouth one time only for 1 dose. No current facility-administered medications for this visit. ALLERGIES: Lipitor [Atorvastatin Calcium] PERSONAL HISTORY: Social History Marital status: Spouse name: Kirstie Years of education: 18 Number of children: 2 Occupational History Occupation Employer Comment [employer]* Social History Main Topics Smoking status: Never Smoker Smokeless tobacco: Never Used Alcohol use: No Sexual activity: Yes Partners with: Male control/protection: Tubal Ligation FAMILY HISTORY: FAMILY HISTORY Problem Relation Age of Onset - Ischemic Heart Disease Mother - Diabetes Mother - Heart Maternal Grandfather - Colon Cancer Father REVIEW OF SYMPTOMS: The review of systems data was entered by the nurse and reviewed by mn Nursing Notes: Lalitha Holman RN 10/30/2018 4:24 PM Signed REVIEW OF SYSTEMS: General: The patient notes fatigue, denies weight loss, denies weight gain, denies feeling hot, and notes feelings of cold. Eyes: The patient denies glaucoma, denies eye injury/surgery, wears glasses or contacts. Ear/Nose/Throat: The patient denies allergies, denies hayfever, denies ear infections, and denies bloody noses. Cardiovascular: The patient denies chest pain, notes heart disease, denies high blood pressure,notes cardiac stent, notes prior heart attack, denies irregular heart beat, notes high cholesterol, denies poor circulation, denies heart failure, other cardiac issues, denies claudication, denies cold feet, denies peripheral arterial stent. Respiratory: The patient denies tuberculosis, denies pneumonia, denies frequent cough, denies pulmonary embolism, denies shortness of breath, and denies coughing up blood. Gastrointestinal: The patient denies difficulty swallowing, denies acid reflux, denies ulcers, denies vomiting, denies jaundice/hepatitis, denies gallbladder problems, denies black or tarry stools, denies hemorrhoids, denies bleeding from rectum, denies diverticulitis, denies constipation, denies diarrhea, denies loss of stool control, and denies hernias. Kidney/Bladder: The patient denies kidney stones, denies urine infections, and denies bloody urine. Skin: The patient denies a history of skin cancer, denies bleeding/changing moles, and denies a history of skin rash. Neurologic: The patient denies a history of epilepsy/convulsions, denies headaches, denies head/spinal injuries, and denies stroke/TIA. Psychiatric: The patient denies psychiatric medications, denies depression, and denies voices, denies substance abuse. Endocrine: The patient denies thyroid disorders, notes diabetes, and denies hormonal problems. Hematologic: The patient denies a history of bruising, denies bleeding, and denies anemia, denies blood clots. Infections: The patient denies a history of measles and mumps, denies rheumatic fever, and denies sexually transmitted diseases. Musculoskeletal: The patient denies back pain/injury, denies back problems, denies sciatica, denies knee/foot trouble, denies arthritis, or denies gout. When was patient's last Mammogram screening? 08/2018 Last Colonoscopy: 10/2011 Lalitha Holman RN I have confirmed and edited as necessary, the PFSH and ROS obtained by others. PHYSICAL EXAMINATION: General: The patient is 38 year old female, well nourished, well hydrated in no acute distress. The patient is oriented to time, place, and person. VITALS: Blood pressure 96/60, pulse 66, weight 59.4 kg (131 lb). Body mass index is 22.14 kg/m?. HEENT: Normal cephalic, ataumatic, pupils are equally round, sclera are anicteric, mucous membranes are moist, oropharynx is clear. Neck has no masses, asymmetry or lymphadenopathy. Respiratory: Clear to auscultation and percussion. Normal respiratory excursion and pattern. Cardiac: Examination is regular rate and rhythm. Normal S1/S2 Abdominal exam: Soft, nontender, with no palpable masses. No hepatosplenomegaly. No palpable hernias. Rectal exam: exam deferred Extremities: no clubbing, cyanosis or edema. No adenopathy. Other: LABORATORY VALUES: As Noted RADIOLOGIC STUDIES: As Noted Assessment IMPRESSION: encounter for high-risk screening colonoscopy due to family history of colon cancer in a first-degree relative PLAN: I have reviewed my findings with Dr. Jaimes. Dr. Jaimes has also reviewed patient's recent cardiac testing. We will plan for screening colonoscopy with Monitored Anesthetic Care. We discussed the risks and benefits of the planned endoscopy. I have informed the patient that complications can occur including failure to complete the endoscopy and perforation. The patient had the opportunity to ask questions concerning the planned endoscopy. My staff has also explained the procedure to the patient in understandable terms and has given the patient printed material concerning the procedure. The patient freely consents to surgery. I plan to use golytely bowel preparation for endoscopy Patient to remain on her Brilinta and aspirin for the procedure Patient has insulin pump, states she is comfortable managing adjustments which will be required when she is on clear liquids prior to procedure I plan for monitored anesthetic care. Patient will need PAT Diagnoses: (Z12.11) Encounter for screening for malignant neoplasm of colon (primary encounter diagnosis) (Z80.0) Family history of colon cancer My findings have been communicated to Dr. Rueda via shared medical record. This note will be forwarded to ERIC Abel. Return to Clinic: The patient is instructed to follow-up with me 1 week post operatively. Jay Hendrickson PA-C Referring Provider: WAQAR RUEDA [[id number]] Allergies As of Date: 10/30/2018 Noted Allergy Reaction LIPITOR (ATORVASTATIN CALCIUM) 11/28/2017 17 - Myalgia Comments: High dose Date Reviewed: 10/30/2018 Reviewed by: Jay Hendrickson (Pa) - Fully Assessed Reason for Visit: Consult [173] Cmt: colonoscopy Primary Visit Diagnosis:Encounter for screening for malignant neoplasm of colon [Z12.11] Other Visit Diagnosis:Family history of colon cancer [Z80.0] Order(s):peg 3350-Electrolytes (GOLYTELY) 236-22.74-6.74 - 5.86 gram suspensionTake 4,000 mL by mouth one time only for 1 dose.Disp: 1 BottleRfl: 0 COLONOSCOPY, SCREENING, HIGH RISK [[id number]] Order #: [id number] FUTURE Prescriptions as of 10/30/2018 Sig: BRILINTA 90 MG TABLET Take 1 tablet by mouth twice * ASPIRIN 81 MG CHEWABLE TABLET Take 1 tablet by mouth once d* METOPROLOL SUCCINATE ER 25 MG* Take 1 tablet by mouth once d* ROSUVASTATIN 20 MG TABLET Take 1 tablet by mouth daily * NITROGLYCERIN 0.4 MG SUBLINGU* Dissolve 1 tablet under the t* SPIRONOLACTONE 25 MG TABLET Take 0.5 tablets by mouth onc* TRIAMCINOLONE ACETONIDE 0.1 %* Apply 1 application to affect* COENZYME Q10 100 MG CAPSULE Take 100 mg by mouth twice da* GLUCOSAMINE 116 MG-CHONDROITI* Take by mouth once daily. MULTIVITAMIN CAPSULE Take 1 capsule by mouth once * FERROUS SULFATE 325 MG (65 MG* Take 325 mg by mouth daily wi* ENALAPRIL MALEATE 2.5 MG TABL* Take half tablet daily Patient taking differently: Take 1/4 of a tablet daily INSULIN LISPRO (U-100) 100 UN* as directed in insulin pump u* BLOOD SUGAR DIAGNOSTIC STRIPS check blood sugars 6 times da* GLUCAGON (HUMAN RECOMBINANT) * INJECT SUBCUTANEOUSLY. USE A* INSULIN GLARGINE (U-100) 100 * Use as directed if pump fails* * BIOTIN ORAL Take by mouth. * INSULIN SYRINGE U-100 WITH NE* use as directed when pump amanda* PEG 3350-ELECTROLYTES 236 GRA* Take 4,000 mL by mouth one ti* Problem List As Of Date 10/30/2018 Noted Resolved Uncontrolled type 1 diabetes mellitus with pauline*INVALID FOR* More... 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 Eyes: The patient denies glaucoma, denies eye injury/surgery, wears glasses or contacts. Ear/Nose/Throat: The patient denies allergies, denies hayfever, denies ear infections, and denies bloody noses. Cardiovascular: The patient denies chest pain, notes heart disease, denies high blood pressure,notes cardiac stent, notes prior heart attack, denies irregular heart beat, notes high cholesterol, denies poor circulation, denies heart failure, other cardiac issues, denies claudication, denies cold feet, denies peripheral arterial stent. Respiratory: The patient denies tuberculosis, denies pneumonia, denies frequent cough, denies pulmonary embolism, denies shortness of breath, and denies coughing up blood. Gastrointestinal: The patient denies difficulty swallowing, denies acid reflux, denies ulcers, denies vomiting, denies jaundice/hepatitis, denies gallbladder problems, denies black or tarry stools, denies hemorrhoids, denies bleeding from rectum, denies diverticulitis, denies constipation, denies diarrhea, denies loss of stool control, and denies hernias. Kidney/Bladder: The patient denies kidney stones, denies urine infections, and denies bloody urine. Skin: The patient denies a history of skin cancer, denies bleeding/changing moles, and denies a history of skin rash. Neurologic: The patient denies a history of epilepsy/convulsions, denies headaches, denies head/spinal injuries, and denies stroke/TIA. Psychiatric: The patient denies psychiatric medications, denies depression, and denies voices, denies substance abuse. Endocrine: The patient denies thyroid disorders, notes diabetes, and denies hormonal problems. Hematologic: The patient denies a history of bruising, denies bleeding, and denies anemia, denies blood clots. Infections: The patient denies a history of measles and mumps, denies rheumatic fever, and denies sexually transmitted diseases. Musculoskeletal: The patient denies back pain/injury, denies back problems, denies sciatica, denies knee/foot trouble, denies arthritis, or denies gout. When was patient's last Mammogram screening? 08/2018 Last Colonoscopy: 10/2011 Lalitha Holman RN Prescriptions ordered this encounter Disp Refills Start End PEG 3350-ELECTROLYTES 236 GRAM-22.74* 1 Tristin* 0 10/30/2018 10/30/2018 Route: ORAL Sig: Take 4,000 mL by mouth one time only for 1 dose. Follow-up and Disposition History Recorded Encounter Status:Closed by JAY HENDRICKSON PA-C on 10/30/18 PROGRESS Observed: 08/19/2018 Status: COMPLETED Source: [place] 10:[address] [facility] REPOSITORY HNO ID: [id number] Author: Maria L Galeas (Rcep) Service: (none) Author Type: Sexual Abuse Counsellor Type: Progress Notes Filed: 08/19/2018 10:18 AM Note Text: Preliminary report complete; results under cardiac tab. AUSTYN Egan CNNURSE Observed: 08/19/2018 Status: COMPLETED Source: [place] 9:[address] [facility] REPOSITORY Nurse Visit (CAWSTR) MINDY JOSHUA ([id number]) 1980 F Date Time Provider Department 08/19/18 9:00 [facility] During your visit today, we recorded the following information about you: AUSTYN Egan 08/19/2018 10:18 AM Signed Preliminary report complete; results under cardiac tab. AUSTYN Egan Referring Provider: MIKEY SZYMANSKI [[id number]] Allergies As of Date: 08/19/2018 Noted Allergy Reaction LIPITOR (ATORVASTATIN CALCIUM) 11/28/2017 17 - Myalgia Comments: High dose Date Reviewed: 08/05/2018 Reviewed by: Anitra Shultz) [place] - Fully Assessed Primary Visit Diagnosis:ASHD (arteriosclerotic heart disease) [I25.10] Order(s):STRESS REGULAR W/TREAD [[id number]] Order #: [id number]: 1 FUTURE STRESS REGULAR W/TREAD [[id number]] Order #: [id number]: 1 COMPLETE ECG [] Order #: [id number]. #:[id number]--[id number]: 1 Prescriptions as of 08/19/2018 Sig: ASPIRIN 81 MG CHEWABLE TABLET Take 1 tablet by mouth once d* METOPROLOL SUCCINATE ER 25 MG* Take 1 tablet by mouth once d* ROSUVASTATIN 20 MG TABLET Take 1 tablet by mouth daily * NITROGLYCERIN 0.4 MG SUBLINGU* Dissolve 1 tablet under the t* SPIRONOLACTONE 25 MG TABLET Take 0.5 tablets by mouth onc* TRIAMCINOLONE ACETONIDE 0.1 %* Apply 1 application to affect* COENZYME Q10 100 MG CAPSULE Take 100 mg by mouth twice da* GLUCOSAMINE 116 MG-CHONDROITI* Take by mouth once daily. BRILINTA 90 MG TABLET Take 1 tablet by mouth twice * MULTIVITAMIN CAPSULE Take 1 capsule by mouth once * FERROUS SULFATE 325 MG (65 MG* Take 325 mg by mouth daily wi* ENALAPRIL MALEATE 2.5 MG TABL* Take half tablet daily Patient taking differently: Take 1/4 of a tablet daily INSULIN LISPRO (U-100) 100 UN* as directed in insulin pump u* BLOOD SUGAR DIAGNOSTIC STRIPS check blood sugars 6 times da* GLUCAGON (HUMAN RECOMBINANT) * INJECT SUBCUTANEOUSLY. USE A* INSULIN GLARGINE (U-100) 100 * Use as directed if pump fails* * BIOTIN ORAL Take by mouth. * INSULIN SYRINGE-NEEDLE U-100 * use as directed when pump amanda* Problem List As Of Date 08/19/2018 Noted Resolved Uncontrolled type 1 diabetes mellitus with pauline*INVALID FOR* More... 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 REPOSITORY TYPE CODE TESTS RESULT OUT OF RANGE REFERENCE UNITS LAB FT4 0.9-1.7 ng/dL Free T4 1.2 Performed By: #### FT4, T3, TGAB #### [facility] [address] [place], [place] [address] T3 Collected: 08/09/2018 Status: F Source: [facility] 9:25 AM [facility] REPOSITORY TYPE CODE TESTS RESULT OUT OF RANGE REFERENCE UNITS LAB T3 79-165 ng/dL T3 102 Performed By: #### FT4, T3, TGAB #### [facility] [employer] [address] [place], [place] [id number] THYROGLOBULIN AB Collected: 08/09/2018 Status: F Source: [place] 9:[address] [facility] REPOSITORY TYPE CODE TESTS RESULT OUT OF REFERENCE UNITS RANGE LAB TGAB <14.4 IU/mL Thyroglobulin Ab 4.1 Performed By: #### FT4, T3, TGAB #### [facility] [address] [place], [place] [address] PROGRESS Observed: 08/05/2018 Status: COMPLETED Source: [place] 3:[address] [facility] REPOSITORY HNO ID: [id number] Author: Anitra Shultz) [place] Service: (none) Author Type: Nurse Practitioner Type: Progress Notes Filed: 08/05/2018 5:03 PM Note Text: Mindy Joshua is a 37 year old female who presents for problem visit Hair loss and decrease libido over the past several months. HPI: pt is concerned about how much her hair is breaking off and how much she is losing and her decrease in libido and no desire for sex. The hair is breaking off at a faster rate then ever before and that is what has her concerned. PAST MEDICAL HISTORY Diagnosis Date - Hypercholesteremia - AK (myocardial infarction) (HCC) 02/2016 - Type I (juvenile type) diabetes mellitus without mention of complication, uncontrolled since age 11 PAST SURGICAL HISTORY Procedure Laterality Date - DELIVERY ONLY 2004, 2006 , low cervical - COLONOSCOP W/ OR W/O RUST SPEC 06/04/08 - COLONOSCOP W/ OR W/O RUST SPEC 10/31/2011 Colonoscopy - HEART CATHETERIZATION 03/16/2016 with stent placement - MANIPULATION-SHOULDER DISLOCATION W/ANESTH - PAST SURGICAL HISTORY OF 1999 [place] - PAST SURGICAL HISTORY OF Adnoids Removed - RECONSTRUCT PROX HUMERAL IMPLANT Right 10/2016 Arthroplasty, shoulder FAMILY HISTORY Problem Relation Age of Onset - Ischemic Heart Disease Mother - Diabetes Mother - Heart Maternal Grandfather - Colon Cancer Father Social History Marital status: Spouse name: Kirstie Years of education: 18 Number of children: 2 Occupational History 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 metoprolol succinate ER (TOPROL XL) 25 mg 24 hr tablet Take 1 tablet by mouth once daily. rosuvastatin (CRESTOR) 20 mg tablet Take 1 tablet by mouth daily at bedtime. nitroglycerin sublingual (NITROQUICK) 0.4 mg SL tablet Dissolve 1 tablet under the tongue as needed. FOR CHEST PAIN. IF NO RELIEF CALL 911 spironolactone (ALDACTONE) 25 mg tablet Take 0.5 tablets by mouth once daily. triamcinolone acetonide (KENALOG) 0.1 % cream Apply 1 application to affected area three times daily. Apply sparingly to area for rash/itching. coenzyme Q10 (COENZYME Q-10) 100 mg cap capsule Take 100 mg by mouth twice daily. kndqyxrv-gauifkaaijn-mmbq cb25 116-100 mg cap Take by mouth once daily. BRILINTA 90 mg tablet Take 1 tablet by mouth twice daily. Multivitamin capsule Take 1 capsule by mouth once daily. ferrous sulfate 325 mg (65 mg iron) tablet Take 325 mg by mouth daily with breakfast. enalapril (VASOTEC) 2.5 mg tablet Take half tablet daily (Patient taking differently: Take 1/4 of a tablet daily) insulin lispro (HUMALOG) 100 unit/mL injection as directed in insulin pump up to 100 units daily blood sugar diagnostic ([place] [employer] ULTRA TEST) test strip check blood sugars 6 times daily glucagon, human recombinant, (GLUCAGON EMERGENCY KIT, HUMAN,) 1 mg injection INJECT SUBCUTANEOUSLY. USE DIRECTED insulin glargine (LANTUS) 100 unit/mL injection Use as directed if pump fails up to 50 units/day BIOTIN ORAL Take by mouth. Insulin Syringe-Needle U-100 (BD INSULIN SYRINGE UF II) 1/2 mL 31 x 5/16 Syrg use as directed when pump fails No current facility-administered medications for this visit. Allergies As of Date: 08/05/2018 Allergen Noted Reaction LIPITOR [ATORVASTATIN CALCIUM] 11/28/2017 Myalgia Fully Assessed 05/20/2018 REVIEW OF SYSTEMS Abdomen: No bloating, early satiety, indigestion, or increased flatulence. No abdominal pain, nausea, vomiting, diarrhea, or constipation. Bladder: No dysuria, gross hematuria, urinary frequency, urinary urgency, or incontinence. Expanded ROS: N/A Allergies and current medication updated:Yes EXAM: There were no vitals taken for this visit. GENERAL: pleasant, female in no apparent distress HEENT: Normocephalic, atraumatic, mucus membranes moist, no lesions and hair is thin and brittle CHEST: Normal inspiratory effort NEURO: alert and oriented x3,exam grossly non-focal ASSESSMENT AND PLAN: Hair loss/breakage Decrease libido Reviewed current labs-gradual decrease in TSH over the past 6 yrs Type 1 diabetic and has seen ELLA Luna for the Past 20 yrs- is having trouble seeing her now before of insurance issues I will contact [facility] for more information Will call pt with further instructions More than 75% of visit spent counseling pt Anitra Figueroa APRN.DRYWALL INSTALLER CNOV Observed: 08/05/2018 Status: COMPLETED Source: [place] 3:50 PM [facility] REPOSITORY Office Visit (WOOB) MINDY JOSHUA ([id number]) 1980 F Date Time Provider Department 08/05/18 3:50 PM ANITRA FIGUEROA (DRYWALL INSTALLER) [place] During your visit today, we recorded the following information about you: Blood pressure Weight Last Period 58.5 kg 07/14/18 Anitra Figueroa APRN.DRYWALL INSTALLER 08/05/2018 5:03 PM Signed Mindy Joshua is a 37 year old female who presents for problem visit Hair loss and decrease libido over the past several months. HPI: pt is concerned about how much her hair is breaking off and how much she is losing and her decrease in libido and no desire for sex. The hair is breaking off at a faster rate then ever before and that is what has her concerned. PAST MEDICAL HISTORY Diagnosis Date - Hypercholesteremia - AK (myocardial infarction) (HCC) 02/2016 - Type I (juvenile type) diabetes mellitus without mention of complication, uncontrolled since age 11 PAST SURGICAL HISTORY Procedure Laterality Date - DELIVERY ONLY 2004, 2006 , low cervical - COLONOSCOP W/ OR W/O RUST SPEC 06/04/08 - COLONOSCOP W/ OR W/O RUST SPEC 10/31/2011 Colonoscopy - HEART CATHETERIZATION 03/16/2016 with stent placement - MANIPULATION-SHOULDER DISLOCATION W/ANESTH - PAST SURGICAL HISTORY OF 2000 [place] - PAST SURGICAL HISTORY OF Adnoids Removed - RECONSTRUCT PROX HUMERAL IMPLANT Right 10/2016 Arthroplasty, shoulder FAMILY HISTORY Problem Relation Age of Onset - Ischemic Heart Disease Mother - Diabetes Mother - Heart Maternal Grandfather - Colon Cancer Father Social History Marital status: Spouse name: Kirstie Years of education: 18 Number of children: 2 Occupational History 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 metoprolol succinate ER (TOPROL XL) 25 mg 24 hr tablet Take 1 tablet by mouth once daily. rosuvastatin (CRESTOR) 20 mg tablet Take 1 tablet by mouth daily at bedtime. nitroglycerin sublingual (NITROQUICK) 0.4 mg SL tablet Dissolve 1 tablet under the tongue as needed. FOR CHEST PAIN. IF NO RELIEF CALL 911 spironolactone (ALDACTONE) 25 mg tablet Take 0.5 tablets by mouth once daily. triamcinolone acetonide (KENALOG) 0.1 % cream Apply 1 application to affected area three times daily. Apply sparingly to area for rash/itching. coenzyme Q10 (COENZYME Q-10) 100 mg cap capsule Take 100 mg by mouth twice daily. qbrtgxxm-sdsdxrzxzzr-mhls cb25 116-100 mg cap Take by mouth once daily. BRILINTA 90 mg tablet Take 1 tablet by mouth twice daily. Multivitamin capsule Take 1 capsule by mouth once daily. ferrous sulfate 325 mg (65 mg iron) tablet Take 325 mg by mouth daily with breakfast. enalapril (VASOTEC) 2.5 mg tablet Take half tablet daily (Patient taking differently: Take 1/4 of a tablet daily) insulin lispro (HUMALOG) 100 unit/mL injection as directed in insulin pump up to 100 units daily blood sugar diagnostic (ONETOUCH ULTRA TEST) test strip check blood sugars 6 times daily glucagon, human recombinant, (GLUCAGON EMERGENCY KIT, HUMAN,) 1 mg injection INJECT SUBCUTANEOUSLY. USE DIRECTED insulin glargine (LANTUS) 100 unit/mL injection Use as directed if pump fails up to 50 units/day BIOTIN ORAL Take by mouth. Insulin Syringe-Needle U-100 (BD INSULIN SYRINGE UF II) 1/2 mL 31 x 5/16 Syrg use as directed when pump fails No current facility-administered medications for this visit. Allergies As of Date: 08/05/2018 Allergen Noted Reaction LIPITOR [ATORVASTATIN CALCIUM] 11/28/2017 Myalgia Fully Assessed 05/20/2018 REVIEW OF SYSTEMS Abdomen: No bloating, early satiety, indigestion, or increased flatulence. No abdominal pain, nausea, vomiting, diarrhea, or constipation. Bladder: No dysuria, gross hematuria, urinary frequency, urinary urgency, or incontinence. Expanded ROS: N/A Allergies and current medication updated:Yes EXAM: There were no vitals taken for this visit. GENERAL: pleasant, female in no apparent distress HEENT: Normocephalic, atraumatic, mucus membranes moist, no lesions and hair is thin and brittle CHEST: Normal inspiratory effort NEURO: alert and oriented x3,exam grossly non-focal ASSESSMENT AND PLAN: Hair loss/breakage Decrease libido Reviewed current labs-gradual decrease in TSH over the past 6 yrs Type 1 diabetic and has seen ELLA Luna for the Past 20 yrs- is having trouble seeing her now before of insurance issues I will contact [facility] for more information Will call pt with further instructions More than 75% of visit spent counseling pt Anitra Figueroa APRN.[place] Referring Provider: ANITRA FIGUEROA ([facility]) [[id number]] Allergies As of Date: 08/05/2018 Noted Allergy Reaction LIPITOR (ATORVASTATIN CALCIUM) 11/28/2017 17 - Myalgia Comments: High dose Date Reviewed: 08/05/2018 Reviewed by: Anitra ([facility]) [place] - Fully Assessed Reason for Visit: Discussion [813] Primary Visit Diagnosis:Hair loss [L65.9] Other Visit Diagnosis:Lack of libido [F52.0] Prescriptions as of 08/05/2018 Sig: ASPIRIN 81 MG CHEWABLE TABLET Take 1 tablet by mouth once d* METOPROLOL SUCCINATE ER 25 MG* Take 1 tablet by mouth once d* ROSUVASTATIN 20 MG TABLET Take 1 tablet by mouth daily * NITROGLYCERIN 0.4 MG SUBLINGU* Dissolve 1 tablet under the t* SPIRONOLACTONE 25 MG TABLET Take 0.5 tablets by mouth onc* COENZYME Q10 100 MG CAPSULE Take 100 mg by mouth twice da* GLUCOSAMINE 116 MG-CHONDROITI* Take by mouth once daily. BRILINTA 90 MG TABLET Take 1 tablet by mouth twice * MULTIVITAMIN CAPSULE Take 1 capsule by mouth once * FERROUS SULFATE 325 MG (65 MG* Take 325 mg by mouth daily wi* ENALAPRIL MALEATE 2.5 MG TABL* Take half tablet daily Patient taking differently: Take 1/4 of a tablet daily INSULIN LISPRO (U-100) 100 UN* as directed in insulin pump u* BLOOD SUGAR DIAGNOSTIC STRIPS check blood sugars 6 times da* GLUCAGON (HUMAN RECOMBINANT) * INJECT SUBCUTANEOUSLY. USE A* INSULIN GLARGINE (U-100) 100 * Use as directed if pump fails* * BIOTIN ORAL Take by mouth. * INSULIN SYRINGE-NEEDLE U-100 * use as directed when pump amanda* TRIAMCINOLONE ACETONIDE 0.1 %* Apply 1 application to affect* Problem List As Of Date 08/05/2018 Noted Resolved Uncontrolled type 1 diabetes mellitus with pauline*INVALID FOR* More... 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] INVALID FOR* Left shoulder pain [M25.512] INVALID FOR* Elevated testosterone level in female [R79.89] INVALID FOR* Non-rheumatic tricuspid valve insufficiency [I3*INVALID FOR* Family history of ischemic heart disease before*INVALID FOR* Status post insertion of drug-eluting stent int*INVALID FOR* Encounter Status:Closed by ANITRA FIGUEROA on 08/05/18 ESTRADIOL-17B Collected: 08/02/2018 Status: F Source: [place] 11:29 AM [facility] REPOSITORY TYPE CODE TESTS RESULT OUT OF RANGE REFERENCE UNITS LAB E2 pg/mL 437 Estradiol-17 B Result Comment: This test is not suitable for patients receiving treatment with the drug Fulvestrant (Faslodex). The drug causes an interference leading to falsely elevated estradiol results. Menstrual cycle Estradiol reference ranges: Follicular : < 234 pg/mL Ovulation : 41 to 398 pg/mL Luteal : < 342 pg/mL Estradiol reference ranges vary by gestational period: First trimester : 154 to 3243 pg/mL Second trimester : 1561 TO 86910 pg/mL Third trimester : 8285 to >39671 pg/mL Post-menopausal Estradiol reference range: < 41 pg/mL Reference: 1. Estradiol - E2 (Estradiol III) [package insert V 3.0 [place]ian]. [facility], [place], [place], April 2016. Performed By: #### E2, TSH #### [facility] [address] [place], [place] [address] TSH Collected: 08/02/2018 Status: F Source: [place] 11:29 AM [facility] REPOSITORY TYPE CODE TESTS RESULT OUT OF RANGE REFERENCE UNITS LAB TSH 0.400-5.500 uU/mL TSH 0.858 Result Comment: If the patient is , TSH reference range varies by gestational period: First Trimester 0.100-2.500 uU/mL Second Trimester 0.200-3.000 uU/mL Third Trimester 0.300-3.000 uU/mL References: 1. Jimenez L, Angelina M, Darin EK, et al. Management of Thyroid Dysfunction during and : An Endocrine Society Clinical Practice Guideline. J Clin Endocrinol Metab, 2012:97:4465-9243. 2. Sebastian TOUSSAINT. Overview of thyroid disease in . UpToDate. 2016. Accessed on May 11, 2016. Performed By: #### E2, TSH #### [facility] [address] [place], [place] [address] OBSOLETE Observed: 05/21/2018 Status: COMPLETED Source: [place] 12:00 AM [facility] REPOSITORY Refill (AGCARDWST) MINDY JOSHUA ([id number]) 1980 F Date Time Provider Department 05/21/18 MIKEY SZYMANSKI AGCARDWST During your visit today, we recorded the following information about you: Allergies As of Date: 05/21/2018 Noted Allergy Reaction LIPITOR (ATORVASTATIN CALCIUM) 11/28/2017 17 - Myalgia Comments: High dose Date Reviewed: 05/20/2018 Reviewed by: Isabella Banerjee LPN - Fully Assessed Reason for Visit: Refill Request [94] Order(s):rosuvastatin (CRESTOR) 20 mg tabletTake 1 tablet by mouth daily at bedtime.Disp: 30 tabletRfl: 11 Prescriptions as of 05/21/2018 Sig: ROSUVASTATIN 20 MG TABLET Take 1 tablet by mouth daily * NITROGLYCERIN 0.4 MG SUBLINGU* Dissolve 1 tablet under the t* SPIRONOLACTONE 25 MG TABLET Take 0.5 tablets by mouth onc* TRIAMCINOLONE ACETONIDE 0.1 %* Apply 1 application to affect* COENZYME Q10 100 MG CAPSULE Take 100 mg by mouth twice da* GLUCOSAMINE 116 MG-CHONDROITI* Take by mouth once daily. BRILINTA 90 MG TABLET Take 1 tablet by mouth twice * ASPIRIN 81 MG CHEWABLE TABLET Take 1 tablet by mouth once d* METOPROLOL SUCCINATE ER 25 MG* Take 1 tablet by mouth once d* MULTIVITAMIN CAPSULE Take 1 capsule by mouth once * FERROUS SULFATE 325 MG (65 MG* Take 325 mg by mouth daily wi* ENALAPRIL MALEATE 2.5 MG TABL* Take half tablet daily Patient taking differently: Take 1/4 of a tablet daily INSULIN LISPRO (U-100) 100 UN* as directed in insulin pump u* BLOOD SUGAR DIAGNOSTIC STRIPS check blood sugars 6 times da* GLUCAGON (HUMAN RECOMBINANT) * INJECT SUBCUTANEOUSLY. USE A* INSULIN GLARGINE (U-100) 100 * Use as directed if pump fails* * BIOTIN ORAL Take by mouth. * INSULIN SYRINGE-NEEDLE U-100 * use as directed when pump amanda* Problem List As Of Date 05/21/2018 Noted Resolved Uncontrolled type 1 diabetes mellitus with pauline*INVALID FOR* More... 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 Any refills authorized will be placed on file. Route: ORAL Sig: Take 1 tablet by mouth daily at bedtime. Medications Discontinued During This Encounter rosuvastatin (CRESTOR) 20 mg tablet 30 t* 6 11/28/2017 05/21/2018 Route: ORAL Sig: Take 1 tablet by mouth daily at bedtime. Disc: Reason for discontinue is not on file. Encounter Status:Closed by IRIS CHARLES RN on 05/21/18 ALT Collected: 05/20/2018 Status: F Source: [place] 11:[address] [facility] REPOSITORY TYPE CODE TESTS RESULT OUT OF RANGE REFERENCE UNITS LAB ALT 7-38 U/L ALT 18 Performed By: #### ALT, BMP, CK, LIPB, HBA1C #### [facility] [address] [address] BASIC METABOLIC PANL Collected: 05/20/2018 Status: F Source: [place] 11:[address] [facility] REPOSITORY TYPE CODE TESTS RESULT OUT OF REFERENCE UNITS RANGE LAB GLU 74-99 mg/dL High Glucose 187 Result Comment: The [place] Diabetes Association (ADA) provides guidance for cutoff values for fasting glucose and random glucose. The ADA defines fasting as no caloric intake for at least 8 hours. Fas ting plasma glucose results between 100 to 125 mg/dL indicate increased risk for diabetes (prediabetes). Fasting plasma glucose results greater than or equal to 126 mg/dL meet the criteria for diagnosis of diabetes. In the absence of unequivocal hyperglycemia, results should be confirmed by repeat testing. In a patient with classic symptoms of hyperglycemia or hyperglycemic crisis, random plasma glucose results greater than or equal to 200 mg/dL meet the criteria for diagnosis of diabetes. Reference: Standards of Medical Care in Diabetes 2016, [place] Diabetes Association. Diabetes Care. 2016.39(Suppl 1). LAB BUN 7-21 mg/dL BUN 14 LAB CRET 0.58-0.96 mg/dL Creatinine 0.82 LAB NA 136-144 mmol/L Sodium 139 LAB K 3.7-5.1 mmol/L Potassium 5.0 LAB CL 97-105 mmol/L Chloride 100 LAB CO2 22-30 mmol/L CO2 25 LAB AGAP 9-18 mmol/L Anion Gap 14 LAB CA 8.5-10.2 mg/dL Calcium, Total 9.8 LAB GFRAA eGFR- Amer. >60 LAB GFRNAA . eGFR-All Other Races >60 Result Comment: eGFR (Estimated GFR) Units of measure: mL/min/1.73 meters squared eGFR is derived from the reexpressed MDRD Study equation using the following parameters: serum creatinine, age, gender and race. The creatinine assay has been calibrated to be traceable to IDMS. An eGFR <60 mL/min/1.73m2 for >3 months is consistent with chronic kidney disease. Refer to KDOQI guidelines for clinical interpretation. In patients with unstable renal function, e.g. those with acute kidney injury, the eGFR may not accurately reflect actual GFR. Performed By: #### ALT, BMP, CK, LIPB, HBA1C #### [facility] [address] [place], [place] [address] CK Collected: 05/20/2018 Status: F Source: [facility] 11:15 AM [facility] REPOSITORY TYPE CODE TESTS RESULT OUT OF RANGE REFERENCE UNITS LAB CK 42-196 U/L CK 95 Result Comment: Please note the updated, gender-specific reference range for this test (effective 11/08/2016). Performed By: #### ALT, BMP, CK, LIPB, HBA1C #### [facility] [address] [place], [place] [address] LIPID PANEL, BASIC Collected: 05/20/2018 Status: F Source: [place] 11:[address] [facility] REPOSITORY TYPE CODE TESTS RESULT OUT OF REFERENCE UNITS RANGE LAB CHOL <200 mg/dL Cholesterol 129 Result Comment: <200 mg/dL, Desirable 200-239 mg/dL, Borderline high >239 mg/dL, High LAB TRIGLY <150 mg/dL Triglyceride 51 Result Comment: <150 mg/dL, Normal 150-199 mg/dL, Borderline high 200-499 mg/dL, High >499 mg/dL, Very high LAB HDL >39 mg/dL HDL-Cholesterol 70 Result Comment: 40-59 mg/dL, Acceptable >59 mg/dL, High: Negative risk factor for coronary heart disease <40 mg/dL, Low: Positive risk factor for coronary heart disease LAB LDL <100 mg/dL LDL-Cholesterol 49 Result Comment: <100 mg/dL, Optimal 100-129 mg/dL, Near optimal/above optimal 130-159 mg/dL, Borderline high 160-189 mg/dL, High >189 mg/dL, Very high Secondary prevention optimal LDL Cholesterol levels are recommended to be < 70 mg/dL LAB NONHDL <130 mg/dL Non HDL Cholesterol 59 Result Comment: <130 mg/dL, Optimal 130-159 mg/dL, Near optimal/above optimal 160-189 mg/dL, Borderline high 190-219 mg/dL, High >219 mg/dL, Very high Secondary prevention optimal non HDL Cholesterol levels are recommended to be < 100 mg/dL LAB FT hrs Fasting Time 5 LAB VLDL <30 mg/dL VLDL Cholesterol 10 LAB TCHDL <5.10 TC:HDL Ratio 1.84 LAB LDLHDL <2.54 LDL:HDL Ratio 0.70 Result Comment: Reference: 1. National Cholesterol Education Program ATP III Guideline At-A-Glance Quick Desk Reference: National Heart, Lung, and Blood [place]. National Institutes of Health. 2001: NIH Publication No. 01-3305. 2. An International Atherosclerosis Society position paper: global recommendations for the management of dyslipidemia: executive summary, Atherosclerosis. 2014: 232(2):410-413. Performed By: #### ALT, BMP, CK, LIPB, HBA1C #### [facility] [address] [place], [place] [address] HEMOGLOBIN A1C Collected: 05/20/2018 Status: F Source: [place] 11:[address] [facility] REPOSITORY TYPE CODE TESTS RESULT OUT OF REFERENCE UNITS RANGE LAB HGBA1C 4.3-5.6 % High Hemoglobin A1c 7.3 LAB HBA0 mg/dL Est. Average Glucose 163 Result Comment: eAG: (Estimated average glucose) is a calculated value from HgbA1c and is special service representative of the average blood glucose level in the last 2-3 month period. Performed By: #### ALT, BMP, CK, LIPB, HBA1C #### [facility] [address] [place], [place] [address] PROGRESS Observed: 05/20/2018 Status: COMPLETED Source: [place] 10:[address] [facility] REPOSITORY HNO ID: [id number] Author: Mikey Szymanski Service: (none) Author Type: Physician Type: Progress Notes Filed: 05/20/2018 5:55 PM Note Text: PERTINENT CARDIAC HISTORY ASHD - AMI, PCI total LAD LUIGI 03/10 DM FHL HTN Palpitations Dilated external jugular vein ADHERENCE TO GUIDELINES PARISA-I or ARB for HF with prior LVEF<40 (NQF 0081) - N/A ASA or Plavix for ASHD (NQF 0067) - met Beta rudy for ASHD with prior AK or prior LVEF<40 (NQF 0070) - met Beta rudy for HF with prior LVEF<40 (NQF 0083) - N/A PARISA-I or ARB for ASHD with DM or prior LVEF<40 (NQF 0066) - met Statin therapy for ASHD or FHL or DM - met BMI documented and plan if >25 (NQF 0421) - lifestyle recommendation form Tobacco use screening and referral (NQF 0028) - lifestyle recommendation form Recommendation for whole food, plant based diet - lifestyle recommendation form CLINICAL IMPRESSION/PLAN: Mindy Joshua is borderline hypotensive and this may account for her postural lightheadedness. She is taking Aldactone for treatment of hair loss. I've asked her to cut the dose in half and make sure that she keeps herself well hydrated during the summer. For further evaluation of possible ischemic heart disease, she will undergo exercise tolerance test in the next few months. If there is increased chest pain or shortness of breath, she's been advised to contact me. I will see her in 8 months or as needed. Written and verbal health teaching given to patient, patient verbalizes understanding and agrees with treatment plan. DIAGNOSIS FOR VISIT: ASHD HISTORY OF PRESENT ILLNESS Mindy Joshua returns for follow-up of her coronary disease and hypertension. She reports stable exercise tolerance. She has been exercising. She has used no nitroglycerin. She called on 01/08 to reports some atypical chest discomfort. She was advised to go to the emergency department, but did not. These symptoms resolved and have not recurred. She denies orthopnea. She's had no edema, palpitations, TIAs, amaurosis or claudication. She's had occasional mild postural lightheadedness ALLERGIES: ALLERGIES Allergen Reactions - Lipitor [Atorvastat* Myalgia High dose CURRENT OUTPATIENT MEDICATIONS: triamcinolone acetonide (KENALOG) 0.1 % cream Apply 1 application to affected area three times daily. Apply sparingly to area for rash/itching. coenzyme Q10 (COENZYME Q-10) 100 mg cap capsule Take 100 mg by mouth twice daily. ihssgrrp-klpjjyczewq-hfqm cb25 116-100 mg cap Take by mouth once daily. rosuvastatin (CRESTOR) 20 mg tablet Take 1 tablet by mouth daily at bedtime. BRILINTA 90 mg tablet Take 1 tablet by mouth twice daily. aspirin 81 mg chewable tablet Take 1 tablet by mouth once daily. metoprolol succinate ER (TOPROL XL) 25 mg 24 hr tablet Take 1 tablet by mouth once daily. nitroglycerin sublingual (NITROQUICK) 0.4 mg SL tablet Dissolve 1 tablet under the tongue as needed. FOR CHEST PAIN. IF NO RELIEF CALL 911 Multivitamin capsule Take 1 capsule by mouth once daily. ferrous sulfate 325 mg (65 mg iron) tablet Take 325 mg by mouth daily with breakfast. enalapril (VASOTEC) 2.5 mg tablet Take half tablet daily blood sugar diagnostic (OPENLANE ULTRA TEST) test strip check blood sugars 6 times daily spironolactone (ALDACTONE) 25 mg tablet Take 25 mg by mouth once daily. insulin glargine (LANTUS) 100 unit/mL injection Use as directed if pump fails up to 50 units/day BIOTIN ORAL Take by mouth. insulin lispro (HUMALOG) 100 unit/mL injection as directed in insulin pump up to 100 units daily glucagon, human recombinant, (GLUCAGON EMERGENCY KIT, HUMAN,) 1 mg injection INJECT SUBCUTANEOUSLY. USE DIRECTED Insulin Syringe-Needle U-100 (BD INSULIN SYRINGE UF II) 1/2 mL 31 x 5/16 Syrg use as directed when pump fails PHYSICAL EXAMINATION: VITAL SIGNS: BP 106/64 Pulse 63 Resp 18 Wt 131 lb (59.4kg) Chest: Clear to percussion and auscultation. Trachea is midline. Air entry is equal. Cardiac: Regular rhythm. S1 and S2 are normal. PMI is nondisplaced. There are no murmurs, rubs or gallops. Carotids are brisk without bruits. JVP is less than 10 cm. Abdomen: Soft and nontender. There are no pulsatile masses or bruits. No liver enlargement. Bowel sounds are active. Extremities: No edema. Pulses are intact and symmetrical. EKG shows sinus rhythm and is within normal limits. There is no significant change. Electronically Signed: Mikey Szymanski MD May 20, 2018 10:56 AM CC: ERIC Abel CNANT Observed: 05/20/2018 Status: COMPLETED Source: [place] 10:[address] [facility] REPOSITORY Office Visit (CAWSTR) JOSIANEMINDY CRUZ ([id number]) 1980 F Date Time Provider Department 05/20/18 10:30 AM MIKEY SZYMANSKI CAWSTR During your visit today, we recorded the following information about you: Pulse Respiration Blood pressure Weight 63/minute 18/minute 106/64 59.4 kg Mikey Szymanski MD 05/20/2018 5:55 PM Signed PERTINENT CARDIAC HISTORY ASHD - AMI, PCI total LAD LUIGI 03/10 DM FHL HTN Palpitations Dilated external jugular vein ADHERENCE TO GUIDELINES PARISA-I or ARB for HF with prior LVEF<40 (NQF 0081) - N/A ASA or Plavix for ASHD (NQF 0067) - met Beta rudy for ASHD with prior AK or prior LVEF<40 (NQF 0070) - met Beta rudy for HF with prior LVEF<40 (NQF 0083) - N/A PARISA-I or ARB for ASHD with DM or prior LVEF<40 (NQF 0066) - met Statin therapy for ASHD or FHL or DM - met BMI documented and plan if >25 (NQF 0421) - lifestyle recommendation form Tobacco use screening and referral (NQF 0028) - lifestyle recommendation form Recommendation for whole food, plant based diet - lifestyle recommendation form CLINICAL IMPRESSION/PLAN: Mindy Joshua is borderline hypotensive and this may account for her postural lightheadedness. She is taking Aldactone for treatment of hair loss. I've asked her to cut the dose in half and make sure that she keeps herself well hydrated during the summer. For further evaluation of possible ischemic heart disease, she will undergo exercise tolerance test in the next few months. If there is increased chest pain or shortness of breath, she's been advised to contact me. I will see her in 8 months or as needed. Written and verbal health teaching given to patient, patient verbalizes understanding and agrees with treatment plan. DIAGNOSIS FOR VISIT: ASHD HISTORY OF PRESENT ILLNESS Mindy Joshua returns for follow-up of her coronary disease and hypertension. She reports stable exercise tolerance. She has been exercising. She has used no nitroglycerin. She called on 01/08 to reports some atypical chest discomfort. She was advised to go to the emergency department, but did not. These symptoms resolved and have not recurred. She denies orthopnea. She's had no edema, palpitations, TIAs, amaurosis or claudication. She's had occasional mild postural lightheadedness ALLERGIES: ALLERGIES Allergen Reactions - Lipitor [Atorvastat* Myalgia High dose CURRENT OUTPATIENT MEDICATIONS: triamcinolone acetonide (KENALOG) 0.1 % cream Apply 1 application to affected area three times daily. Apply sparingly to area for rash/itching. coenzyme Q10 (COENZYME Q-10) 100 mg cap capsule Take 100 mg by mouth twice daily. tmvcudpu-tbdpqcklagm-wzur cb25 116-100 mg cap Take by mouth once daily. rosuvastatin (CRESTOR) 20 mg tablet Take 1 tablet by mouth daily at bedtime. BRILINTA 90 mg tablet Take 1 tablet by mouth twice daily. aspirin 81 mg chewable tablet Take 1 tablet by mouth once daily. metoprolol succinate ER (TOPROL XL) 25 mg 24 hr tablet Take 1 tablet by mouth once daily. nitroglycerin sublingual (NITROQUICK) 0.4 mg SL tablet Dissolve 1 tablet under the tongue as needed. FOR CHEST PAIN. IF NO RELIEF CALL 911 Multivitamin capsule Take 1 capsule by mouth once daily. ferrous sulfate 325 mg (65 mg iron) tablet Take 325 mg by mouth daily with breakfast. enalapril (VASOTEC) 2.5 mg tablet Take half tablet daily blood sugar diagnostic ([place] [employer] ULTRA TEST) test strip check blood sugars 6 times daily spironolactone (ALDACTONE) 25 mg tablet Take 25 mg by mouth once daily. insulin glargine (LANTUS) 100 unit/mL injection Use as directed if pump fails up to 50 units/day BIOTIN ORAL Take by mouth. insulin lispro (HUMALOG) 100 unit/mL injection as directed in insulin pump up to 100 units daily glucagon, human recombinant, (GLUCAGON EMERGENCY KIT, HUMAN,) 1 mg injection INJECT SUBCUTANEOUSLY. USE DIRECTED Insulin Syringe-Needle U-100 (BD INSULIN SYRINGE UF II) 1/2 mL 31 x 5/16 Syrg use as directed when pump fails PHYSICAL EXAMINATION: VITAL SIGNS: BP 106/64 Pulse 63 Resp 18 Wt 131 lb (59.4kg) Chest: Clear to percussion and auscultation. Trachea is midline. Air entry is equal. Cardiac: Regular rhythm. S1 and S2 are normal. PMI is nondisplaced. There are no murmurs, rubs or gallops. Carotids are brisk without bruits. JVP is less than 10 cm. Abdomen: Soft and nontender. There are no pulsatile masses or bruits. No liver enlargement. Bowel sounds are active. Extremities: No edema. Pulses are intact and symmetrical. EKG shows sinus rhythm and is within normal limits. There is no significant change. Electronically Signed: Mikey Szymanski MD May 20, 2018 10:56 AM CC: Waqar Rueda, [facility] Mikey Szymanski MD 05/20/2018 10:58 AM Signed LIFESTYLE CHANGE A healthy lifestyle is the most important component of your overall treatment plan. Please give serious thought to the following areas and commit to making halfway changes. EAT A WHOLE FOOD, PLANT BASED DIET The nutrition your body gets is more important than the medicine you take. What matters most is the overall way you eat. We encourage you to minimize the use of animal products (which include dairy and all meats except fatty fish) and use whole, unprocessed plant foods to provide your protein, vitamins and other nutrients. We have a lot of information to share with you on this topic. This is not a diet. It is a way of life that you will keep with you. EXERCISE REGULARLY It is not important to spend hours in the gym, lifting weights and perspiring heavily. A total of 2-3 hours per week of aerobic (causing you to be moderately short of breath) exercise is sufficient to improve your health. Talk to us before you begin a new exercise program, if you have heart disease or experience shortness of breath or chest pain. REDUCE STRESS Chronic emotional and physical stress leads to disease. Ways of reducing stress include meditation, visualization, prayer, yoga and other forms of relaxation therapy. Consistency is the sherman. Find a technique that works for you and do it every day. CULTIVATE RELATIONSHIPS Loneliness and isolation have a major negative impact on health. Seek out others who can love, care for and nurture you. Avoid hurtful relationships. MAINTAIN IDEAL BODY WEIGHT The best way to do this is to do all the things above. Our bodies naturally find the right weight if we keep moving and feed ourselves the right food. If your BMI is greater than 25, we strongly recommend a referral to a weight management program. Please speak to us or your family physician about available programs. AVOID NICOTINE IN ALL FORMS This includes all tobacco products, whether chewed, smoked, vaped, or rubbed on the skin. Smoking cessation programs, which can make use of tobacco substitutes, medications to suppress cravings and behavior management, are available. Please contact your family physician about programs in your area. Referring Provider: MIKEY SZYMANSKI [[id number]] Allergies As of Date: 05/20/2018 Noted Allergy Reaction LIPITOR (ATORVASTATIN CALCIUM) 11/28/2017 17 - Myalgia Comments: High dose Date Reviewed: 05/20/2018 Reviewed by: Isabella Banerjee LPN - Fully Assessed Reason for Visit: Established Patient [175] Cmt: 6 month follow up ASHD Primary Visit Diagnosis:ASHD (arteriosclerotic heart disease) [I25.10] Other Visit Diagnosis:Atherosclerosis of coronary artery of [place] heart without angina pectoris, unspecified vessel or lesion type [I25.10] Order(s):nitroglycerin sublingual (NITROQUICK) 0.4 mg SL tabletDissolve 1 tablet under the tongue as needed. FOR CHEST PAIN. IF NO RELIEF CALL 911Disp: 25 Bottle of 25Rfl: 0 ECG COMPLETE W INTERPRETATION [ECG01] Order #: [id number] FUTURE LIPID PANEL BASIC [SQLIPB] Order #: [id number] FUTURE ALT/SGPT [SQALT] Order #: [id number] FUTURE CK CREATINE KINASE [SQCK] Order #: [id number] FUTURE BASIC METABOLIC PNL [SQBMP] Order #: [id number] FUTURE HGB A1C [AOEPO7V] Order #: [id number] FUTURE spironolactone (ALDACTONE) 25 mg tabletTake 0.5 tablets by mouth once daily.Disp: Rfl: STRESS REGULAR W/TREAD [[id number]] Order #: [id number]: 1 FUTURE STRESS REGULAR W/TREAD [[id number]] Order #: [id number]: 1 Prescriptions as of 05/20/2018 Sig: NITROGLYCERIN 0.4 MG SUBLINGU* Dissolve 1 tablet under the t* SPIRONOLACTONE 25 MG TABLET Take 0.5 tablets by mouth onc* TRIAMCINOLONE ACETONIDE 0.1 %* Apply 1 application to affect* COENZYME Q10 100 MG CAPSULE Take 100 mg by mouth twice da* GLUCOSAMINE 116 MG-CHONDROITI* Take by mouth once daily. ROSUVASTATIN 20 MG TABLET Take 1 tablet by mouth daily * BRILINTA 90 MG TABLET Take 1 tablet by mouth twice * ASPIRIN 81 MG CHEWABLE TABLET Take 1 tablet by mouth once d* METOPROLOL SUCCINATE ER 25 MG* Take 1 tablet by mouth once d* MULTIVITAMIN CAPSULE Take 1 capsule by mouth once * FERROUS SULFATE 325 MG (65 MG* Take 325 mg by mouth daily wi* ENALAPRIL MALEATE 2.5 MG TABL* Take half tablet daily Patient taking differently: Take 1/4 of a tablet daily BLOOD SUGAR DIAGNOSTIC STRIPS check blood sugars 6 times da* INSULIN GLARGINE (U-100) 100 * Use as directed if pump fails* * BIOTIN ORAL Take by mouth. INSULIN LISPRO (U-100) 100 UN* as directed in insulin pump u* GLUCAGON (HUMAN RECOMBINANT) * INJECT SUBCUTANEOUSLY. USE A* * INSULIN SYRINGE-NEEDLE U-100 * use as directed when pump amanda* Problem List As Of Date 05/20/2018 Noted Resolved Uncontrolled type 1 diabetes mellitus with pauline*INVALID FOR* More... 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 Please give serious thought to the following areas and commit to making halfway changes. EAT A WHOLE FOOD, PLANT BASED DIET The nutrition your body gets is more important than the medicine you take. What matters most is the overall way you eat. We encourage you to minimize the use of animal products (which include dairy and all meats except fatty fish) and use whole, unprocessed plant foods to provide your protein, vitamins and other nutrients. We have a lot of information to share with you on this topic. This is not a diet. It is a way of life that you will keep with you. EXERCISE REGULARLY It is not important to spend hours in the gym, lifting weights and perspiring heavily. A total of 2-3 hours per week of aerobic (causing you to be moderately short of breath) exercise is sufficient to improve your health. Talk to us before you begin a new exercise program, if you have heart disease or experience shortness of breath or chest pain. REDUCE STRESS Chronic emotional and physical stress leads to disease. Ways of reducing stress include meditation, visualization, prayer, yoga and other forms of relaxation therapy. Consistency is the sherman. Find a technique that works for you and do it every day. CULTIVATE RELATIONSHIPS Loneliness and isolation have a major negative impact on health. Seek out others who can love, care for and nurture you. Avoid hurtful relationships. MAINTAIN IDEAL BODY WEIGHT The best way to do this is to do all the things above. Our bodies naturally find the right weight if we keep moving and feed ourselves the right food. If your BMI is greater than 25, we strongly recommend a referral to a weight management program. Please speak to us or your family physician about available programs. AVOID NICOTINE IN ALL FORMS This includes all tobacco products, whether chewed, smoked, vaped, or rubbed on the skin. Smoking cessation programs, which can make use of tobacco substitutes, medications to suppress cravings and behavior management, are available. Please contact your family physician about programs in your area. Prescriptions ordered this encounter Disp Refills Start End NITROGLYCERIN 0.4 MG SUBLINGUAL TABL* 25 B* 0 05/20/2018 Route: SUBLINGUAL Sig: Dissolve 1 tablet under the tongue as needed. FOR CHEST PAIN. IF NO RELIEF CALL 911 SPIRONOLACTONE 25 MG TABLET 05/20/2018 Class: Med Update Route: ORAL Sig: Take 0.5 tablets by mouth once daily. Medications Discontinued During This Encounter nitroglycerin sublingual (NITROQUICK* 25 B* 0 03/15/2016 05/20/2018 Route: SUBLINGUAL Sig: Dissolve 1 tablet under the tongue as needed. FOR CHEST PAIN. IF NO RELIEF CALL 911 Disc: Reason for discontinue is not on file. spironolactone (ALDACTONE) 25 mg tab* 05/20/2018 Class: Historical Med Route: ORAL Sig: Take 25 mg by mouth once daily. Disc: Reason for discontinue is not on file. Encounter Status:Closed by MIKEY SZYMANSKI MD on 05/20/18 DOWNTIME REPORT Observed: 05/15/2018 Status: F Source: [place] 12:16 PM [facility] REPOSITORY [facility] Medical Records Department [address] [place] [address] Downtime Report MR#: [id number] Acct: [id number] Name: MINDY JOSHUA Rep #: [id number] : 1980 37 From: Tonny Maddox PCP: Waqar Rueda Status: REG RCR This patient was seen during an EMR downtime April 28, 2018 - May 05, 2018. This patient may have a combination of paper and electronic documentation or all paper documentation. All documentation is viewable within the e-chart portion of [employer] for each patient visit. PROGRESS Observed: 04/29/2018 Status: COMPLETED Source: [place] 7:56 AM [facility] RE[facility] HNO ID: [id number] Author: Betty (Watson) Ela Service: (none) Author Type: Nurse Practitioner Type: Progress Notes Filed: 04/29/2018 8:01 AM Note Text: Subjective HPI Mindy Joshua is a 37 year old female who presents with a splinter in the tip of her right index finger. She was pulling weeds last night when she got the splinter. She has not attempted removal. She rates her pain a 3/10. She has not taken anything for the pain at home. Review of Systems Constitutional: Negative. Negative for fever. Musculoskeletal: Negative. Skin: Negative. See HPI BP 102/68 Pulse 68 Temp 36 ?C (96.8 ?F) (Tympanic) Resp 16 Wt 60.3 kg (133 lb) BMI 22.48 kg/m? PAST MEDICAL HISTORY Diagnosis Date - Hypercholesteremia - AK (myocardial infarction) (HCC) 02/2016 - Type I (juvenile type) diabetes mellitus without mention of complication, uncontrolled since age 11 PAST SURGICAL HISTORY Procedure Laterality Date - DELIVERY ONLY 2004, 2006 , low cervical - COLONOSCOP W/ OR W/O RUST SPEC 06/04/08 - COLONOSCOP W/ OR W/O RUST SPEC 10/31/2011 Colonoscopy - HEART CATHETERIZATION 03/16/2016 with stent placement - MANIPULATION-SHOULDER DISLOCATION W/ANESTH - PAST SURGICAL HISTORY OF 2000 [place] - PAST SURGICAL HISTORY OF Adnoids Removed - RECONSTRUCT PROX HUMERAL IMPLANT Right 10/2016 Arthroplasty, shoulder ALLERGIES Lipitor [Atorvastatin Calcium] MEDICATIONS predniSONE (DELTASONE) 10 mg tablet Take 4 tabs daily x 3 days, then 3 tabs x 3 days, 2 tabs x 3 days, then 1 tab x3 days with food. triamcinolone acetonide (KENALOG) 0.1 % cream Apply 1 application to affected area three times daily. Apply sparingly to area for rash/itching. coenzyme Q10 (COENZYME Q-10) 100 mg cap capsule Take 100 mg by mouth twice daily. typwwryg-clpcayfsegd-uejl cb25 116-100 mg cap Take by mouth once daily. rosuvastatin (CRESTOR) 20 mg tablet Take 1 tablet by mouth daily at bedtime. BRILINTA 90 mg tablet Take 1 tablet by mouth twice daily. aspirin 81 mg chewable tablet Take 1 tablet by mouth once daily. metoprolol succinate ER (TOPROL XL) 25 mg 24 hr tablet Take 1 tablet by mouth once daily. nitroglycerin sublingual (NITROQUICK) 0.4 mg SL tablet Dissolve 1 tablet under the tongue as needed. FOR CHEST PAIN. IF NO RELIEF CALL 911 Multivitamin capsule Take 1 capsule by mouth once daily. ferrous sulfate 325 mg (65 mg iron) tablet Take 325 mg by mouth daily with breakfast. enalapril (VASOTEC) 2.5 mg tablet Take half tablet daily insulin lispro (HUMALOG) 100 unit/mL injection as directed in insulin pump up to 100 units daily blood sugar diagnostic (ONETOUCH ULTRA TEST) test strip check blood sugars 6 times daily glucagon, human recombinant, (GLUCAGON EMERGENCY KIT, HUMAN,) 1 mg injection INJECT SUBCUTANEOUSLY. USE DIRECTED spironolactone (ALDACTONE) 25 mg tablet Take 25 mg by mouth once daily. insulin glargine (LANTUS) 100 unit/mL injection Use as directed if pump fails up to 50 units/day BIOTIN ORAL Take by mouth. Insulin Syringe-Needle U-100 (BD INSULIN SYRINGE UF II) 1/2 mL 31 x 5/16 Syrg use as directed when pump fails FAMILY HISTORY Problem Relation Age of Onset - Ischemic Heart Disease Mother - Diabetes Mother - Heart Maternal Grandfather - Colon Cancer Father Social History Substance Use Topics - Smoking status: Never Smoker - Smokeless tobacco: Never Used - Alcohol use No Objective Physical Exam Constitutional: She is well-developed, well-nourished, and in no distress. Musculoskeletal: Hands: Neurological: She is alert. Skin: Skin is warm and dry. No erythema. Nursing note and vitals reviewed. ASSESSMENT/PLAN: 1. Splinter in skin - ICD9: 919.6, ICD10: T14.8XXA - attempted removal, used 18 ga needle to de-roof above splinter and used forceps, unable to expose enough of splinter to grasp with forceps. Recommended to patient to soak in warm water/epsom salts. When splinter tip becomes visible, may remove with forceps or return here for removal if tip is visible. Observe for signs of infection. Seek care if occur. - Follow-up with your PCP in 3-5 days if symptoms have not improved or sooner if symptoms worsen - Discussed red flags and need for immediate medical evaluation if any occur. - Discussed supportive care treatment with fluids, rest and analgesia. Betty Mahmood APRN.DRYWALL INSTALLER CNOV Observed: 04/29/2018 Status: COMPLETED Source: [place] 7:[address] [facility] REPOSITORY Office Visit (WSTR) MINDY JOSHUA ([id number]) 1980 F Date Time Provider Department 04/29/18 7:15 AM BETTY MAHMOOD ([facility]) [facility] During your visit today, we recorded the following information about you: Temperature Pulse Respiration Blood pressure 96.8 degrees 68/minute 16/minute 102/68 Weight 60.3 kg Betty Mahmood APRN.DRYWALL INSTALLER 04/29/2018 7:44 AM Signed Soak fingertip in warm water with epsom salt three times daily. May also use peroxide. When splinter tip becomes visible, you may remove it, or return here for removal. Recommend Motrin or Tylenol for pain. Betty Mahmood APRN.DRYWALL INSTALLER 04/29/2018 8:01 AM Signed Subjective HPI Mindy Joshua is a 37 year old female who presents with a splinter in the tip of her right index finger. She was pulling weeds last night when she got the splinter. She has not attempted removal. She rates her pain a 3/10. She has not taken anything for the pain at home. Review of Systems Constitutional: Negative. Negative for fever. Musculoskeletal: Negative. Skin: Negative. See HPI BP 102/68 Pulse 68 Temp 36 ?C (96.8 ?F) (Tympanic) Resp 16 Wt 60.3 kg (133 lb) BMI 22.48 kg/m? PAST MEDICAL HISTORY Diagnosis Date - Hypercholesteremia - AK (myocardial infarction) ([facility]) 02/2016 - Type I (juvenile type) diabetes mellitus without mention of complication, uncontrolled since age 11 PAST SURGICAL HISTORY Procedure Laterality Date - DELIVERY ONLY 2004, 2006 , low cervical - COLONOSCOP W/ OR W/O RUST SPEC 06/04/08 - COLONOSCOP W/ OR W/O RUST SPEC 10/31/2011 Colonoscopy - HEART CATHETERIZATION 03/16/2016 with stent placement - MANIPULATION-SHOULDER DISLOCATION W/ANESTH - PAST SURGICAL HISTORY OF 2000 [place] - PAST SURGICAL HISTORY OF Adnoids Removed - RECONSTRUCT PROX HUMERAL IMPLANT Right 10/2016 Arthroplasty, shoulder ALLERGIES Lipitor [Atorvastatin Calcium] MEDICATIONS predniSONE (DELTASONE) 10 mg tablet Take 4 tabs daily x 3 days, then 3 tabs x 3 days, 2 tabs x 3 days, then 1 tab x3 days with food. triamcinolone acetonide (KENALOG) 0.1 % cream Apply 1 application to affected area three times daily. Apply sparingly to area for rash/itching. coenzyme Q10 (COENZYME Q-10) 100 mg cap capsule Take 100 mg by mouth twice daily. icnjkzlm-lugrfsdbtnq-ckge cb25 116-100 mg cap Take by mouth once daily. rosuvastatin (CRESTOR) 20 mg tablet Take 1 tablet by mouth daily at bedtime. BRILINTA 90 mg tablet Take 1 tablet by mouth twice daily. aspirin 81 mg chewable tablet Take 1 tablet by mouth once daily. metoprolol succinate ER (TOPROL XL) 25 mg 24 hr tablet Take 1 tablet by mouth once daily. nitroglycerin sublingual (NITROQUICK) 0.4 mg SL tablet Dissolve 1 tablet under the tongue as needed. FOR CHEST PAIN. IF NO RELIEF CALL 911 Multivitamin capsule Take 1 capsule by mouth once daily. ferrous sulfate 325 mg (65 mg iron) tablet Take 325 mg by mouth daily with breakfast. enalapril (VASOTEC) 2.5 mg tablet Take half tablet daily insulin lispro (HUMALOG) 100 unit/mL injection as directed in insulin pump up to 100 units daily blood sugar diagnostic ([place] [place] [employer]TRA [facility]) test strip check blood sugars 6 times daily glucagon, human recombinant, (GLUCAGON EMERGENCY KIT, HUMAN,) 1 mg injection INJECT SUBCUTANEOUSLY. USE DIRECTED spironolactone (ALDACTONE) 25 mg tablet Take 25 mg by mouth once daily. insulin glargine (LANTUS) 100 unit/mL injection Use as directed if pump fails up to 50 units/day BIOTIN ORAL Take by mouth. Insulin Syringe-Needle U-100 (BD INSULIN SYRINGE UF II) 1/2 mL 31 x 5/16 Syrg use as directed when pump fails FAMILY HISTORY Problem Relation Age of Onset - Ischemic Heart Disease Mother - Diabetes Mother - Heart Maternal Grandfather - Colon Cancer Father Social History Substance Use Topics - Smoking status: Never Smoker - Smokeless tobacco: Never Used - Alcohol use No Objective Physical Exam Constitutional: She is well-developed, well-nourished, and in no distress. Musculoskeletal: Hands: Neurological: She is alert. Skin: Skin is warm and dry. No erythema. Nursing note and vitals reviewed. ASSESSMENT/PLAN: 1. Splinter in skin - ICD9: 919.6, ICD10: T14.8XXA - attempted removal, used 18 ga needle to de-roof above splinter and used forceps, unable to expose enough of splinter to grasp with forceps. Recommended to patient to soak in warm water/epsom salts. When splinter tip becomes visible, may remove with forceps or return here for removal if tip is visible. Observe for signs of infection. Seek care if occur. - Follow-up with your PCP in 3-5 days if symptoms have not improved or sooner if symptoms worsen - Discussed red flags and need for immediate medical evaluation if any occur. - Discussed supportive care treatment with fluids, rest and analgesia. Betty Mahmood APRN.DRYWALL INSTALLER Referring Provider: SELF [[id number]] Allergies As of Date: 04/29/2018 Noted Allergy Reaction LIPITOR (ATORVASTATIN CALCIUM) 11/28/2017 17 - Myalgia Comments: High dose Date Reviewed: 04/29/2018 Reviewed by: Carolyn Steele Ma - Fully Assessed Reason for Visit: Foreign Body [1750] Cmt: right index finger x last night, diabetic Primary Visit Diagnosis:Splinter in skin [T14.8XXA] Prescriptions as of 04/29/2018 Sig: PREDNISONE 10 MG TABLET Take 4 tabs daily x 3 days, t* TRIAMCINOLONE ACETONIDE 0.1 %* Apply 1 application to affect* COENZYME Q10 100 MG CAPSULE Take 100 mg by mouth twice da* GLUCOSAMINE 116 MG-CHONDROITI* Take by mouth once daily. ROSUVASTATIN 20 MG TABLET Take 1 tablet by mouth daily * BRILINTA 90 MG TABLET Take 1 tablet by mouth twice * ASPIRIN 81 MG CHEWABLE TABLET Take 1 tablet by mouth once d* METOPROLOL SUCCINATE ER 25 MG* Take 1 tablet by mouth once d* NITROGLYCERIN 0.4 MG SUBLINGU* Dissolve 1 tablet under the t* MULTIVITAMIN CAPSULE Take 1 capsule by mouth once * FERROUS SULFATE 325 MG (65 MG* Take 325 mg by mouth daily wi* ENALAPRIL MALEATE 2.5 MG TABL* Take half tablet daily Patient taking differently: Take 1/4 of a tablet daily INSULIN LISPRO (U-100) 100 UN* as directed in insulin pump u* BLOOD SUGAR DIAGNOSTIC STRIPS check blood sugars 6 times da* GLUCAGON (HUMAN RECOMBINANT) * INJECT SUBCUTANEOUSLY. USE A* SPIRONOLACTONE 25 MG TABLET Take 25 mg by mouth once agatha* INSULIN GLARGINE (U-100) 100 * Use as directed if pump fails* * BIOTIN ORAL Take by mouth. * INSULIN SYRINGE-NEEDLE U-100 * use as directed when pump amanda* Problem List As Of Date 04/29/2018 Noted Resolved Uncontrolled type 1 diabetes mellitus with pauline*INVALID FOR* More... 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 May also use peroxide. When splinter tip becomes visible, you may remove it, or return here for removal. Recommend Motrin or Tylenol for pain. Encounter Status:Closed by BETTY MAHMOOD on 04/29/18 PROGRESS Observed: 04/25/2018 Status: COMPLETED Source: [place] 12:56 PM [facility] REPOSITORY O ID: [id number] Author: Janes Noel Service: (none) Author Type: Nurse Practitioner Type: Progress Notes Filed: 04/25/2018 1:35 PM Note Text: Subjective HPI HPI Mindy Joshua is a 37 year old female who presents today for CC of poison jeff. This started 2 days ago. Has tried otc medicatoin. Symptoms are worsened by nothing. Risk factors hx of poison jeff allergy. .Patient presents with: poison jeff arms, face and neck: x 2 days PAST MEDICAL HISTORY Diagnosis Date - Hypercholesteremia - AK (myocardial infarction) (HCC) 02/2016 - Type I (juvenile type) diabetes mellitus without mention of complication, uncontrolled since age 11 PAST SURGICAL HISTORY Procedure Laterality Date - DELIVERY ONLY 2004, 2006 , low cervical - COLONOSCOP W/ OR W/O RUST SPEC 06/04/08 - COLONOSCOP W/ OR W/O RUST SPEC 10/31/2011 Colonoscopy - HEART CATHETERIZATION 03/16/2016 with stent placement - MANIPULATION-SHOULDER DISLOCATION W/ANESTH - PAST SURGICAL HISTORY OF 2000 [place] - PAST SURGICAL HISTORY OF Adnoids Removed - RECONSTRUCT PROX HUMERAL IMPLANT Right 10/2016 Arthroplasty, shoulder ALLERGIES Lipitor [Atorvastatin Calcium] MEDICATIONS coenzyme Q10 (COENZYME Q-10) 100 mg cap capsule Take 100 mg by mouth twice daily. cqfjaikq-hclrzfaxlwe-zpks cb25 116-100 mg cap Take by mouth once daily. rosuvastatin (CRESTOR) 20 mg tablet Take 1 tablet by mouth daily at bedtime. BRILINTA 90 mg tablet Take 1 tablet by mouth twice daily. aspirin 81 mg chewable tablet Take 1 tablet by mouth once daily. metoprolol succinate ER (TOPROL XL) 25 mg 24 hr tablet Take 1 tablet by mouth once daily. nitroglycerin sublingual (NITROQUICK) 0.4 mg SL tablet Dissolve 1 tablet under the tongue as needed. FOR CHEST PAIN. IF NO RELIEF CALL 911 Multivitamin capsule Take 1 capsule by mouth once daily. ferrous sulfate 325 mg (65 mg iron) tablet Take 325 mg by mouth daily with breakfast. enalapril (VASOTEC) 2.5 mg tablet Take half tablet daily insulin lispro (HUMALOG) 100 unit/mL injection as directed in insulin pump up to 100 units daily blood sugar diagnostic (GigsTimeTOUCH ULTRA TEST) test strip check blood sugars 6 times daily glucagon, human recombinant, (GLUCAGON EMERGENCY KIT, HUMAN,) 1 mg injection INJECT SUBCUTANEOUSLY. USE DIRECTED spironolactone (ALDACTONE) 25 mg tablet Take 25 mg by mouth once daily. insulin glargine (LANTUS) 100 unit/mL injection Use as directed if pump fails up to 50 units/day BIOTIN ORAL Take by mouth. Insulin Syringe-Needle U-100 (BD INSULIN SYRINGE UF II) 1/2 mL 31 x 5/16 Syrg use as directed when pump fails FAMILY HISTORY Problem Relation Age of Onset - Ischemic Heart Disease Mother - Diabetes Mother - Heart Maternal Grandfather - Colon Cancer Father Social History Substance Use Topics - Smoking status: Never Smoker - Smokeless tobacco: Never Used - Alcohol use No Review of Systems Constitutional: Negative for chills and fever. Skin: Positive for itching and rash (Positive for clear, watery drainage. Denies warmth and purulent drainage. ). Objective Blood pressure 98/58, pulse 82, temperature 36.4 ?C (97.5 ?F), temperature source Tympanic, resp. rate 18, weight 60.8 kg (134 lb). Physical Exam Constitutional: She is oriented to person, place, and time and well-developed, well-nourished, and in no distress. Non-toxic appearance. She does not have a sickly appearance. No distress. HENT: Head: Normocephalic and atraumatic. Neurological: She is alert and oriented to person, place, and time. Skin: Skin is warm, dry and intact. Rash noted. Rash is vesicular (distribution linear ). She is not diaphoretic. ASSESSMENT/PLAN: 1. Allergic contact dermatitis due to plants, except food - ICD9: 692.6, ICD10: L23.7 - Oral Steriod tx -Prednisone taper - Topical steriod tx with Rx for steriod cream/ointment- see orders - discussed skin care of rash - follow up if symptoms persist or worsen. -discussed concerns taking prednisone with diabetes - PREDNISONE 10 MG TABLET - TRIAMCINOLONE ACETONIDE 0.1 % TOPICAL CREAM Prescription instructions reviewed with patient as applicable. Patient advised if symptoms do not improve or if symptoms worsen sooner, to contact the office for further evaluation by their primary care physician. Potential red flag symptoms discussed with the patient. Reviewed appropriate action plan to take if red flag symptoms occur. Patient agreeable to treatment plan. Janes Noel APRN.[facility] CNOV Observed: 04/25/2018 Status: COMPLETED Source: [place] 12:[address] [facility] REPOSITORY Office Visit ([email or web address]) MINDY JOSHUA ([id number]) 1980 F Date Time Provider Department 04/25/18 12:30 PM JANES NOEL ([facility]) [facility] During your visit today, we recorded the following information about you: Temperature Pulse Respiration Blood pressure 97.5 degrees 82/minute 18/minute 98/58 Weight 60.8 kg Janes Noel APRN.CNP 04/25/2018 1:35 PM Signed Subjective HPI HPI Mindy Joshua is a 37 year old female who presents today for CC of poison jeff. This started 2 days ago. Has tried otc medicatoin. Symptoms are worsened by nothing. Risk factors hx of poison jeff allergy. .Patient presents with: poison jeff arms, face and neck: x 2 days PAST MEDICAL HISTORY Diagnosis Date - Hypercholesteremia - [place] (myocardial infarction) (HCC) 02/2016 - Type I (juvenile type) diabetes mellitus without mention of complication, uncontrolled since age 11 PAST SURGICAL HISTORY Procedure Laterality Date - DELIVERY ONLY 2004, 2006 , low cervical - COLONOSCOP W/ OR W/O RUST SPEC 06/04/08 - COLONOSCOP W/ OR W/O RUST SPEC 10/31/2011 Colonoscopy - HEART CATHETERIZATION 03/16/2016 with stent placement - MANIPULATION-SHOULDER DISLOCATION W/ANESTH - PAST SURGICAL HISTORY OF 1999 [place] - PAST SURGICAL HISTORY OF Adnoids Removed - RECONSTRUCT PROX HUMERAL IMPLANT Right 10/2016 Arthroplasty, shoulder ALLERGIES Lipitor [Atorvastatin Calcium] MEDICATIONS coenzyme Q10 (COENZYME Q-10) 100 mg cap capsule Take 100 mg by mouth twice daily. awjetzwt-todbzkjgwqm-nzor cb25 116-100 mg cap Take by mouth once daily. rosuvastatin (CRESTOR) 20 mg tablet Take 1 tablet by mouth daily at bedtime. BRILINTA 90 mg tablet Take 1 tablet by mouth twice daily. aspirin 81 mg chewable tablet Take 1 tablet by mouth once daily. metoprolol succinate ER (TOPROL XL) 25 mg 24 hr tablet Take 1 tablet by mouth once daily. nitroglycerin sublingual (NITROQUICK) 0.4 mg SL tablet Dissolve 1 tablet under the tongue as needed. FOR CHEST PAIN. IF NO RELIEF CALL 911 Multivitamin capsule Take 1 capsule by mouth once daily. ferrous sulfate 325 mg (65 mg iron) tablet Take 325 mg by mouth daily with breakfast. enalapril (VASOTEC) 2.5 mg tablet Take half tablet daily insulin lispro (HUMALOG) 100 unit/mL injection as directed in insulin pump up to 100 units daily blood sugar diagnostic (GigsTimeTOUCH ULTRA TEST) test strip check blood sugars 6 times daily glucagon, human recombinant, (GLUCAGON EMERGENCY KIT, HUMAN,) 1 mg injection INJECT SUBCUTANEOUSLY. USE DIRECTED spironolactone (ALDACTONE) 25 mg tablet Take 25 mg by mouth once daily. insulin glargine (LANTUS) 100 unit/mL injection Use as directed if pump fails up to 50 units/day BIOTIN ORAL Take by mouth. Insulin Syringe-Needle U-100 (BD INSULIN SYRINGE UF II) 1/2 mL 31 x 5/16 Syrg use as directed when pump fails FAMILY HISTORY Problem Relation Age of Onset - Ischemic Heart Disease Mother - Diabetes Mother - Heart Maternal Grandfather - Colon Cancer Father Social History Substance Use Topics - Smoking status: Never Smoker - Smokeless tobacco: Never Used - Alcohol use No Review of Systems Constitutional: Negative for chills and fever. Skin: Positive for itching and rash (Positive for clear, watery drainage. Denies warmth and purulent drainage. ). Objective Blood pressure 98/58, pulse 82, temperature 36.4 ?C (97.5 ?F), temperature source Tympanic, resp. rate 18, weight 60.8 kg (134 lb). Physical Exam Constitutional: She is oriented to person, place, and time and well-developed, well-nourished, and in no distress. Non-toxic appearance. She does not have a sickly appearance. No distress. HENT: Head: Normocephalic and atraumatic. Neurological: She is alert and oriented to person, place, and time. Skin: Skin is warm, dry and intact. Rash noted. Rash is vesicular (distribution linear ). She is not diaphoretic. ASSESSMENT/PLAN: 1. Allergic contact dermatitis due to plants, except food - ICD9: 692.6, ICD10: L23.7 - Oral Steriod tx -Prednisone taper - Topical steriod tx with Rx for steriod cream/ointment- see orders - discussed skin care of rash - follow up if symptoms persist or worsen. -discussed concerns taking prednisone with diabetes - PREDNISONE 10 MG TABLET - TRIAMCINOLONE ACETONIDE 0.1 % TOPICAL CREAM Prescription instructions reviewed with patient as applicable. Patient advised if symptoms do not improve or if symptoms worsen sooner, to contact the office for further evaluation by their primary care physician. Potential red flag symptoms discussed with the patient. Reviewed appropriate action plan to take if red flag symptoms occur. Patient agreeable to treatment plan. MICHELLE Limon APRN.CNP 04/25/2018 1:03 PM Signed Poison Jeff and Poison [place] Rashes caused by poison jeff and poison oak occur because of an allergy to those or similar plants. Although no one gets a rash after the first exposure to poison jeff or poison oak, most people eventually develop an allergy to these plants if they are exposed often enough. You may be unaware of where and. when you were exposed to poison jeff or poison oak. You may not have recognized the plant, or the plant oils may have been transferred to you from the fur of a dog, or from the bottom of shoes. The rash breaks out 1 to 4 days after exposure. The first rash is itchy red bumps, which then turn into small water blisters. Although scratching the rash makes it worse simply because of irritation, blister fluid that touches other skin will not cause the rash to spread there. However, until you take a warm soapy bath or shower, any remaining oil can spread from one area to another and cause new blisters. The treatment of poison jeff and poison oak requires attention to several different factors. First, you should try to discover where and how you were exposed to the plant, so that you can avoid it in .the future. Second, if you have not had a warm soapy shower, do it. Third, be sure your clothes have been washed and that shoes that have been touched by poison jeff or oak are cleaned, top and bottom, and not lying on clothes. Your doctor has probably given you cortisone, in either a cream or ointment form, if your rash is mild, or by pill or injection if your rash is more severe. Use your cortisone as directed, since discontinuing it too soon allows the rash to worsen. If your rash is very severe, you may be given cortisone to take orally (prednisone) or an injection to improve the skin initially, and an ointment or cream as a safe way to prevent worsening of the rash after initial improvement. Use the cream or ointment until your skin feels normal to the touch. The cortisone should be used regularly but sparingly twice daily and covered with a heavy, healing cream moisturizer to help seal irritating, tiny cracks in the skin. Common creams are Eucerin cream (not lotion), Aquaphor, or Vaseline petroleum jelly. When your skin has improved, you can switch to a cosmetically nicer, thinner lotion. Referring Provider: SELF [200] Allergies As of Date: 04/25/2018 Noted Allergy Reaction LIPITOR (ATORVASTATIN CALCIUM) 11/28/2017 17 - Myalgia Comments: High dose Date Reviewed: 04/25/2018 Reviewed by: Janes ([facility]) - Fully Assessed Reason for Visit: poison jeff arms, face and neck [Other] Cmt: x 2 days Primary Visit Diagnosis:Allergic contact dermatitis due to plants, except food [L23.7] Order(s):predniSONE (DELTASONE) 10 mg tabletTake 4 tabs daily x 3 days, then 3 tabs x 3 days, 2 tabs x 3 days, then 1 tab x3 days with food.Disp: 30 tabletRfl: 0 triamcinolone acetonide (KENALOG) 0.1 % creamApply 1 application to affected area three times daily. Apply sparingly to area for rash/itching.Disp: 80 gRfl: 0 Prescriptions as of 04/25/2018 Sig: COENZYME Q10 100 MG CAPSULE Take 100 mg by mouth twice da* GLUCOSAMINE 116 MG-CHONDROITI* Take by mouth once daily. ROSUVASTATIN 20 MG TABLET Take 1 tablet by mouth daily * BRILINTA 90 MG TABLET Take 1 tablet by mouth twice * ASPIRIN 81 MG CHEWABLE TABLET Take 1 tablet by mouth once d* METOPROLOL SUCCINATE ER 25 MG* Take 1 tablet by mouth once d* NITROGLYCERIN 0.4 MG SUBLINGU* Dissolve 1 tablet under the t* MULTIVITAMIN CAPSULE Take 1 capsule by mouth once * FERROUS SULFATE 325 MG (65 MG* Take 325 mg by mouth daily wi* ENALAPRIL MALEATE 2.5 MG TABL* Take half tablet daily Patient taking differently: Take 1/4 of a tablet daily INSULIN LISPRO (U-100) 100 UN* as directed in insulin pump u* BLOOD SUGAR DIAGNOSTIC STRIPS check blood sugars 6 times da* GLUCAGON (HUMAN RECOMBINANT) * INJECT SUBCUTANEOUSLY. USE A* SPIRONOLACTONE 25 MG TABLET Take 25 mg by mouth once agatha* INSULIN GLARGINE (U-100) 100 * Use as directed if pump fails* * BIOTIN ORAL Take by mouth. * INSULIN SYRINGE-NEEDLE U-100 * use as directed when pump amanda* PREDNISONE 10 MG TABLET Take 4 tabs daily x 3 days, t* TRIAMCINOLONE ACETONIDE 0.1 %* Apply 1 application to affect* Problem List As Of Date 04/25/2018 Noted Resolved Uncontrolled type 1 diabetes mellitus with pauline*INVALID FOR* More... 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 Although no one gets a rash after the first exposure to poison jeff or poison oak, most people eventually develop an allergy to these plants if they are exposed often enough. You may be unaware of where and. when you were exposed to poison jeff or poison oak. You may not have recognized the plant, or the plant oils may have been transferred to you from the fur of a dog, or from the bottom of shoes. The rash breaks out 1 to 4 days after exposure. The first rash is itchy red bumps, which then turn into small water blisters. Although scratching the rash makes it worse simply because of irritation, blister fluid that touches other skin will not cause the rash to spread there. However, until you take a warm soapy bath or shower, any remaining oil can spread from one area to another and cause new blisters. The treatment of poison jeff and poison oak requires attention to several different factors. First, you should try to discover where and how you were exposed to the plant, so that you can avoid it in .the future. Second, if you have not had a warm soapy shower, do it. Third, be sure your clothes have been washed and that shoes that have been touched by poison jeff or oak are cleaned, top and bottom, and not lying on clothes. Your doctor has probably given you cortisone, in either a cream or ointment form, if your rash is mild, or by pill or injection if your rash is more severe. Use your cortisone as directed, since discontinuing it too soon allows the rash to worsen. If your rash is very severe, you may be given cortisone to take orally (prednisone) or an injection to improve the skin initially, and an ointment or cream as a safe way to prevent worsening of the rash after initial improvement. Use the cream or ointment until your skin feels normal to the touch. The cortisone should be used regularly but sparingly twice daily and covered with a heavy, healing cream moisturizer to help seal irritating, tiny cracks in the skin. Common creams are Eucerin cream (not lotion), Aquaphor, or Vaseline petroleum jelly. When your skin has improved, you can switch to a cosmetically nicer, thinner lotion. Prescriptions ordered this encounter Disp Refills Start End PREDNISONE 10 MG TABLET 30 t* 0 04/25/2018 05/07/2018 Sig: Take 4 tabs daily x 3 days, then 3 tabs x 3 days, 2 tabs x 3 days, then 1 tab x3 days with food. TRIAMCINOLONE ACETONIDE 0.1 % TOPICA* 80 g 0 04/25/2018 Route: TOPICAL Sig: Apply 1 application to affected area three times daily. Apply sparingly to area for rash/itching. Encounter Status:Closed by JANES NEOL CNP on 04/25/18 BENNIE Observed: 01/08/2018 Status: COMPLETED Source: [place] 12:00 AM [facility] REPOSITORY Telephone ([facility]) MINDY JOSHUA ([id number]) 1980 F Date Time Provider Department 01/08/18 MIKEY SZYMANSKI During your visit today, we recorded the following information about you: Noel Miller, RN, RN 01/08/2018 4:05 PM Signed Patient states that she had a very stressful day and that she has developed chest pain that radiates to her back and neck. I instructed her to seek eval in nearest ED and she verbalizes understanding. Mikey Szymanski MD 01/08/2018 4:12 PM Signed Noted and agree. MD Noel Leigh RN, RN 01/10/2018 8:24 AM Signed Patient calls in today with similar complaints as noted below on 01-08. She states that she did not go to the hospital as instructed and she is wondering if you could just order her blood work to ANDquot;test the heartANDquot; and she would like that faxed to [facility] @ [phone]. She states she didn't want to go to the hospital. I let her know that I would ask you, but I was not certain of your reply as that may not be an adequate assessment of her symptoms. Mikey Szymanski MD 01/10/2018 9:00 AM Signed Blood work is not enough to evaluate her. She needs an EKG and an examination. This cannot be done in the office. She needs to go to the hospital and have her chest pain evaluated. She has had heart attacks in the past and should not ignore this pain. Remind her of the use of nitroglycerin. MD Noel Leigh, RN, RN 01/10/2018 11:39 AM Signed Unable to reach patient, unable to leave the [facility]. Noel Miller RN, RN 01/10/2018 4:21 PM Signed Patient verbalizes understanding. Allergies As of Date: 01/08/2018 Noted Allergy Reaction LIPITOR (ATORVASTATIN CALCIUM) 11/28/2017 17 - Myalgia Comments: High dose Date Reviewed: 01/06/2018 Reviewed by: Anitra ([employer]) [place] - Fully Assessed Reason for Visit: Patient Update [1234] Prescriptions as of 01/08/2018 Sig: COENZYME Q10 100 MG CAPSULE Take 100 mg by mouth twice da* GLUCOSAMINE 116 MG-CHONDROITI* Take by mouth once daily. ROSUVASTATIN 20 MG TABLET Take 1 tablet by mouth daily * BRILINTA 90 MG TABLET Take 1 tablet by mouth twice * ASPIRIN 81 MG CHEWABLE TABLET Take 1 tablet by mouth once d* METOPROLOL SUCCINATE ER 25 MG* Take 1 tablet by mouth once d* NITROGLYCERIN 0.4 MG SUBLINGU* Dissolve 1 tablet under the t* MULTIVITAMIN CAPSULE Take 1 capsule by mouth once * FERROUS SULFATE 325 MG (65 MG* Take 325 mg by mouth daily wi* ENALAPRIL MALEATE 2.5 MG TABL* Take half tablet daily Patient taking differently: Take 1/4 of a tablet daily INSULIN LISPRO 100 UNIT/ML PIERRE* as directed in insulin pump u* BLOOD SUGAR DIAGNOSTIC STRIPS check blood sugars 6 times da* GLUCAGON (HUMAN RECOMBINANT) * INJECT SUBCUTANEOUSLY. USE A* SPIRONOLACTONE 25 MG TABLET Take 25 mg by mouth once agatha* INSULIN GLARGINE 100 UNIT/ML * Use as directed if pump fails* * BIOTIN ORAL Take by mouth. * INSULIN SYRINGE-NEEDLE U-100 * use as directed when pump amanda* Problem List As Of Date 01/08/2018 Noted Resolved Uncontrolled type 1 diabetes mellitus with pauline*INVALID FOR* More... 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] INVALID FOR* Left shoulder pain [M25.512] INVALID FOR* Elevated testosterone level in female [R79.89] INVALID FOR* Non-rheumatic tricuspid valve insufficiency [I3*INVALID FOR* Family history of ischemic heart disease before*INVALID FOR* Status post insertion of drug-eluting stent int*INVALID FOR* Encounter Status:Closed by NOEL MILLER on 01/08/18 PROGRESS Observed: 01/06/2018 Status: COMPLETED Source: [place] 3:53 PM [facility] REPOSITORY HNO ID: [id number] Author: Anitra Figueroa Service: (none) Author Type: Nurse Practitioner Type: Progress Notes Filed: 01/06/2018 4:28 PM Note Text: Mindy Joshua is a 37 year old who presents for her annual gynecologic exam with complaints, no period since end of oct/begin nov. Menses: cycles every 28 days and 3 days of flow. Contraception: tubal ligation HPV vaccine: No Last Pap: 2016 normal HPV: negative History of abnormal pap: No Last mammogram: never Sexually active: Yes Pain with intercourse: No Postcoital bleeding: No Hot flashes: No Night sweats: No Vaginal dryness: No Obstetric History T2 L2 SAB0 TAB0 Ectopic0 Multiple0 Live Births0 PAST MEDICAL HISTORY Diagnosis Date - Hypercholesteremia - AK (myocardial infarction) 02/2016 - Type I (juvenile type) diabetes mellitus without mention of complication, uncontrolled since age 11 PAST SURGICAL HISTORY Procedure Laterality Date - DELIVERY ONLY 2004, 2006 , low cervical - COLONOSCOP W/ OR W/O RUST SPEC 06/04/08 - COLONOSCOP W/ OR W/O RUST SPEC 10/31/2011 Colonoscopy - HEART CATHETERIZATION 03/16/2016 with stent placement - MANIPULATION-SHOULDER DISLOCATION W/ANESTH - PAST SURGICAL HISTORY OF 2000 [place] - PAST SURGICAL HISTORY OF Adnoids Removed - RECONSTRUCT PROX HUMERAL IMPLANT Right 10/2016 Arthroplasty, shoulder FAMILY HISTORY Problem Relation Age of Onset - Ischemic Heart Disease Mother - Diabetes Mother - Heart Maternal Grandfather - Colon Cancer Father SOCIAL HISTORY Social History Substance Use Topics - Smoking status: Never Smoker - Smokeless tobacco: Never Used - Alcohol use No REVIEW OF SYSTEMS Abdomen: No abdominal pain, nausea, vomiting, diarrhea, or constipation. No bloating, early satiety, indigestion, or increased flatulence. Bladder: No dysuria, gross hematuria, urinary frequency, urinary urgency, or incontinence. Breast: No breast lumps, nipple d/c, overlying skin changes, redness or skin retraction. Allergies and current medication updated:Yes EXAM: There were no vitals taken for this visit. GENERAL: pleasant, female in no apparent distress HEENT: Normocephalic, atraumatic, mucus membranes moist and no lesions NECK: Supple, full range of motion, no adenopathy and thyroid normal DERMATOLOGY: Normal, without lesions, non-icteric and non-hirsute BREAST: soft, non-tender, symmetric, no dominant mass, normal nipple-areolar complex, no lymphadenopathy and no nipple discharge CHEST: Normal inspiratory effort ABDOMEN: soft, non-tender and no masses PELVIC: external genitalia normal, normal Bartholin's glands, urethra, Dent's glands, no vulvar lesions, no cervical lesions, good vaginal support, physiologic discharge present, normal appearing perineal body and perianal region, well estrogenized BIMANUAL: uterus normal size, shape and consistency, no adnexal masses, non-tender and no cervical motion tenderness RECTOVAGINAL: deferred. NEURO: alert and oriented x3,exam grossly non-focal EXTREMITIES: normal ASSESSMENT/PLAN: 1) Health maintenance: Pap/HPV up to date. Mammogram starting age 40. Nutrition, exercise and routine health maintenance exams reviewed. Calcium/Vitamin D supplementation information provided. 2) Contraception: tubal ligation. Contraceptive options reviewed and information provided. 3) STD screening: Declined STD check. 4) Follow up one year or sooner as needed 5) b/o test- negative ANITRA FIGUEROA CNP ALLERGIES ALLERGIES DATE TYPE / CODE NAME / CODE REACTION SEVERITY SOURCE 12/09/2018 Drug No Known Unknown [place] Allergy/416 Allergies/[id number] [facility] [id number](SNOM 8(RXNORM) Hospital ED CT) Repository 11/28/2017 DRUG ATORVASTATIN Myalgia [facility] INGREDI/419 CALCIUM [facility] 563531(SNOM Repository ED CT) [id number] [facility]STATIN [facility] Repository ENCOUNTERS ENCOUNTERS ADMIT/DISCHARGE ACCOUNT NUMBER ADMITTING ENCOUNTER LOCATION SOURCE CLASS 12/10/2018/12/10/19 [id number] Ambulatory [address] ding:ENRoom: Repository AC17 11/11/2018 [id number] Ambulatory [facility] ding:MASS Repository 10/31/2018 [id number] Ambulatory BBuilding:RA [facility] Repository 10/30/2018/10/31/20 [id number] Ambulatory [place] [facility] [place] Repository 08/19/2018/08/19/20 [id number] Ambulatory [place] 18 [facility] [place] Repository 08/09/2018/08/09/20 [id number] Ambulatory [place] 18 [facility] [place] Repository 08/05/2018/08/06/20 [id number] Ambulatory [place] [facility] [place] Repository 08/02/2018/08/02/20 [id number] Ambulatory [place] 18 [facility] [place] Repository 05/20/2018/05/20/20 [id number] Ambulatory [place] 18 [facility] [place] Repository 05/20/2018/05/20/20 [id number] Ambulatory [place] 18 [facility] [place] Repository 05/20/2018 [id number] Ambulatory [facility] MEDICAL Repository CENTERBuildi ng:CAGWS 04/29/2018/04/30/20 [id number] Ambulatory [place] [facility] [place] Repository 04/25/2018/04/25/20 [id number] Ambulatory [place] 18 [facility] [place] Repository 01/06/2018/01/10/20 [id number] Ambulatory [address] [place] Repository PAYERS PAYERS ENCOUNTER GUARANTOR PAYER SUBSCRIBER SOURCE 12/10/2018 KIRSTIE Pratt [id number] [facility] Number: [id number] [id number] Repository [id number]: [phone]) Date:3862-04-54[phone] () [address] [place] [phone]: 12/10/2018 Secondary NOT GIVENUNK Terence Insurance:SELF PAY [facility] Number: Effective Repository Date:2018-10-31 11/11/2018 Kirstie Arenas Primary NOT GIVENUNK [place] [id number] Insurance:SELF PAY [place] Number: Effective Repository [id number]: ([phone]) Date:2017-06-17 [phone] () 10/31/2018 MINDY [facility] K37Tijolg Number: [id number] [facility] [id number] [address] [place] [address] Date:2018-10-31 [place], [place] [address]Fiz: [phone] [phone]: Name:MEGA PERAZA [phone] ()Tel: [phone], [place] () (wp) [phone]: [phone] 05/20/2018 [facility] icy Number: [id number] Repository [facility] [id number] [place], [place] Date: [id number]: ()
== END 2018-12-10 14:12 | disposition home or self-care (01) ==
LOC: EN 11:34 → AC 11:37
PROVIDERS: Family Provider Nurse Practitioner Family; PCP Nurse Practitioner Family; Referring Provider Surgery; Visit Provider Surgery
PROC: 0DJD8ZZ Inspection of Lower Intestinal Tract, Via Natural or Artificial Opening Endoscopic (ICD-10-PCS; CPT 45378; principal; 2018-12-10 12:25)
DX: Z12.11 Encounter for screening for malignant neoplasm of colon (principal); Z80.0 Family history of malignant neoplasm of digestive organs; E78.00 Pure hypercholesterolemia, unspecified; I25.10 Atherosclerotic heart disease of native coronary artery without angina pectoris; I25.2 Old myocardial infarction; Z95.5 Presence of coronary angioplasty implant and graft; E10.9 Type 1 diabetes mellitus without complications; Z96.41 Presence of insulin pump (external) (internal); Z79.4 Long term (current) use of insulin; Z79.82 Long term (current) use of aspirin; Z79.899 Other long term (current) drug therapy; Z79.02 Long term (current) use of antithrombotics/antiplatelets
CPT/HCPCS: 45378; 82962; J7120

== ENCOUNTER 2019-01-16 19:10 | Emergency (ER) | payer OTHER, SELFPAY ==
[2019-01-16 19:11] VITALS: BP 99/55; PULSE 74; RESP 16; TEMP 35.7; O2SAT 100; BMI 24.0
[2019-01-16 19:26] LABS: Bedside Glucose 146 mg/dL (70-110)
--- NOTE | 2019-01-16 19:40 | ED.RN ---
PATIENT STATES SHE FEELS LIKE HER SUGAR IS DROPPING AGAIN AND STARTED TO VOMIT. RECHECKED BLOOD SUGAR-70. DR. KENNEDY NOTIFIED. NEW ORDER. WILL CONTINUE TO MONITOR.
[2019-01-16 19:41] LABS: Bedside Glucose 70 mg/dL (70-110)
[2019-01-16] MEDS: Dextrose 50%-Water 25 GM/50 ML DISP.SYRIN IV (19:43)
[2019-01-16] MEDS: Ondansetron 4 MG/2 ML Vial IV (19:47)
[2019-01-16 19:49] VITALS: BP 100/68; PULSE 67; RESP 16; O2SAT 100
--- NOTE | 2019-01-16 20:07 | CT_ITS ---
STUDY: CT BRAIN WITHOUT CONTRAST REASON FOR EXAM: Female, 38 years old. Dizziness. Hypoglycemia. Hypertension. RADIATION DOSAGE (If Supplied By Facility): CTDIvol = ( 44.99 ) mGy, DLP = ( 812.98 ) mGycm TECHNIQUE: Transaxial CT imaging of the brain was performed without administration of intravenous contrast material. Individualized dose optimization techniques were used for this CT. COMPARISON: None. FINDINGS: Normal soft tissue structures. Normal calvarium. Normal size ventricles and extra-axial spaces for the patient's age. Normal white matter tracts of the cerebral hemispheres. Normal basal ganglia and thalami. Normal brainstem. Normal cerebellum. There is no intracranial hemorrhage. There are no findings of an acute ischemic infarction. Normal visualized paranasal sinuses. CT/Brain/Head without Contrast IMPRESSION: Normal unenhanced CT scan of the brain. Electronically Signed: Carlo Galeana DO at 22:36 EST Tel [phone], Service support ,
[2019-01-16 20:11] LABS: Bedside Glucose 142 mg/dL (70-110)
[2019-01-16 20:28] LABS: Absolute Lymphocyte Count 1.31 X10^3/ul (0.83-4.51); Absolute Neutrophil Count 9.8 X10^3/uL (2.0-7.7); Basophil# 0.02 X10^3/uL; Basophil% 0.2 % (0-1); Eosinophil# 0.03 X10^3/uL; Eosinophils% 0.3 % (0-5); Hemoglobin 12.3 g/dl (12.0-15.0); Lymphocyte # 1.31 X10^3/ul (4.0); Lymphocyte % 11.6 % (19-41); Mean Corp Hgb Conc 33.2 g/gl (32-36); Mean Corpuscular Hgb 29.9 pg (27.0-32.0); Mean Corpuscular Volume 89.8 fL (81-99); Mean Platelet Vol. 10.1 fl (6.2-12.0); Monocyte# 0.05 X10^3/uL; Monocyte% 0.4 % (0-10); Neutrophil # 9.82 X10^3/uL (2.7-7.7); Neutrophil % 87.2 % (47-70); POSITIVE COUNT NO; POSITIVE DIFFERENTIAL NO; POSITIVE MORPHOLOGY NO; Platelet Count 178 K/mm3 (150-450); RBC Distribution Width CV 12.4 % (11.6-14.6); Red Blood Count 4.12 M/mm3 (4.2-5.4); White Blood Count 11.3 K/mm3 (4.4-11.0)
[2019-01-16 20:31] LABS: Bedside Glucose 101 mg/dL (70-110)
[2019-01-16] MEDS: Dextrose 5%/0.9% NaCl 1,000 ML 125 ML IV (20:36)
[2019-01-16 20:39] LABS: Anion Gap 6 (5-15); BUN 19 mg/dL (7-18); BUN/Creat Ratio 25.9 RATIO (10-20); Chloride 107 mmol/L (98-107); Creatinine, Serum 0.73 mg/dL (0.55-1.02); EST Glomerular Filtration Rate 93 mL/min (>60); Est Glom Filt Rate - Afr Amer 113 mL/min (>60); Estimated Creatinine Clearance 88.46 ml/min; Glucose 109 mg/dL (74-106); Potassium 3.8 mmol/L (3.5-5.1); Sodium Level 139 mmol/L (136-145)
[2019-01-16 20:48] LABS: Pregnancy, Serum, hCG Quali. NEGATIVE Negative (0-9 Nonpreg)
[2019-01-16 20:51] LABS: Bedside Glucose 94 mg/dL (70-110)
[2019-01-16 21:08] LABS: Bacteria 0 SEEN /hpf (None Seen); Color, Urine Yellow (Yellow); Glucose, Dipstick 1000 mg/dl (Normal); Ketone-Dipstick Negative (Negative); Leukocyte Esterase-Dipstick Negative /ul (Negative); Mucous, Urine 0 SEEN /hpf (<or=2+); Nitrite-Dipstick Negative (Negative); Occult Blood-Urine Negative /ul (Negative); Protein-Dipstick 15 mg/dl (Negative); Red Blood Cells-Urine 0 SEEN /hpf (0-5); Urine Bilirubin Dipstick Negative (Negative); Urine Clarity Clear (Clear); Urine Urobilinogen 1 mg/dl (Normal); White Blood Cells 0 SEEN /hpf (0-5)
[2019-01-16 21:13] LABS: Internal QC Validated? YES +Cl - CLEAR BKGD
[2019-01-16 21:14] LABS: Pregnancy, Urine Negative Negative
[2019-01-16 21:16] VITALS: BP 102/66; PULSE 75; RESP 16; O2SAT 98
[2019-01-16 21:26] LABS: Bedside Glucose 105 mg/dL (70-110)
[2019-01-16 21:33] LABS: Squamous Epithelial Cells - UA 0-5 SEEN /hpf (5-10)
[2019-01-16 21:34] LABS: Uric Acid Crystals Ur 1+ /hpf (<or=1+)
[2019-01-16 22:10] LABS: Bedside Glucose 133 mg/dL (70-110)
--- NOTE | 2019-01-16 23:09 | ED.VISSUMM ---
- ER Visit Summary Date of Service: 01/16/19 Chief Complaint: Hypoglycemia History of Present Illness: The patient is a 38 F who presents with low blood sugar at home. states blood sugar went down to 25 at home. states he administered a milligram of glucagon which improved her blood sugar to 40 and she became a little more awake and alert. Patient's blood sugar then dropped again and he gave a another milligram of glucagon at home. EMS administered 1 amp of D50. Patient's blood sugar improved after this. Upon arrival here to the emergency department patient's blood sugar began to drop again. Patient was given another amp of D50. Patient admits to some nausea and vomiting. Patient also admits to some dizziness. Patient states the dizziness feels like the room is spinning. Patient denies any hearing changes or tinnitus. Patient denies any headaches. Patient is on a subcu insulin pump with Humulin R. Physical Examination: Vital signs are stable. Patient is afebrile. Patient is in no acute distress. Cranial nerves II through XII are intact. Strength is 5/5 bilaterally upper and lower extremities. There are no sensory deficits noted. Pupils are equal, round, and reactive to light bilaterally. Extraocular muscles are intact. There is no nystagmus noted. Heart was regular rate and rhythm. Lungs are clear and equal bilateral. Abdomen is soft nontender. The remaining physical exam is within normal limits. Test Results: Due to the patient's vertiginous symptoms, CT scan of the brain was obtained and was negative. CBC, basic metabolic profile, and hCG were obtained and were normal. Emergency Department Course and Treatment: Patient was given 1 amp of D50 upon arrival to the emergency department. Patient was started on D5 normal saline IV drip. Patient's blood sugar remained normal. Blood sugar prior to discharge was 133. Patient was instructed to eat a regular diet. Patient was instructed to follow-up with her primary care physician in 5-7 days. Patient and her understood and were agreeable with the plan. All questions were answered. Disposition: Discharge home Impression: Hypoglycemia This note was generated with GridAntsation software. It may contain incorrect words, spelling, and punctuation that were not noted in review of the chart prior to signing ED Disposition - Plan for ED Patient: Disposition: Home or Assisted Living Diagnosis: Hypoglycemia Instructions: ED Diabetes Hypoglycemia Insulin React Referrals: Waqar Rueda, GENERAL SCIENCE TEACHER-C [Primary Care Provider] -
[2019-01-16 23:20] VITALS: BP 104/61; PULSE 80; RESP 16; RESP 18; O2SAT 97
== END 2019-01-16 23:25 | disposition home or self-care (01) ==
PROVIDERS: Emergency Provider Emergency Medicine; Family Provider Nurse Practitioner Family; PCP Nurse Practitioner Family
DX: E11.649 Type 2 diabetes mellitus with hypoglycemia without coma (principal); I25.2 Old myocardial infarction; E78.00 Pure hypercholesterolemia, unspecified; Z79.4 Long term (current) use of insulin; Z79.899 Other long term (current) drug therapy; Z79.82 Long term (current) use of aspirin
CPT/HCPCS: 70450; 80048; 81001; 81025; 82962; 84703; 85025; 96365; 96366; 96375; 99285; J7030; A4216; J2405

== ENCOUNTER → 2019-02-16 13:42 | Outpatient (CLI) | payer OTHER, SELFPAY ==
[2019-02-16 16:11] LABS: Ferritin 97 ng/mL (8-252); Follicle Stimulating Hormone 4.2 mIU/mL; Luteinizing Hormone 4.9 mIU/mL; T4 Free Direct 0.79 ng/dL (0.76-1.46); Thyroid Stim Hormone (TSH) 0.98 uIU/mL (0.358-3.74)
[2019-02-16 16:13] LABS: T3 Total - Triiodothyronine 0.66 ng/mL (0.6-1.81)
[2019-02-16 17:48] LABS: Absolute Lymphocyte Count 1.25 X10^3/ul (0.83-4.51); Absolute Neutrophil Count 3.9 X10^3/uL (2.0-7.7); Basophil# 0.03 X10^3/uL; Basophil% 0.5 % (0-1); Eosinophil# 0.06 X10^3/uL; Eosinophils% 1.1 % (0-5); Hematocrit 38.3 % (37-47); Hemoglobin 12.6 g/dl (12.0-15.0); Lymphocyte # 1.25 X10^3/ul (4.0); Lymphocyte % 22.3 % (19-41); Mean Corp Hgb Conc 32.9 g/gl (32-36); Mean Corpuscular Hgb 29.6 pg (27.0-32.0); Mean Corpuscular Volume 89.9 fL (81-99); Mean Platelet Vol. 10.4 fl (6.2-12.0); Monocyte# 0.39 X10^3/uL; Neutrophil # 3.88 X10^3/uL (2.7-7.7); Neutrophil % 69.1 % (47-70); Platelet Count 199 K/mm3 (150-450); RBC Distribution Width CV 12.4 % (11.6-14.6); Red Blood Count 4.26 M/mm3 (4.2-5.4); White Blood Count 5.6 K/mm3 (4.4-11.0)
[2019-02-16 18:04] LABS: POSITIVE COUNT NO; POSITIVE DIFFERENTIAL NO; POSITIVE MORPHOLOGY NO
== END ==
PROVIDERS: Family Provider Nurse Practitioner Family; PCP Nurse Practitioner Family; Referring Provider Dermatology Pediatric Dermatology; Visit Provider Dermatology Pediatric Dermatology
DX: E03.9 Hypothyroidism, unspecified (principal)
CPT/HCPCS: 36415; 82728; 83001; 83002; 84439; 84443; 84480; 85025

== ENCOUNTER 2019-04-15 08:50 | Day surgery (SDC) | payer OTHER, SELFPAY ==
[2019-04-08 13:44] VITALS: BMI 23.3
--- NOTE | 2019-04-08 15:30 | RAD_ITS ---
STUDY: X-RAY CHEST REASON FOR EXAM: Female, 38 years old. Chest pain. TECHNIQUE: PA and lateral views of the chest. COMPARISON: None. FINDINGS: The lungs are clear and expanded. There is no demonstrated pleural abnormality. Normal size heart. Normal mediastinum and kim. Normal visualized pulmonary arteries. Normal visualized aortic arch and descending thoracic aorta. Normal visualized thoracic spine. Normal visualized ribs, clavicles, and shoulders. There is no demonstrated abnormality of the visualized soft tissue structures of the upper abdomen. RAD/Chest PA and Lateral IMPRESSION: Normal x-ray examination of the chest. Electronically Signed: Lance Beasley, at 15:54 EDT , Service support ,
[2019-04-08 16:32] LABS: Absolute Lymphocyte Count 1.23 X10^3/ul (0.83-4.51); Absolute Neutrophil Count 3.1 X10^3/uL (2.0-7.7); Basophil# 0.02 X10^3/uL; Basophil% 0.4 % (0-1); Eosinophil# 0.09 X10^3/uL; Eosinophils% 1.8 % (0-5); Hematocrit 39.9 % (37-47); Hemoglobin 13.4 g/dl (12.0-15.0); Lymphocyte # 1.23 X10^3/ul (4.0); Lymphocyte % 24.8 % (19-41); Mean Corp Hgb Conc 33.6 g/gl (32-36); Mean Corpuscular Hgb 29.1 pg (27.0-32.0); Mean Corpuscular Volume 86.7 fL (81-99); Mean Platelet Vol. 10.7 fl (6.2-12.0); Monocyte# 0.48 X10^3/uL; Monocyte% 9.7 % (0-10); Neutrophil # 3.13 X10^3/uL (2.7-7.7); Neutrophil % 63.3 % (47-70); POSITIVE COUNT NO; POSITIVE DIFFERENTIAL NO; POSITIVE MORPHOLOGY NO; Platelet Count 194 K/mm3 (150-450); RBC Distribution Width CV 12.1 % (11.6-14.6); RBC Distribution Width SD 38.7 fl (35.1-43.9)
[2019-04-08 16:45] LABS: International Normalized Ratio 1.1; Prothrombin Time (Protime)PT. 14.4 SECONDS (11.7-14.9)
[2019-04-08 16:46] LABS: Partial Thromboplast Time 28.6 Seconds (24.1-36.2)
[2019-04-08 16:54] LABS: Internal QC Validated? YES +Cl - CLEAR BKGD; Pregnancy, Serum, hCG Quali. NEGATIVE Negative
[2019-04-08 17:00] LABS: Anion Gap 5 (5-15); BUN 14 mg/dL (7-18); BUN/Creat Ratio 16.1 RATIO (10-20); Calcium,Total 8.8 mg/dL (8.5-10.1); Chloride 105 mmol/L (98-107); Creatinine, Serum 0.87 mg/dL (0.55-1.02); EST Glomerular Filtration Rate 77 mL/min (>60); Est Glom Filt Rate - Afr Amer 93 mL/min (>60); Glucose 243 mg/dL (74-106); Potassium 4.2 mmol/L (3.5-5.1); Sodium Level 139 mmol/L (136-145)
[2019-04-14 09:37] VITALS: BMI 23.3
--- NOTE | 2019-04-29 14:55 | CL.I_ITS ---
Patient Name: MINDY TRISTAN Study Date: 04/15/2019 Performing: Negar Cook MD Ht: 64.17 inches 163 cm : 1980 Wt: 136.69 lbs 62 kg Age: 38 Gender: female BSA: 1.67 Amended PROCEDURE(S) PERFORMED NZ67-BJX/COR/LV RY51-NDG, CORONARY OR GRAFT, INITIAL VESSEL CLINICAL PROFILE AND CO-MORBIDITIES Indications: Worsening Angina Heart Failure: None Stress/Imaging Stress/Image Study Performed: No CAD Presentations: Unstable angina. CONCLUSIONS CAD as described Preserved LV systolic function No significant or MR FFR in the LAD was consistent with stenosis should be treated medically at this time. RECOMMENDATIONS FFR of LAD Risk factor modification ASA Indefinitley Routine post interventional care DESCRIPTION OF PROCEDURE The patient arrived to the procedure lab. The risks and benefits of the procedure as well as a full d escription of our services here and lack of surgical backup were fully explained to the patient and/o r their significant other prior to the catheterization. The Timeout was completed, verifying the gustabo ect patient and procedure. The patient's procedural site was prepped and draped in the usual fashion. Local anesthetic was given subcutaneously to right radial region with Lidocaine 2%. Using a modified Seldinger technique, arterial access was obtained via the right radial artery, a 6Fr sheath was inse rted.. Left Coronary Artery selective angiography was performed in multiple views using a 4 Fr. JL3. 5 catheter. Left Ventriculography was performed in KELLER projection using a 5 Fr. JR 4. LV to AO pullba ck pressures were then recorded. Right Coronary Artery selective angiography was then performed in mu ltiple views using a 5 Fr. JR 4 catheterThe images were reviewed and options discussed. A decision was then made to proceed with an Intervention, IVUS or other adjunct procedure. XB 3.5 Guide catheter was inserted and engaged into the LCA. The FFR/iFR wire was inserted. FFR R atio Baseline: 1.0 Adenosine was then given per protocol. Pressures and FFR/iFR were then recorded. F FR Ratio post Adenosine: 0.84 The FFR/iFR wire was then removed. The arterial sheath was pulled and a TR Band was applied for hemostasis 11cc air inserted CORONARY ANGIOGRAPHY DOMINANCE: Right Dominant LEFT HEART ASSESSMENT Left Ventricular Ejection Fraction: by LV Gram 70 % Normal LV wall motion LEFT MAIN: Angiographically normal LEFT ANTERIOR DESCENDING ARTERY: MID LAD: Instent restenosis 60 % CIRCUMFLEX ARTERY: Angiographically normal RIGHT CORONARY ARTERY: PROX RCA: 40 % Stenosis VALVE FINDINGS: No Aortic Valve Stenosis No Mitral Insufficency INTERVENTION INFORMATION LESION SITE: LAD (Mid) Lesion Devices: Cordis 6 Fr XB3.5 100cm Guide Catheter IGT Devices ( Formerly Collplant) Coronary FFR Wire COMPLICATIONS No Complications PROCEDURE MEDICATIONS Versed 1 mg IV Fentanyl 50 mcg IV Versed 1 mg IV Oxygen: 2 L/min via nasal cannula Adenosine drip for FFR 17.4 ml IV @ 04/15/2019 11:29:38 Heparin given IA 04/15/2019 11:08:51 Heparin 2000 unit(s) IV 04/15/2019 11:18:36 Verapamil 2.5mg, Ntg 200mcgs, 3000 units of Heparin given IA 04/15/2019 11:08:51 SUMMARY OF HEMODYNAMIC DATA Time AIR REST ECG 09:37:12 AO 101/66 (82) SA 11:10:25 LV 104/-10, 8 11:15:12 LV 107/-8, 8 11:15:19 LV 99/-13, 7 11:15:55 LVp 95/-7, 7 11:16:03 AOp 88/46 (70) 11:16:08 Signed By Negar Cook MD On 04/15/2019 12:10:25 Negar Cook MD
== END 2019-04-15 14:15 | disposition home or self-care (01) ==
LOC: CLSP 08:51
PROVIDERS: Family Provider Nurse Practitioner Family; PCP Nurse Practitioner Family; Referring Provider Specialist; Visit Provider Specialist
DX: I25.119 Atherosclerotic heart disease of native coronary artery with unspecified angina pectoris (principal); I10 Essential (primary) hypertension; E11.9 Type 2 diabetes mellitus without complications; I25.2 Old myocardial infarction; E78.00 Pure hypercholesterolemia, unspecified; Z98.61 Coronary angioplasty status; Z79.4 Long term (current) use of insulin; Z79.899 Other long term (current) drug therapy; Z79.82 Long term (current) use of aspirin
CPT/HCPCS: 36415; 71046; 80048; 84484; 84703; 85025; 85610; 85730; 93458; 93571; 99152; 99153; J0153; J7040; Q9967; C1769; C1887; C1894

== ENCOUNTER → 2019-06-17 | Outpatient (CLI) | payer OTHER, SELFPAY ==
[2019-05-19 11:07] VITALS: BMI 22.6
--- NOTE | 2019-06-17 08:02 | ECHOD_ITS ---
Reason For Study: Dizziness Procedure This was a 2D Doppler, Color Flow transthoracic echocardiogram. Exam performed in department. Left Ventricle Normal size and thickness. The estimated ejection fraction is 55 %. Normal diastology for age. No regional wall motion abnormalities noted. Right Ventricle Normal RV size. Normal systolic function. Atria Normal left atrium. Normal right atrium. No doppler evidence for ASD. Bubble contrast study negative for right to left interatrial shunt. Mitral Valve There is no mitral valve stenosis. Trivial mitral valve insufficiency. Tricuspid Valve There is no tricuspid stenosis. Trivial tricuspid valve insufficiency. Pulmonary artery systolic pressure is 25 mmHg. Aortic Valve Trisinus/trileaflet aortic valve. There is no aortic stenosis. No aortic valve insufficiency. Pulmonic Valve There is no pulmonic valvular stenosis. Trivial pulmonic valve insufficiency. Great Vessels Normal aortic root. Pericardium/Pleural No pericardial effusion. Medication Performed a rapid injection of agitated mix of 9 cc saline and 1cc air to assess for atrial septal defect. MMode/2D Measurements & Calculations LVIDd: 3.7 cm IVSd: 0.91 cm Ao root diam: 2.7 cm LVIDs: 2.6 cm LVPWd: 0.85 cm RVDd: 2.6 cm FS: 29.5 % LAV(MOD-bp): 24.7 ml LVAd ap4: 21.4 cm2 SV(MOD-sp4): 37.0 ml LAV(MOD-bp) Indexed: 14.9 ml/m2 EDV(MOD-sp4): 56.7 ml LAV(MOD-sp2): 22.5 ml EDV(sp4-el): 55.9 ml LAV(MOD-sp4): 27.0 ml LVAs ap4: 10.8 cm2 ESV(MOD-sp4): 19.7 ml ESV(sp4-el): 19.9 ml EF(MOD-sp4): 65.3 % EF(sp4-el): 64.4 % SV(sp4-el): 36.0 ml LA A4 area: 12.6 cm2 LA dimension(2D): 3.0 cm RA A4 area: 10.9 cm2 Doppler Measurements & Calculations MV E max sean: 66.3 cm/sec Lat Peak E' Sean: 17.4 cm/sec Med Peak E' Sean: 12.1 cm/sec MV A max sean: 56.3 cm/sec E/E' lat: 3.8 E/E' med: 5.5 MV E/A: 1.2 Ao V2 max: 114.5 cm/sec LV V1 max: 100.3 cm/sec PA V2 max: 79.4 cm/sec Ao max P.2 mmHg LV V1 max P.0 mmHg Ao V2 mean: 83.0 cm/sec Ao mean P.9 mmHg Ao V2 VTI: 22.8 cm PI end-d sean: 68.2 cm/sec TR max sean: 229.8 cm/sec TR max P.1 mmHg Interpretation Summary The estimated ejection fraction is 55 %. Normal diastology for age. Trivial mitral valve insufficiency. Pulmonary artery systolic pressure is 25 mmHg. Ordering Physician: Negar Cook Referring Physician: Waqar Rueda Performed By: Jennifer Ash, GIBSON, RVT
== END | disposition home or self-care (01) ==
LOC: CVS 08:00
PROVIDERS: Family Provider Nurse Practitioner Family; PCP Nurse Practitioner Family; Referring Provider Specialist; Visit Provider Specialist
DX: R42 Dizziness and giddiness (principal)
CPT/HCPCS: 93306; A4216

== ENCOUNTER → 2019-07-18 | Outpatient (CLI) | payer OTHER, SELFPAY ==
[2019-05-19 11:07] VITALS: BMI 22.6
[2019-07-18 12:29] LABS: Anion Gap 4 (5-15); BUN 15 mg/dL (7-18); BUN/Creat Ratio 16.9 RATIO (10-20); Calcium,Total 8.5 mg/dL (8.5-10.1); Chloride 107 mmol/L (98-107); Creatinine, Serum 0.88 mg/dL (0.55-1.02); EST Glomerular Filtration Rate 75 mL/min (>60); Est Glom Filt Rate - Afr Amer 91 mL/min (>60); Glucose 208 mg/dL (74-106); Potassium 4.1 mmol/L (3.5-5.1); Sodium Level 139 mmol/L (136-145)
== END | disposition home or self-care (01) ==
LOC: LAB 10:59
PROVIDERS: Family Provider Nurse Practitioner Family; PCP Nurse Practitioner Family; Referring Provider Nurse Practitioner Family; Visit Provider Nurse Practitioner Family
DX: E87.5 Hyperkalemia (principal)
CPT/HCPCS: 36415; 80048

== ENCOUNTER → 2020-04-04 15:02 | Outpatient (CLI) | payer OTHER, SELFPAY ==
[2020-04-04 12:02] VITALS: BMI 22.6
[2020-04-04 15:40] LABS: Microalbumin,Random Urine 6.7 mg/L (NO RANGE EST.)
[2020-04-04 15:55] LABS: ALB/GLOB Ratio 0.9 RATIO (0.9-2.4); AST(SGOT) 25 U/L (15-37); Alanine Aminotransfer ALT/SGPT 28 U/L (13-56); Albumin, Serum 3.7 g/dL (3.2-5.0); Alkaline Phosphatase 64 U/L (45-117); Anion Gap 5 (5-15); BUN 16 mg/dL (7-18); BUN/Creat Ratio 21.6 RATIO (10-20); Calcium,Total 8.9 mg/dL (8.5-10.1); Chloride 106 mmol/L (98-107); Cholesterol 152 mg/dL (200); Creatinine, Serum 0.74 mg/dL (0.55-1.02); EST Glomerular Filtration Rate 92 mL/min (>60); Est Glom Filt Rate - Afr Amer 111 mL/min (>60); Globulin 3.9 g/dL (2.2-4.2); Glucose 116 mg/dL (74-106); High Density Lipoprotein 87 mg/dL; Potassium 4.2 mmol/L (3.5-5.1); Protein, Total 7.6 g/dL (6.4-8.2); Sodium Level 139 mmol/L (136-145); Thyroid Stim Hormone (TSH) 1.43 uIU/mL (0.358-3.74); Triglycerides 47 mg/dL; Very Low Density Lipoprotein 9 mg/dL (5-40)
== END ==
PROVIDERS: PCP Nurse Practitioner Family; Referring Provider Internal Medicine Endocrinology, Diabetes & Metabolism; Visit Provider Internal Medicine Endocrinology, Diabetes & Metabolism
DX: E11.9 Type 2 diabetes mellitus without complications (principal); I25.10 Atherosclerotic heart disease of native coronary artery without angina pectoris; I10 Essential (primary) hypertension; E78.00 Pure hypercholesterolemia, unspecified
CPT/HCPCS: 80053; 80061; 82043; 82570; 84443

== ENCOUNTER → 2020-11-24 11:12 | Outpatient (CLI) | payer OTHER, SELFPAY ==
[2020-10-05 14:51] VITALS: BMI 25.7
[2020-11-24 11:15] LABS: Bacteria 0 SEEN /hpf (None Seen); Mucous, Urine 0 SEEN /hpf (<or=2+); Red Blood Cells-Urine 0 SEEN /hpf (0-5); White Blood Cells 0 SEEN /hpf (0-5)
[2020-11-24 12:20] LABS: Color, Urine Yellow (Yellow); Glucose, Dipstick Normal (Normal); Ketone-Dipstick Negative (Negative); Leukocyte Esterase-Dipstick Negative /ul (Negative); Nitrite-Dipstick Negative (Negative); Occult Blood-Urine Negative /ul (Negative); Protein-Dipstick Negative (Negative); Specific Gravity, Urine 1.015 (1.002-1.030); Urine Bilirubin Dipstick Negative (Negative); Urine Clarity Clear (Clear); Urine Urobilinogen Normal (Normal)
[2020-11-24 12:28] LABS: Squamous Epithelial Cells - UA 0-5 SEEN /hpf (5-10)
== END ==
PROVIDERS: PCP Nurse Practitioner Family; Referring Provider Internal Medicine Endocrinology, Diabetes & Metabolism; Visit Provider Internal Medicine Endocrinology, Diabetes & Metabolism
DX: E11.9 Type 2 diabetes mellitus without complications (principal); R30.0 Dysuria
CPT/HCPCS: 81001; 87086

== ENCOUNTER → 2021-08-23 13:38 | Outpatient (CLI) | payer OTHER, SELFPAY ==
[2021-08-23 16:56] LABS: Cholesterol 140 mg/dL (200); High Density Lipoprotein 72 mg/dL; Triglycerides 37 mg/dL; Very Low Density Lipoprotein 7 mg/dL (5-40)
[2021-08-23 17:05] LABS: Microalbumin,Random Urine < 5.0 mg/L (NO RANGE EST.)
[2021-08-23 17:12] LABS: ALB/GLOB Ratio 0.9 RATIO (0.9-2.4); AST(SGOT) 21 U/L (15-37); Alanine Aminotransfer ALT/SGPT 29 U/L (13-56); Albumin, Serum 3.2 g/dL (3.2-5.0); Alkaline Phosphatase 55 U/L (45-117); Anion Gap 6 (5-15); BUN 16 mg/dL (7-18); Calcium,Total 8.3 mg/dL (8.5-10.1); Chloride 104 mmol/L (98-107); EST Glomerular Filtration Rate 83 mL/min (>60); Est Glom Filt Rate - Afr Amer 101 mL/min (>60); Globulin 3.5 g/dL (2.2-4.2); Glucose 168 mg/dL (74-106); Potassium 3.8 mmol/L (3.5-5.1); Protein, Total 6.7 g/dL (6.4-8.2); Sodium Level 138 mmol/L (136-145); Thyroid Stim Hormone (TSH) 0.56 uIU/mL (0.358-3.74)
== END ==
PROVIDERS: Internal Medicine Endocrinology, Diabetes & Metabolism; PCP Nurse Practitioner Family; Referring Provider Physician Assistant Medical; Visit Provider Physician Assistant Medical
DX: E78.2 Mixed hyperlipidemia (principal); E10.59 Type 1 diabetes mellitus with other circulatory complications; I10 Essential (primary) hypertension; E10.36 Type 1 diabetes mellitus with diabetic cataract; I25.10 Atherosclerotic heart disease of native coronary artery without angina pectoris
CPT/HCPCS: 36415; 80053; 80061; 82043; 82570; 84443

== ENCOUNTER → 2022-04-02 | Outpatient (CLI) | payer OTHER, SELFPAY ==
[2022-04-02 08:01] LABS: AST(SGOT) 35 U/L (15-37); Alanine Aminotransfer ALT/SGPT 38 U/L (13-56); Albumin, Serum 3.5 g/dL (3.2-5.0); Alkaline Phosphatase 54 U/L (45-117); Bilirubin, Direct 0.19 mg/dL (0.00-0.30); Cholesterol 102 mg/dL (200); Globulin 3.4 g/dL (2.2-4.2); High Density Lipoprotein 60 mg/dL; Protein, Total 6.9 g/dL (6.4-8.2); Triglycerides 47 mg/dL; Very Low Density Lipoprotein 9 mg/dL (5-40)
--- NOTE | 2022-04-02 09:28 | STRESSREP_ITS ---
Stress Test Report Date: 04-02-2022 Procedure: Exercise tolerance test/imaging study Indications: Chest pain; CAD; status post PCI Consent: Per the patient Procedure: The patient exercised on a Panda protocol for 11 minutes completing Stage III and 2 minutes of Stage IV achieving a peak heart rate of 171 bpm (96% predicted maximal heart rate) with a peak blood pressure 120/60 mmHg and a peak MET capacity of 13 METs. The baseline ECG demonstrated normal sinus rhythm. The peak exercise ECG demonstrated somatic/motion artifact with no obvious ECG changes. There were no cardiac dysrhythmias pretest, during exercise, or recovery. The functional capacity was considered good. There was no complaint of chest discomfort during exercise or recovery. The examination was discontinued secondary to leg fatigue. Impression: 1. Technically adequate (percent predicted maximal heart rate greater than 85%) exercise tolerance test 2. Peak exercise ECG with somatic/motion artifact with no obvious ECG changes 3. There were no cardiac dysrhythmias pretest, during exercise, or recovery 4. Nuclear images pending Myocardial perfusion imaging study: Technique: The patient was injected with 11.1 mCi of technetium 99m Cardiolite and subsequently rest SPECT Cardiolite nuclear imaging was obtained in the horizontal long, vertical long, and short axis views. The patient exercised on a Panda protocol for 11 minutes completing Stage III and 2 minutes of Stage IV achieving a peak heart rate of 171 bpm (96% predicted maximal heart rate) with a peak blood pressure 120/60 mmHg and a peak MET capacity of 13 METs. The patient was injected with 35.0 mCi of technetium 99m Cardiolite and subsequently stress SPECT Cardiolite nuclear imaging was obtained in the horizontal long, vertical long, and short axis views. A gated Cardiolite study at peak stress was obtained. Interpretation: Rest and stress SPECT Cardiolite nuclear imaging status post realignment, normalization, and attenuation correction, demonstrates the appearance of relative uniform tracer uptake and myocardial perfusion appearing within normal limits. There is end systolic thickening and brightening. The gated Cardiolite study demonstrates myocardial thickening and inward wall motion. The reported LVEF is 67%. Impression: 1. Rest and stress SPECT Cardiolite nuclear imaging demonstrate relative uniform tracer uptake and myocardial perfusion appearing within normal limits. 2. The gated Cardiolite study reports an LVEF of 67%. This note was generated with [employer] software. It may contain incorrect words, spelling, and punctuation that were not noted in checking the note before signing.
== END | disposition home or self-care (01) ==
LOC: CVS 07:00
PROVIDERS: Physician Assistant Medical; PCP Nurse Practitioner Family; Referring Provider Nurse Practitioner Gerontology; Visit Provider Nurse Practitioner Gerontology
DX: E78.00 Pure hypercholesterolemia, unspecified (principal); E78.2 Mixed hyperlipidemia; R07.9 Chest pain, unspecified; I25.10 Atherosclerotic heart disease of native coronary artery without angina pectoris
CPT/HCPCS: 36415; 78452; 80061; 80076; 93017; A9500; A4216

== ENCOUNTER → 2023-01-04 | Outpatient (CLI) | payer OTHER, SELFPAY ==
[2023-01-04 17:21] LABS: Microalbumin:Creatinine Ratio 6.9 mg/g CRE (<30 mg/g CRE)
[2023-01-04 17:31] LABS: AST(SGOT) 21 U/L (15-37); Alanine Aminotransfer ALT/SGPT 21 U/L (13-56); Albumin, Serum 3.3 g/dL (3.2-5.0); Alkaline Phosphatase 61 U/L (45-117); Bilirubin, Direct 0.11 mg/dL (0.00-0.30); Cholesterol 146 mg/dL (200); Globulin 3.8 g/dL (2.2-4.2); High Density Lipoprotein 81 mg/dL; Protein, Total 7.1 g/dL (6.4-8.2); Triglycerides 53 mg/dL; Very Low Density Lipoprotein 11 mg/dL (5-40)
[2023-01-04 17:31] LABS: Vitamin D,25 Hydroxy 35.6 ng/mL
[2023-01-04 17:39] LABS: ALB/GLOB Ratio 0.9 RATIO (0.9-2.4); AST(SGOT) 20 U/L (15-37); Alanine Aminotransfer ALT/SGPT 20 U/L (13-56); Albumin, Serum 3.4 g/dL (3.2-5.0); Alkaline Phosphatase 63 U/L (45-117); Anion Gap 6 (5-15); BUN 11 mg/dL (7-18); BUN/Creat Ratio 11.9 RATIO (10-20); Calcium,Total 8.5 mg/dL (8.5-10.1); Chloride 105 mmol/L (98-107); Cholesterol 153 mg/dL (200); Creatinine, Serum 0.93 mg/dL (0.55-1.02); EST Glomerular Filtration Rate 70 mL/min (>60); Est Glom Filt Rate - Afr Amer 84 mL/min (>60); Globulin 3.7 g/dL (2.2-4.2); Glucose 195 mg/dL (74-106); High Density Lipoprotein 82 mg/dL; Potassium 4.4 mmol/L (3.5-5.1); Protein, Total 7.1 g/dL (6.4-8.2); Sodium Level 139 mmol/L (136-145); Thyroid Stim Hormone (TSH) 1.01 uIU/mL (0.358-3.74); Triglycerides 51 mg/dL; Very Low Density Lipoprotein 10 mg/dL (5-40)
== END | disposition home or self-care (01) ==
LOC: LAB 15:44
PROVIDERS: Internal Medicine Endocrinology, Diabetes & Metabolism; PCP Nurse Practitioner Family; Referring Provider Nurse Practitioner Family; Visit Provider Nurse Practitioner Family
DX: E10.9 Type 1 diabetes mellitus without complications (principal); E78.2 Mixed hyperlipidemia; I10 Essential (primary) hypertension; I25.10 Atherosclerotic heart disease of native coronary artery without angina pectoris; E55.9 Vitamin D deficiency, unspecified; Z96.41 Presence of insulin pump (external) (internal)
CPT/HCPCS: 36415; 80053; 80061; 80076; 82043; 82306; 82570; 84443

== ENCOUNTER → 2024-02-07 | Outpatient (CLI) | payer OTHER, SELFPAY ==
--- OUTSIDE RECORDS SUMMARY | 2024-02-07 07:22 | XMS RPT_ITS | CCD ---
Author Name Unknown Address [address] [place] [address] Organization [facility] Care Team Providers Care Mosquito Sprayer Name Role Phone Ivone Luna NP Unavailable [phone] MIKEY SZYMANSKI Unavailable Unavailable [facility] Unavailable Unavailable MIKEY SZYMANSKI Unavailable Unavailable MIKEY SZYMANSKI Unavailable Unavailable MIKEY SZYMANSKI Unavailable Unavailable Waqar Rueda CNP Primary Care Provider WAQAR CH APRN, CNP [facility] CH APRN, CNP Attending U WAQAR Carcamo APRN, CNP Primary Care U CONNIE Tompkins DO Admitting Unavailable CONNIE HAQUE DO Primary Care Unavailable CONNIE HAQUE DO Attending Unavailable WAQAR RUEDA Consulting Unavailable WAQAR RUEDA Referring Unavailable PROVIDER, UNKNOWN Consulting Unavailable JULIANNA IBRAHIM CNP Admitting UnavailJULIANNA Garza CNP Primary Care UnavailJULIANNA Garza CNP Attending UnavailWAQAR Montoya Consulting Unavailable NADEEM SCANLON Admitting Unavailable NADEEM SCANLON Primary Care Unavailable NADEEM SCANLON Attending Unavailable PROVIDER, UNKNOWN Consulting Unavailable Allergies Allergy Classification Reported Allergen(s) Allergy Type Date of Onset Reaction(s) Facility (3 sources) atorvastatin; Translations: [ATORVASTATIN CALCIUM] Drug Allergy 11-28-2017 Myalgia [facility] Repository Medications Current Medications Medication Drug Class(es) Dates Sig (Normalized) Sig (Original) aspirin 81 mg oral tablet (4 sources) Nonsteroidal Anti-inflammatory Drug Start: 06-30-2019 take 1 tablet by mouth once daily [facility] ASPIRIN 81 MG CHEWABLE TAB TAKE ONE TABLET BY MOUTH EVERY DAY Start Date: 06/30/19 Status: Ordered Completed/Discontinued Medications Medication Drug Class(es) Dates Sig (Normalized) Sig (Original) atorvastatin 40 mg oral tablet (2 sources) HMG-CoA Reductase Inhibitor End: 05-01-2017 take 1 tablet by mouth once daily LIPITOR 40 MG TABS One tablet by mouth daily ATORVASTATIN CALCIUM [id number] Ivone Luna RHINOLOGIST biotin (2 sources) BIOTIN ORAL Take by mouth. 0 Active Problems Active Problems Problem Classification Problem Date Documented Date Episodic/Chronic Abdominal pain (2 sources) Lower abdominal pain, unspecified; Translations: [Lower abdominal pain, unspecified] Onset: 3 Episodic Anxiety disorders (1 source) Generalized anxiety disorder 07-05-2020 Chronic Cataract (1 source) Cataract; Translations: [Unspecified cataract] Onset: 7 01-08-2017 Chronic Coronary atherosclerosis and other heart disease (2 sources) Atherosclerotic heart disease of [place] coronary artery without angina pectoris; Translations: [Atherosclerotic heart disease of [place] coronary artery without angina pectoris] Onset: 8 Chronic Diabetes mellitus with complications (1 source) Type 1 diabetes mellitus; Translations: [Uncontrolled type 1 diabetes mellitus with renal manifestations] Onset: 5 03-14-2016 Chronic Diabetes mellitus without complication (2 sources) Type 1 diabetes mellitus without complications; Translations: [Type 1 diabetes mellitus] Onset: 7 01-08-2017 Chronic Disorders of lipid metabolism (2 sources) Hyperlipidemia; Translations: [Other hyperlipidemia] Onset: 7 01-08-2017 Chronic Genitourinary symptoms and ill-defined conditions (2 sources) Frequency of micturition; Translations: [Dysuria] Onset: 3 Episodic Heart valve disorders (3 sources) Tricuspid incompetence, non-rheumatic ; Translations: [Nonrheumatic tricuspid (valve) insufficiency] Onset: 6 03-14-2016 Chronic Heart valve disorders (1 source) Heart murmur 09-21-2019 Episodic Other connective tissue disease (1 source) Foreign body; Translations: [Residual foreign body in soft tissue] Episodic Other endocrine disorders (1 source) Hyperparathyroidism 06-25-2019 Chronic Other skin disorders (1 source) Skin lesion 05-02-2020 Episodic Other upper respiratory disease (1 source) Seasonal allergy 05-02-2020 Chronic Other upper respiratory infections (1 source) Streptococcal sore throat 02-19-2023 Episodic Unclassified (1 source) Unknown / UNK(Unknown) Onset: 8 Unclassified (1 source) Patient encounter status 05-02-2020 Urinary tract infections (2 sources) History of urinary tract infection; Translations: [Recurrent urinary tract infection] Onset: 7 01-08-2017 Episodic Past or Other Problems Problem Classification Problem Date Documented Da te Episodic/Chronic Coronary atherosclerosis and other heart disease (1 source) History of placement of stent for coronary artery disease; Translations: [Presence of other cardiac implants and grafts] Onset: 01-08-2017 01-08-2017 Episodic Diabetes mellitus without complication (1 source) Presence of insulin pump (external) (internal); Translations: [Presence of insulin pump (external) (internal)] Onset: 05-01-2017 05-02-2017 Episodic Hemorrhoids (1 source) Internal hemorrhoids; Translations: [Other hemorrhoids] Onset: 11-13-2011 11-13-2011 Episodic Malaise and fatigue (1 source) Fatigue; Translations: [Other fatigue] Onset: 06-23-2013 06-23-2013 Episodic Nonmalignant breast conditions (1 source) Breast lump; Translations: [Unspecified lump in breast] Onset: 01-08-2017 01-08-2017 Episodic Other connective tissue disease (1 source) Adhesive capsulitis of shoulder; Translations: [Adhesive capsulitis of unspecified shoulder] Onset: 05-21-2014 05-21-2014 Episodic Other non-traumatic joint disorders (1 source) Shoulder joint pain; Translations: [Pain in unspecified shoulder] Onset: 05-21-2014 05-21-2014 Episodic Other non-traumatic joint disorders (1 source) Shoulder pain; Translations: [Pain in left shoulder] Onset: 09-14-2014 09-14-2014 Episodic Other screening for suspected conditions (not mental disorders or infectious disease) (1 source) Increased testosterone level; Translations: [Other specified abnormal findings of blood chemistry] Onset: 03-14-2016 03-14-2016 Episodic Other skin disorders (1 source) Acne; Translations: [Other acne] Onset: 12-15-2008 12-15-2008 Episodic Other skin disorders (1 source) Hirsutism; Translations: [Hirsutism] Onset: 12-15-2008 12-15-2008 Episodic Residual codes; unclassified (1 source) FH: premature coronary heart disease; Translations: [Family history of ischemic heart disease and other diseases of the circulatory system] Onset: 03-15-2016 03-15-2016 Episodic Results Test Name Value Interpretation Reference Range Facil ity Vital Signs Date Time Vital Sign Value Performing Clinician Facility 06-05-2022 14:44-0400 Body temperature 98.4 [degF] Aliya Batres COURT ADMINISTRATOR.AUTOMATION CONTROLS EXPERT Work Phone: [facility] 06-05-2022 14:44-0400 Body weight 59.[address] ADMINISTRATOR.AUTOMATION CONTROLS EXPERT Work Phone: [facility] 06-05-2022 14:44-0400 Diastolic blood pressure 64 mm[Hg] Aliya Batres COURT ADMINISTRATOR.AUTOMATION CONTROLS EXPERT Work Phone: [facility] 06-05-2022 14:44-0400 Heart rate 80 /min Aliya Batres COURT ADMINISTRATOR.AUTOMATION CONTROLS EXPERT Work Phone: [facility] 06-05-2022 14:44-0400 Respiratory rate 16 /min Aliya Batres COURT ADMINISTRATOR.AUTOMATION CONTROLS EXPERT Work Phone: [facility] 06-05-2022 14:44-0400 SaO2% (BldA) [Mass fraction] 99 % Aliya Batres COURT ADMINISTRATOR.AUTOMATION CONTROLS EXPERT Work Phone: [facility] 06-05-2022 14:44-0400 Systolic blood pressure 102 mm[Hg] Aliya Batres COURT ADMINISTRATOR.AUTOMATION CONTROLS EXPERT Work Phone: [facility] 05-01-2017 10:05-0400 BMI (Body Mass Index) 22.96 kg/m2 Ivone Pratt Endocrinolog y Work Phone: 05-01-2017 10:05-0400 Body Temperature 97.9 [degF] Ivone Pratt Endocri nology Work Phone: 05-01-2017 10:05-0400 BP Diastolic 68 mm[Hg] Ivone Luna NP [facility] Work Phone: 05-01-2017 10:05-0400 BP Systolic 106 mm[Hg] Ivone Luna NP [facility] Work Phone: 05-01-2017 10:05-0400 Height 162.56 cm Ivone Luna NP [facility] Work Phone: 05-01-2017 10:05-0400 Pulse (Heart Rate) 71 /min Ivone Luna NP [facility] Work Phone: 05-01-2017 10:05-0400 Respiratory Rate 18 /min Ivone Luna NP [facility] Work Phone: 05-01-2017 10:05-0400 Weight 60.69 kg Ivone Luna NP [facility] Work Phone: 01-01-2017 16:19-0500 BSA (Body Surface Area) 1.66 m2 Ivone Luna NP [facility] Work Phone: 01-01-2017 16:19-0500 Height 162.56 cm Ivone Luna NP [facility] Work Phone: 01-01-2017 16:19-0500 Weight 61.64 kg Ivone Luna NP [facility] Work Phone: Encounters Encounter Date Encounter Type Care Provider Facility Start: 08-26-2023 End: 08-26-2023 ambulatory WAQAR RUEDA [facility] Start: 05-16-2023 End: 05-21-[address] ADMINISTRATOR - AUTOMATION CONTROLS EXPERT Facility:B Start: 05-16-2023 End: 05-20-2023 Outreach Lab [address]QAR RUEDA [address] ADMINISTRATOR - AUTOMATION CONTROLS EXPERT [facility] Start: 05-06-2023 End: 05-07-2023 Emergency department patient visit CONNIE SANZ [facility] Start: 04-03-2023 End: 04-03-2023 ambulatory JULIANNA WATSON IBRAHIM [facility] Start: 06-05-2022 End: 06-05-2022 Patient encounter procedure Aliya Batres COURT ADMINISTRATOR.AUTOMATION CONTROLS EXPERT Work Phone: [facility] Procedures Date Procedure Procedure Detail Performing Clinician Start: 12-10-[address] ADMINISTRATOR.AUTOMATION CONTROLS EXPERT Work Phone: Start: 10-01-2017 End: 10-01-2017 *CMP Complete Metabolic Panel Ivone Luna RHINOLOGIST Work Phone: Start: 01-17-2017 Adult depression screening assessment Aliya Batres COURT ADMINISTRATOR.AUTOMATION CONTROLS EXPERT Work Phone: Start: 03-21-2016 History of placement of stent in anterior descending branch of left coronary artery Status post insertion of drug-eluting stent into left anterior descending artery for coronary artery disease Aliya Batres COURT ADMINISTRATOR.AUTOMATION CONTROLS EXPERT Work Phone: Start: Placement of stent ROSSY RUEDA COURT ADMINISTRATOR - AUTOMATION CONTROLS EXPERT Adenoid excision WAQAR MENCHACA COURT ADMINISTRATOR - AUTOMATION CONTROLS EXPERT section WAQAR MENCHACA COURT ADMINISTRATOR - AUTOMATION CONTROLS EXPERT Plan of Treatment Date Care Activity Detail Author Start: 01-10-2027 HPV TESTING HPV TESTING [facility] Start: 01-10-2027 PAP TESTING PAP TESTING [facility] Start: 12-10-2023 Colonoscopy COLONOSCOPY [facility] Start: 12-10-2023 COLORECTAL CANCER SCREENING COLORECTAL CANCER SCREENING [facility] Start: 07-26-2022 Influenza vaccination INFLUENZA (#1) [facility] Start: 02-09-2021 Urine microalbumin profile DTAP,TDAP,TD (2 - Td or Tdap) [facility] Start: 05-20-2019 Hepatitis B surface antibody level LDL CHOLESTEROL [facility] Start: 11-19-2018 Hemoglobin A1c/Hemoglobin.total in Blood HBA1C [facility] Start: 2018 Mammography MAMMOGRAM [facility] Start: 01-17-2018 Adult depression screening assessment DEPRESSION SCREENING [facility] Start: 12-10-2017 Hepatitis B screening URINE ALBUMIN:CREATININE RATIO [facility] Start: 10-03-2017 End: 10-03-2017 Appointment Appointment [facility] Work Phone: Start: 10-01-2017 End: 10-01-2017 *CMP Complete Metabolic Panel *CMP Complete Metabolic Panel [facility] Work Phone: Start: 10-01-2017 End: 10-01-2017 Hemoglobin A1c/Hemoglobin.total mass fraction (Bld) *HgA1C [facility] Work Phone: Start: 05-01-2017 End: 05-02-2017 *CMP Complete Metabolic Panel *CMP Complete Metabolic Panel [facility] Work Phone: Start: 05-01-2017 End: 05-02-2017 *Microalbumin, Creatine Ratio, rand urine *Microalbumin, Creatine Ratio, rand urine [facility] Work Phone: Start: 05-01-2017 End: 05-02-2017 Hemoglobin A1c/Hemoglobin.total mass fraction (Bld) *HgA1C [facility] Work Phone: Start: 05-01-2017 End: 05-02-2017 Lipid panel [AGGREGATE] *Lipid Profile [facility] Work Phone: Start: 09-29-2016 Hepatitis C antibody, confirmatory test DILATED RETINAL EXAM [facility] Start: 02-24-2016 3 comp foot exam completed DIABETIC FOOT EXAM [facility] Start: 1997 HEPATITIS B (1 of 3 - Risk 3-dose series) HEPATITIS B (1 of 3 - Risk 3-dose series) [facility] Start: 1996 ANNUAL PCP TEAM CHRONIC DISEASE VISIT ANNUAL PCP TEAM CHRONIC DISEASE VISIT [facility] Start: 1996 HEPATITIS C SCREENING HEPATITIS C SCREENING [facility] Start: 1996 HIV SCREENING HIV SCREENING [facility] Start: 1984 PNEUMOCOCCAL (1 - PCV) PNEUMOCOCCAL (1 - PCV) [facility] Start: 04-09-1979 COVID-19 VACCINE (#1) COVID-19 VACCINE (#1) [facility] Immunizations Immunization Date Immunization Notes Care Provider Fa deanty 02-09-2011 tetanus toxoid, redu maría diphtheria toxoid, and acellular pertussis vaccine, adsorbed Aliya Batres COURT ADMINISTRATOR.[facility] Work Phone: [facility] Work Phone: 10-07-2008 influenza virus vaccine, unspecified formulation Aliya Batres COURT ADMINISTRATOR.AUTOMATION CONTROLS EXPERT Work Phone: [facility] Work Phone: 10-01-2006 influenza virus vaccine, unspecified formulation Aliya Batres COURT ADMINISTRATOR.AUTOMATION CONTROLS EXPERT Work Phone: [facility] Work Phone: Payers Date Payer Category Payer Unknown [id number] 2019 Unknown [employer] [id number] 2019-Present [phone] [address] [place] [address] PPO [id number] 1978 Unknown [id number] 1978 Unknown [id number] 1978 Unknown [id number] 1978 Unknown [id number] Unknown [id number] Social History Date Type Detail Facility [facility]: [facility] Start: 06-05-2022 Alcohol intake 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 MICRO - Microbiology PROCEDURE: Urine Culture [*1] SOURCE: Urine, Clean Catch BODY SITE: COLLECTED DATE/TIME: 05/16/2023 10:12 EDT RECEIVED DATE/TIME: 05/16/2023 14:10 EDT START DATE/TIME: 05/16/2023 14:10 EDT FREE TEXT SOURCE: FINAL REPORTS Final Report [] Verified Date/Time/Personnel: 05/17/2023 09:02 EDT 10,000 - 50,000 cfu/ml Mixed growth consistent with normal urogenital onel. Performing Locations *1: This test was performed at: [facility], [address] [place] [address], [facility] , [facility] ([place]) History of Present illness Narrative 06-05-2022 Aliya Batres APRN.[facility] - 06/05/2022 2:53 PM EDT Note Date & Type Note Facility 06-05-2022 History of Presen t illness Narrative Images from the original note were not included. This note was created using SnapSense. Subjective Mindy Joshua is a 41 year old female. 41 year old female with PMH [place] and [place] presents with complaints of splinter in nail. Acute onset Saturday Endorses that she was pulling weeds around a wooden fence Right ring finger. Right hand dominant. States she has attempted to dig and push out. just a little bit left at the tip I can't get Denies numbness or tingling Denies red streaking. Denies reduced or loss of ROM The history is provided by the patient. No product consultant was used. Musculoskeletal Problem This is a new problem. The current episode started in the past 7 days. The problem occurs constantly. The problem has been gradually improving. Pertinent negatives include no abdominal pain, anorexia, arthralgias, change in bowel habit, chest pain, chills, congestion, coughing, diaphoresis, fatigue, fever, headaches, joint swelling, myalgias, nausea, neck pain, numbness, rash, sore throat, swollen glands, urinary symptoms, vertigo, visual change, vomiting or weakness. Nothing aggravates the symptoms. Treatments tried: squeezing and pushing. The treatment provided mild relief. PAST MEDICAL HISTORY Diagnosis Date Hypercholesteremia [place] (myocardial infarction) (HCC) 02/2016 Type I (juvenile type) diabetes mellitus without mention of complication, uncontrolled since age 11 PAST SURGICAL HISTORY Procedure Laterality Date ARTHROPLASTY GLENOHUMRL JT HEMIARTHROPLASTY Right 10/2016 Arthroplasty, shoulder DELIVERY ONLY 2004, 2006 , low cervical COLONOSCOPY FLX DX W/COLLJ SPEC WHEN PFRMD 06/04/08 COLONOSCOPY FLX DX W/COLLJ SPEC WHEN PFRMD 10/31/2011 Colonoscopy HEART CATHETERIZATION 03/16/2016 with stent placement MANIPULATION-SHOULDER DISLOCATION W/ANESTH PAST SURGICAL HISTORY OF 2000 [facility] PAST SURGICAL HISTORY OF Adnoids Removed ALLERGIES Lipitor [Atorvastatin Calcium] MEDICATIONS ranolazine ER (RANEXA) 500 mg 12 hr tablet Take 500 mg by mouth twice daily. famotidine (PEPCID) 40 mg tablet fluticasone (FLONASE) 50 mcg/actuation nasal spray Use 2 Sprays in each nostril once daily. Rinse mouth after use. aspirin 81 mg chewable tablet Take 1 tablet by mouth once daily. BRILINTA 90 mg [...] CHEST PAIN. IF NO RELIEF CALL 911 coenzyme Q10 (COENZYME Q-10) 100 mg cap capsule Take 100 mg by mouth twice daily. obyxlsvw-hfwodjytccm-jave cb25 116-100 mg cap Take by mouth once daily. Multivitamin capsule Take 1 capsule by mouth once daily. ferrous sulfate 325 mg (65 mg iron) tablet Take 325 mg by mouth daily with breakfast. enalapril (VASOTEC) 2.5 mg tablet Take half tablet daily insulin lispro (HUMALOG) 100 unit/mL injection as directed in insulin pump up to 100 units daily blood sugar diagnostic (MOMENTFACE SRO ULTRA TEST) test strip check blood sugars 6 times daily glucagon, human recombinant, (GLUCAGON EMERGENCY KIT, HUMAN,) 1 mg injection INJECT SUBCUTANEOUSLY. USE DIRECTED insulin glargine (LANTUS) 100 unit/mL injection Use as directed if pump fails up to 50 units/day BIOTIN ORAL Take by mouth. Insulin Syringe-Needle U-100 (BD INSULIN SYRINGE UF II) 1/2 mL 31 x 16 Syrg use as directed when pump fails ranolazine ER (RANEXA) 500 mg 12 hr tablet FAMILY HISTORY Problem Relation Age of Onset Ischemic Heart Disease Mother Diabetes Mother Heart Maternal Grandfather Colon Cancer Father Social History Tobacco Use Smoking status: Never Smoker Smokeless tobacco: Never Used Vaping Use Vaping Use: Never used Substance Use Topics Alcohol use: No Drug use: Never Review of Systems Constitutional: Negative for chills, diaphoresis, fatigue and fever. HENT: Negative for congestion and sore throat. Respiratory: Negative for apnea, cough, choking and chest tightness. Cardiovascular: Negative for chest pain. Gastrointestinal: Negative for abdominal pain, anorexia, change in bowel habit, nausea and vomiting. Musculoskeletal: Negative for arthralgias, joint swelling, myalgias and neck pain. Skin: Negative for rash. +splinter nail Neurological: Negative for vertigo, weakness, numbness and headaches. Hematological: Negative for adenopathy. Does not bruise/bleed easily. Objective BP 102/64 Pulse 80 Temp 36.9 C (98.4 F) (Tympanic) Resp 16 Wt 59.6 kg (131 lb 6.4 oz) LMP 01/05/2022 SpO2 99% BMI 22.21 kg/m Physical Exam Vitals and nursing note reviewed. Constitutional: General: She is not in acute distress. Appearance: Normal appearance. She is normal weight. She is not ill-appearing, toxic-appearing or diaphoretic. HENT: Head: Normocephalic and atraumatic. Right Ear: Ear canal and external ear normal. Left Ear: Ear canal and external ear normal. Nose: Nose normal. No congestion or rhinorrhea. Mouth/Throat: Mouth: Mucous membranes are moist. Pharynx: No oropharyngeal exudate or posterior oropharyngeal erythema. Eyes: General: Right eye: No discharge. Left eye: No discharge. Extraocular Movements: Extraocular movements intact. Conjunctiva/sclera: Conjunctivae normal. Pupils: Pupils are equal, round, and reactive to light. Cardiovascular: Rate and Rhythm: Normal rate and regular rhythm. Pulses: Normal pulses. Heart sounds: Normal heart sounds. No murmur heard. No friction rub. Pulmonary: Effort: Pulmonary effort is normal. No respiratory distress. Breath sounds: Normal breath sounds. No stridor. No wheezing, rhonchi or rales. Chest: Chest wall: No tenderness. Abdominal: General: Abdomen is flat. There is no distension. Palpations: Abdomen is soft. There is no mass. Tenderness: There is no abdominal tenderness. There is no right CVA tenderness, left CVA tenderness, guarding or rebound. Hernia: No hernia is present. Musculoskeletal: General: No swelling, tenderness, deformity or signs of injury. Normal range of motion. Hands: Cervical back: Normal range of motion and neck supple. No rigidity. Right lower leg: No edema. Left lower leg: No edema. Lymphadenopathy: Cervical: No cervical adenopathy. Skin: General: Skin is warm and dry. Capillary Refill: Capillary refill takes less than 2 seconds. Coloration: Skin is not jaundiced or pale. Findings: No bruising, erythema, lesion or rash. Neurological: General: No focal deficit present. Mental Status: She is alert and oriented to person, place, and time. Cranial Nerves: No cranial nerve deficit. Sensory: No sensory deficit. Motor: No weakness. Coordination: Coordination normal. Gait: Gait normal. Psychiatric: Mood and Affect: Mood normal. Behavior: Behavior normal. Thought Content: Thought content normal. Judgment: Judgment normal. Assessment and Plan ASSESSMENT/PLAN: 1. Foreign body (FB) in soft tissue - ICD9: 729.6, ICD10: M79.5 Acute onset Saturday States weeding She has small FB sticking out of edge of nail. Hand soaked in warm soapy water. Utilizing alligator forceps, was able to remove without incident documented in this encounter [facility] History of Past illness Narrative 10-11-2011 Note Date & Type Note Facility documented as of this encounter (statuses as of 06/05/2022) [facility] Evaluation + Plan note Note Date & Type Note Facility Evaluation + Plan note No data available for this section [facility] Evaluation note Note Date & Type Note Facility documented in this encounter [facility] Discharge instructions Note Date & Type Note Facility Hospital Discharge instructions No data available for this section [facility] Progress note Note Date & Type Note Facility Progress note No data available for this section [facility] Summary Purpose Family History No Family History Records FoundNo Family History Records FoundNo Family History Records FoundNo Family History Records FoundNo Family History Records Found Advance Directives No Advanced Directives Records FoundDocuments on File Type Date Recorded 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 Advance Directive(s) 03/16/2016 8:31 AM Additional Source Comments INFORMATION SOURCE (unrecogn ized section and content) DATE CREATED AUTHOR AUTHOR'S ORGANIZ ATION 05/21/2018 [facility] DATE CREATED AUTHOR AUTHOR'S ORGANIZ ATION 05/21/2023 [facility] ([place]) DATE CREATED AUTHOR AUTHOR'S ORGANIZ ATION 08/31/2023 [facility] DATE CREATED AUTHOR AUTHOR'S ORGANIZ ATION 08/31/2023 [facility] Source Comments (unrecognize d section and content) In the event this informatio n is protected by the Federal Confidentiality of Alcohol and Drug Abuse Patient Records regulations: The Federal rules restrict any use of the information to criminally investigate or prosecute any alcohol or drug abuse patient.[facility] Reason for Visit (unrecogniz ed section and content) Specialty Diagnoses / Procedures Referred By Contac t Referred To Contact [facility] Diagnoses Splinter right middle finger nail, splinter underneath Procedures OFFICE/OUTPATIENT NEW MODERATE MDM 45-59 MINUTES NEW SAME DAY Self, MD Garcia [facility] [address] [place] [address] Referral ID Status Reason Start Date Expiration Date Visits Re quested Visits Authorized [id number] Closed 06/05/2022 11/24/2022 1 1 Care Teams (unrecognized sec tion and content) FOR RECORDS PERTAINING TO PATIENTS WHO ARE OR HAVE BEEN ENROLLED IN A CHEMICAL DEPENDENCY/SUBSTANCEABUSE PROGRAM, SOME INFORMATION MAY BE OMITTED. This clinical summary was aggregated from multiple sources. Caution should be exercised in using it in the provision of clinical care. This summary normalizes information from multiple sources, and as a consequence, information in this document may materially change the coding, format and clinical context of patient data. In addition, data may be omitted in some cases. CLINICAL DECISIONS SHOULD BE BASED ON THE PRIMARY CLINICAL RECORDS. [facility] [employer] [facility]. provides no warranty or guarantee of the accuracy or completeness of information in this document.
--- NOTE | 2024-02-07 16:07 | STRESSREP_ITS ---
Stress Test Report Exercise myocardial perfusion stress test. 43-year-old lady with a history of chest pain Stress protocol: Resting EKG demonstrates normal sinus rhythm with a rate of 67 bpm resting blood pressure is 112/68 mmHg. The patient exercised according to the regular Panda protocol for a total duration of 9 minutes and 8 seconds attaining a maximum heart rate of 153 bpm which was 87% of maximum predicted heart rate; the maximum workload was 10.4 metabolic equivalents. At rest there were no ST or T wave changes noted to suggest ischemia and at peak exercise upsloping ST changes only were noted which did not meet the criteria for ischemia. No clinical angina was noted the test was terminated due to the target heart rate being achieved/fatig ue. The peak blood pressure was 140/60 mmHg. Rate-pressure product was 19,800. Myocardial perfusion protocol. 12.0 mCi of technetium 99m sestamibi was injected at rest. The patient exercised according to regular Panda protocol for total duration of 9 minutes and 8 seconds and at peak exercise 36 mCi of technetium 99m sestamibi was injected stress images were obtained stress and rest images were reconstructed in comparing the short axis vertical long and horizontal long axis. Gated images were also obtained. Perfusion SPECT analysis: Review of the stress images demonstrate normal uptake of tracer noted in all areas of the myocardium. The resting images similarly demonstrate normal uptake of tracer noted in all areas of the myocardium. No areas of reversibility are noted to suggest ischemia no previous infarct was noted. Gated SPECT analysis: The gated ejection fraction is 72%. Conclusion: Normal exercise myocardial perfusion stress test at a high workload Preserved ejection fraction.
== END | disposition home or self-care (01) ==
PROVIDERS: PCP Nurse Practitioner Family; Referring Provider Internal Medicine Cardiovascular Disease; Visit Provider Internal Medicine Cardiovascular Disease
DX: R07.9 Chest pain, unspecified (principal); I25.10 Atherosclerotic heart disease of native coronary artery without angina pectoris
CPT/HCPCS: 78452; 93017; A9500; A4216

== ENCOUNTER → 2025-02-11 | Outpatient (CLI) | payer OTHER, SELFPAY ==
[2025-02-11 14:43] LABS: AST(SGOT) 28 U/L (<=31); Alanine Aminotransfer ALT/SGPT 18 U/L (<=34); Albumin, Serum 4.1 g/dL (3.5-5.0); Alkaline Phosphatase 56 U/L (35-104); Bilirubin, Direct 0.22 mg/dL (0.00-0.30); Cholesterol 161 mg/dL (<=200); Globulin 2.9 g/dL (2.2-4.2); High Density Lipoprotein 80 mg/dL; Low Density Lipoprotein Calc. 69 mg/dL; Total Bilirubin 0.53 mg/dL (0.00-1.30); Triglycerides 63 mg/dL; Very Low Density Lipoprotein 13 mg/dL (5-40); cholesterol:hdl ratio screen 2.02
== END | disposition home or self-care (01) ==
LOC: LAB 13:28
PROVIDERS: Physician Assistant Medical; PCP Nurse Practitioner Family; Referring Provider Nurse Practitioner Family; Visit Provider Internal Medicine Endocrinology, Diabetes & Metabolism
DX: E78.00 Pure hypercholesterolemia, unspecified (principal)
CPT/HCPCS: 80061; 80076

== ENCOUNTER → 2025-06-11 | Outpatient (CLI) | payer OTHER, SELFPAY ==
--- NOTE | 2025-06-11 13:59 | CDU_ITS ---
Reason For Study Reason For Study: Pain and Bulging Lt Neck, Tingling behind Lt Ear Rt. Velocities/BP Lt. Velocities/BP Prox CCA 75/21 cm/sec. Prox CCA 77/23 cm/sec. Mid CCA 92/32 cm/sec. Mid CCA 74/19 cm/sec. Dist CCA 66/24 cm/sec. Dist CCA 68/24 cm/sec. Prox ICA 54/20 cm/sec. Prox ICA 71/30 cm/sec. Mid ICA 104/43 cm/sec. Mid ICA 81/39 cm/sec. Dist ICA 90/42 cm/sec. Dist ICA 94/42 cm/sec. Rt. ICA/CCA = 1.1. Lt. ICA/CCA = 1.3. Prox ECA 75/9 cm/sec. Prox ECA 68/8 cm/sec. Rt. Vert. 42/15 cm/sec. Lt. Vert. 37/13 cm/sec. Right Extracranial There is intimal thickening but no significant atherosclerotic plaque noted in the right common carotid artery. There is intimal thickening but no significant atherosclerotic plaque noted in the right internal carotid artery. There is intimal thickening but no significant atherosclerotic plaque noted in the right external carotid artery. Antegrade flow is noted in the right vertebral artery. Left Extracranial There is intimal thickening but no significant atherosclerotic plaque noted in the left common carotid artery. There is intimal thickening but no significant atherosclerotic plaque noted in the left internal carotid artery. There is intimal thickening but no significant atherosclerotic plaque noted in the left external carotid artery. Antegrade flow is noted in the left vertebral artery. Procedure Carotid Duplex [id number]. This is a Carotid Duplex examination using B-mode, color flow and specral Doppler. Exam performed in department. VL/Carotid Duplex Ultrasound Interpretation Summary Normal right extracranial internal carotid. Normal left extracranial internal carotid. Patent and antegrade vertebrals bilaterally. Ordering Physician: Gilson Ash Referring Physician: Waqar Rueda Performed By: Jennifer Ash, RDCS, RVT
[2025-06-11 16:31] LABS: AST(SGOT) 28 U/L (<=31); Alanine Aminotransfer ALT/SGPT 26 U/L (<=34); Albumin, Serum 3.9 g/dL (3.5-5.0); Alkaline Phosphatase 52 U/L (35-104); Bilirubin, Direct 0.27 mg/dL (0.00-0.30); Cholesterol 183 mg/dL (<=200); Globulin 2.8 g/dL (2.2-4.2); Low Density Lipoprotein Calc. 84 mg/dL; Triglycerides 54 mg/dL; Very Low Density Lipoprotein 11 mg/dL (5-40); cholesterol:hdl ratio screen 2.06
[2025-06-11 16:46] LABS: AST(SGOT) 29 U/L (<=31); Alanine Aminotransfer ALT/SGPT 26 U/L (<=34); Albumin, Serum 4.0 g/dL (3.5-5.0); Alkaline Phosphatase 53 U/L (35-104); Anion Gap 10 (5-15); BUN 18 mg/dL (4-19); BUN/Creat Ratio 22.2 RATIO (10-20); Calcium,Total 8.8 mg/dL (7.6-11.0); Carbon Dioxide 26.7 mmol/L (21.0-32.0); Chloride 102 mmol/L (98-108); Globulin 2.7 g/dL (2.2-4.2); Glucose 116 mg/dL (70-99); Potassium 3.8 mmol/L (3.3-5.1); Vitamin D,25 Hydroxy 29.1 ng/mL (30-100)
[2025-06-11 17:14] LABS: Creatinine, Urine (random) 66.20 mg/dL (28.00-217.00); Microalbumin,Random Urine < 12.0 mg/L (<20 mg/L)
== END | disposition home or self-care (01) ==
LOC: CVS 13:57
PROVIDERS: Internal Medicine Endocrinology, Diabetes & Metabolism; Physician Assistant Medical; PCP Nurse Practitioner Family; Referring Provider Nurse Practitioner Family; Visit Provider Nurse Practitioner Family
DX: R09.89 Other specified symptoms and signs involving the circulatory and respiratory systems (principal); E10.65 Type 1 diabetes mellitus with hyperglycemia; R22.0 Localized swelling, mass and lump, head; R22.1 Localized swelling, mass and lump, neck; M54.2 Cervicalgia; I10 Essential (primary) hypertension; I25.10 Atherosclerotic heart disease of native coronary artery without angina pectoris; E78.2 Mixed hyperlipidemia; Z96.41 Presence of insulin pump (external) (internal); E03.9 Hypothyroidism, unspecified
CPT/HCPCS: 80053; 80061; 80076; 82043; 82306; 82570; 84443; 93880